=== PATIENT | female | born 1940 | race Caucasian/White ===

== ENCOUNTER → 2016-12-26 | Outpatient (CLI) | payer OTHER ==
[~2016-12-26] MED LIST: ALEN70TA4 PO; ASPI81TA28 PO; CALC-354 PO; CARB0.5D28 OPB; MXZC25 PO; PEDICHW50 PO; POTA10TA PO
[2016-12-26 17:24] LABS: ALT/SGPT 19 U/L (12-78); BLOOD UREA NITROGEN 18 mg/dl (7-18); BUN/CREATININE RATIO 18.8 (10-20); CALCIUM 10.1 mg/dl (8.5-10.1); CARBON DIOXIDE 28 mmol/L (21-32); CHLORIDE 99 mmol/L (98-107); CREATININE 0.94 mg/dl (0.60-1.20); GLUCOSE 89 mg/dl (70-99); POTASSIUM 4.3 mmol/L (3.5-5.1); SODIUM 136 mmol/L (136-145)
[2016-12-26 17:27] LABS: ALB/GLOB RATIO 1.3 (0.9-2); ALKALINE PHOSPHATASE 57 U/L (45-117); AST/SGOT 18 U/L (15-37)
== END | disposition home or self-care (01) ==
LOC: C.LABPVFM 11:33
PROVIDERS: ATTEND Nurse Practitioner
DX: I10 Essential (primary) hypertension (principal); E87.6 Hypokalemia

== ENCOUNTER → 2017-06-27 | Outpatient (CLI) | payer OTHER ==
[2017-06-27 12:30] LABS: BLOOD UREA NITROGEN 21 mg/dl (7-18); BUN/CREATININE RATIO 21.8 (10-20); CALCIUM 10.5 mg/dl (8.5-10.1); CARBON DIOXIDE 33 mmol/L (21-32); CHLORIDE 100 mmol/L (98-107); CREATININE 0.96 mg/dl (0.60-1.20); GLUCOSE 97 mg/dl (70-99); POTASSIUM 3.8 mmol/L (3.5-5.1); SODIUM 135 mmol/L (136-145)
== END | disposition home or self-care (01) ==
LOC: C.LABPVFM 08:51
PROVIDERS: ATTEND Nurse Practitioner
DX: I10 Essential (primary) hypertension (principal); E87.6 Hypokalemia; M81.0 Age-related osteoporosis without current pathological fracture; R63.0 Anorexia

== ENCOUNTER → 2017-06-30 | Outpatient (CLI) | payer OTHER | END | disposition home or self-care (01) | LOC: C.LABPVFM 08:40 | PROVIDERS: ATTEND Nurse Practitioner | DX: E83.50 Unspecified disorder of calcium metabolism (principal) ==

== ENCOUNTER → 2017-07-17 | Outpatient (CLI) | payer OTHER | END | disposition home or self-care (01) | LOC: C.MAMM 10:32 | PROVIDERS: ATTEND Nurse Practitioner | DX: M81.0 Age-related osteoporosis without current pathological fracture (principal); M85.88 Other specified disorders of bone density and structure, other site ==

== ENCOUNTER 2017-08-08 20:05 | Emergency (ER) | payer OTHER ==
[~2017-08-08] VITALS: Ht 157.5 cm; Wt 54.0 kg
[2017-08-08 20:10] VITALS: TEMP 36.6; Ht 157.5 cm; Wt 54.0 kg
[2017-08-08] MEDS ORDERED: XYLOCAINE 1%/SOD BICARB 20 ML VIAL INFIL ONE (21:00)
--- NOTE | 2017-08-08 21:37 | EMERGENCY ROOM VISIT NOTE ---
ED Visit Note First contact with patient: 20:45 CHIEF COMPLAINT: Left fifth Finger laceration HISTORY OF PRESENT ILLNESS: This 77-year-old patient cut the left fifth finger with a knife when she was peeling potatoes this evening.. She cannot get the bleeding to stop. The patient is on a baby aspirin daily but no other blood thinners. The patient's tetanus is up-to-date. The patient is right-hand dominant. REVIEW OF SYSTEMS: 6 system review was performed and was negative unless stated otherwise in history of present illness. PMH: The patient is healthy; hypertension SOCIAL HISTORY: Patient lives with her . PHYSICAL EXAM: Vital Signs: Were reviewed Reviewed Nurse's notes. GENERAL: 69- year-old white female appears in no acute distress. MENTAL Status: Alert and oriented 3. LEFT FIFTH FINGER: There is a 1.5 cm long laceration on the dorsal aspect of the distal phalanx. The edges gape apart with traction. There is no foreign material in the wound and it looks clean. There is moderate bleeding. No deep structures such as tendons or nerves are seen in the base of the wound. Extension of the finger is full and strong. EMERGENCY DEPARTMENT COURSE: The patient was evaluated. The patient's EMR medication list were reviewed. Wound Repair: Complexity: Basic. Verbal consent was obtained after the risks and benefits were explained, including but not limited to bleeding, scarring, infection, pain, and bone/joint /nerve damage. The skin was prepped with betadine and a sterile field set. The wound was anesthetized with 1.2 ml of 1% buffered lidocaine. A finger tourniquet was applied. Copious irrigation was performed using sterile saline. The wound was explored for foreign bodies and none found. Debridement was not performed. The wound edges were approximated using 5-0 Ethilon with 3 simple interrupted sutures. Hemostasis and excellent approximation was achieved. Antibacterial ointment and a sterile dressing applied. Detailed wound care instructions and signs and symptoms of infection reviewed with the patient. No complications and the patient tolerated the procedure well. The patient was independently evaluated by Dr. sexton who agrees with treatment plan. The patient was discharged home in stable condition. DIAGNOSIS: 1 cm left fifth Finger laceration DISCHARGE INSTRUCTIONS & TREATMENT: Keep wound clean and dry. No water on the area for 12-24 hrs then no soaking until sutures removed. Do not allow any crusting or dried blood to accumulate on sutures. If this occurs, use a 1:1 solution of hydrogen peroxide/water on a Q-tip to clean the wound. Use an antibiotic ointment for 3-4 days, then let wound dry. Suture removal in 8 days. Follow up sooner for any signs of infection (increasing redness, swelling , drainage). Ice and elevate for swelling and pain. Tylenol 650 mg every 6 hrs for pain. Problem List Medical Problems: (1) Acoustic neuroma Status: Chronic (2) Hypertension Status: Chronic Current/Historical Medications Scheduled Alendronate Sodium (Fosamax), 70 MG PO WK Aspirin (Aspirin Ec), 81 MG PO DAILY Calcium Carbonate-Cholecalcife (Caltrate 600+D), 1 TAB PO DAILY Pediatric Multiple Vitamin W/ (Flintstones Chewable), 1 TAB PO QAM Potassium Chloride (K-Tabs), 1 TAB PO DAILY Triamterene/Hctz (Triamterene/Hctz 37.5-25MG Tab), 1 TAB PO DAILY Scheduled PRN Carboxymethylcellulose Sodium (Refresh Tears), 1 DROPS OPB DAILY PRN for PRN Allergies Coded Allergies: Cephalosporins (Unverified Allergy, Intermediate, RASH, 01/05/10) Cefazolin (Verified Allergy, Unknown, UNKNOWN, 09/21/14) Uncoded Allergies: ADHESIVE TAPE (Allergy, Intermediate, RASH, 11/16/09) Vital Signs Date Time Temp Pulse Resp B/P (MAP) Pulse Ox O2 Delivery O2 Flow Rate FiO2 08/08/17 20:10 36.6 76 18 188/90 100 Room Air Departure Information Referrals Page Dunn, [email or web address] (PCP) Patient Instructions [facility]
[2017-08-08 21:46] VITALS: BP 181/85; PULSE 88; O2SAT 100
== END 2017-08-08 21:45 | disposition home or self-care (01) ==
LOC: C.EDB 20:05 → C.EDD 21:45
DX: S61.217A Laceration without foreign body of left little finger without damage to nail, initial encounter (principal); D33.3 Benign neoplasm of cranial nerves; I10 Essential (primary) hypertension; W26.0XXA Contact with knife, initial encounter; Y93.G1 Activity, food preparation and clean up; Z79.82 Long term (current) use of aspirin; Z79.899 Other long term (current) drug therapy

== ENCOUNTER 2017-08-16 08:26 | Emergency (ER) | payer OTHER ==
[~2017-08-16] VITALS: Ht 165.1 cm; Wt 52.0 kg
[2017-08-16 08:35] VITALS: BP 172/84; PULSE 77; TEMP 36.6; O2SAT 98; Ht 165.1 cm; Wt 52.0 kg
--- NOTE | 2017-08-16 22:15 | EMERGENCY ROOM VISIT NOTE ---
ED Visit Note First contact with patient: 08:46 77 woman presents to ED for suture removal after having sutures placed on 08/08 on her finger after cutting her finger with a knife when cutting potatoes. Denies f/c, n/v, redness, discharge. Well-appearing, AFVSS Sutures removed by nursing. Site appears well-healed without erythema or warmth. Return instructions d/w patient. Otherwise, no further f/u required.
== END 2017-08-16 09:00 | disposition home or self-care (01) ==
LOC: C.EDB 08:29 → C.EDA 09:00
DX: S61.219D Laceration without foreign body of unspecified finger without damage to nail, subsequent encounter (principal); W26.0XXD Contact with knife, subsequent encounter; Y93.G1 Activity, food preparation and clean up; Y99.8 Other external cause status

== ENCOUNTER → 2017-11-10 | Outpatient (CLI) | payer OTHER ==
[~2017-11-10] MED LIST changes: -CALC-354 PO
--- NOTE | 2017-11-11 07:47 | MAMMOGRAPHY REPORT ---
BILATERAL DIGITAL SCREENING MAMMOGRAM WITH CAD: 11/10/2017 CLINICAL HISTORY: Routine screening. Patient has no complaints. TECHNIQUE: Bilateral CC and MLO views were obtained. Current study was also evaluated with a Compute r Aided Detection (CAD) system. COMPARISON: Comparison is made to exams dated: 11/06/2016 mammogram, 11/02/2015 mammogram, 10/31/2014 m ammogram, 10/27/2013 mammogram, 10/21/2012 mammogram, and 10/15/2011 mammogram - [facility]. BREAST COMPOSITION: The tissue of both breasts is heterogeneously dense, which may obscure small mas ses. FINDINGS: There are mild vascular calcifications in the breasts. A few benign rim calcifications and punctate microcalcifications. Stable nodularity in the lateral posterior left breast. No new suspi cious mass, architectural distortion or cluster of microcalcifications is seen. IMPRESSION: ACR BI-RADS CATEGORY 1: NEGATIVE There is no mammographic evidence of malignancy. A 1 year screening mammogram is recommended. The pa tient will receive written notification of the results. Approximately 10% of breast cancers are not detected with mammography. A negative mammographic report should not delay biopsy if a clinically suggestive mass is present. Kimberly Viera M.D. ay/:11/10/2017 08:32:48 Attending Technologist: Paige Posadas RT(R)(M), [facility] [employer] Professor: Staci Freitas RT(R)(M), [facility] letter sent: Normal 1/2 BI-RADS Code: ACR BI-RADS Category 1: Negative
== END | disposition home or self-care (01) ==
LOC: C.MAMM 07:13
PROVIDERS: ATTEND Nurse Practitioner
DX: Z12.31 Encounter for screening mammogram for malignant neoplasm of breast (principal)

== ENCOUNTER → 2018-01-08 | Outpatient (CLI) | payer OTHER ==
[2018-01-08 13:31] LABS: ALBUMIN 3.7 gm/dl (3.4-5.0); ALT/SGPT 18 U/L (12-78); AST/SGOT 13 U/L (15-37); BLOOD UREA NITROGEN 17 mg/dl (7-18); CARBON DIOXIDE 33 mmol/L (21-32); GLUCOSE 86 mg/dl (70-99); SODIUM 135 mmol/L (136-145)
[2018-01-08 13:34] LABS: ALKALINE PHOSPHATASE 65 U/L (45-117); TOTAL PROTEIN 7.5 gm/dl (6.4-8.2)
== END | disposition home or self-care (01) ==
LOC: C.LABPVFM 09:40
PROVIDERS: ATTEND Nurse Practitioner
DX: I10 Essential (primary) hypertension (principal); M81.0 Age-related osteoporosis without current pathological fracture; E87.6 Hypokalemia; E83.50 Unspecified disorder of calcium metabolism

== ENCOUNTER → 2018-02-06 | Outpatient (CLI) | payer OTHER ==
--- NOTE | 2018-02-06 11:19 | DIAGNOSTIC IMAGING REPORT ---
R PELVIS 1 OR 2 VIEWS CLINICAL HISTORY: RIGHT FEMUR PAIN pain COMPARISON: None. DISCUSSION: Severe degenerative change right hip. Deformity of the right acetabulum with associated sclerosis of the articular margins not only of the femoral head but also acetabulum. Severe narrowing of the joint space. Configuration of the femoral head showed potential underlying dysplastic change. Mild superior migration of the deformed femoral bony components. No evidence for acetabular protrusion. Moderate degenerative fusion of the right sacroiliac joint. IMPRESSION: Severe degenerative change right hip and acetabulum. The above report was generated using voice recognition software. It may contain grammatical, syntax or spelling errors. Electronically signed by: Melvin Mir M.D. 02/06/2018 11:18 AM Dictated Date/Time: 02/06/2018 11:16 AM
--- NOTE | 2018-02-06 11:20 | DIAGNOSTIC IMAGING REPORT ---
RIGHT FEMUR 3 VIEWS CLINICAL HISTORY: Right leg pain. FINDINGS: AP, frog-leg, and lateral views of the right femur are correlated with radiographs of the right hip dated 06/23/2015. The skeletal structures are osteopenic. No fracture is identified. There is advanced arthritic change with extensive deformity and flattening identified in the right femoral head. There is superior subluxation of the femoral head with a broad shallow acetabulum. Extensive bony sclerosis and subchondral cyst from aeration is present within the femoral head and the acetabulum. A large calcified joint body is questioned. The femoral shaft is normal in appearance. The knee joint is grossly maintained noting arthritic change. The overlying soft tissues are normal in appearance. Small phlebolith are noted in the right hemipelvis. IMPRESSION: 1. No acute bony abnormality is identified. 2. There is osteopenia with extensive chronic deformity and arthritic change of the right hip and acetabulum as above. This is similar in appearance to the 06/23/2015 examination. Electronically signed by: Jan Perry M.D. 02/06/2018 11:19 AM Dictated Date/Time: 02/06/2018 11:17 AM
--- NOTE | 2018-02-06 12:28 | DIAGNOSTIC IMAGING REPORT ---
R HIP UNILATERAL 1 VIEW CLINICAL HISTORY: RIGHT HIP PAIN COMPARISON STUDY: Right femur 02/06/2018. FINDINGS: Single crosstable lateral view of the right hip was submitted for review. There is severe osteoarthritis at the hip with a shallow acetabulum and associated coxa magna. There is [id number] articulation. No definite fracture or dislocation on this single view. Soft tissues are unremarkable. Large calcified joint body is again noted. IMPRESSION: Chronic deformity and severe osteoarthritis within the right hip is again noted. No definite fracture identified on this single view. Electronically signed by: Dipesh Aguayo M.D. 02/06/2018 12:26 PM Dictated Date/Time: 02/06/2018 12:25 PM
== END | disposition home or self-care (01) ==
LOC: C.RDSM 12:08
PROVIDERS: ATTEND Physician Assistant
DX: M25.551 Pain in right hip (principal); M16.11 Unilateral primary osteoarthritis, right hip; M85.851 Other specified disorders of bone density and structure, right thigh

== ENCOUNTER → 2018-07-09 | Outpatient (CLI) | payer OTHER ==
[2018-07-09 13:17] LABS: BLOOD UREA NITROGEN 15 mg/dl (7-18); CALCIUM 9.6 mg/dl (8.5-10.1); CARBON DIOXIDE 29 mmol/L (21-32); GLUCOSE 90 mg/dl (70-99); POTASSIUM 3.9 mmol/L (3.5-5.1); SODIUM 131 mmol/L (136-145)
== END | disposition home or self-care (01) ==
LOC: C.LABPVFM 09:18
PROVIDERS: ATTEND Nurse Practitioner
DX: M81.0 Age-related osteoporosis without current pathological fracture (principal); I10 Essential (primary) hypertension

== ENCOUNTER 2022-08-30 17:18 | Inpatient (IN) ==
--- NOTE | 2022-08-30 18:18 | CT Scan Report ---
CT head/brain wo con CLINICAL HISTORY: Stroke Alert Technique: Contiguous axial CT images of the head were acquired from the base of the skull to the kat carlos without intravenous contrast administration. Images were viewed in brain, subdural and [facility] . Automated dose lowering techniques and/or adjustment according to patient size were utilized for this exam. Comparison: Comparison is made to CT head 10/20/2018 Findings: Areas of decreased attenuation are present in the periventricular and subcortical white matter bilate rally consistent with small vessel ischemic disease. Generalized cerebral atrophy with commensurate e nlargement of the ventricles, sulci, and cisterns is also present. There is no acute intracranial hem orrhage or evidence of acute territorial infarction. No shift of the midline structures, mass effect, or extra-axial abnormalities are shown. Atherosclerotic calcifications are present in the intracran ial segments of the internal carotid arteries. Old encephalomalacia in the right cerebellum is unchan ged. Postsurgical changes of right cerebellar surgery noted. Imaged portions of the paranasal sinuses and mastoid air cells are clear. The orbits appear normal. There are no acute fractures of the calvaria or scalp swelling. Impression: No acute intracranial hemorrhage, no evidence of acute territorial infarction or other acute intracra nial disease process. Postsurgical changes are again seen in the right cerebellum. ACT 112: Negative or not required by law. Electronically signed by: Mihai Angela M.D. 08/30/2022 6:17 PM
[2022-08-30 19:15] LABS: Hematocrit (blood only) 34.2 % (34.1-44.9); Hemoglobin 11.7 g/dl (12.0-16.0); Mean Corpuscular Hemoglobin 29.3 pg (25.0-34.0); Mean Corpuscular Hgb Conc 34.2 g/dL (32.0-36.0); Mean Corpuscular Volume 85.7 fL (80.0-100.0); Mean Platelet Volume 10.1 fL (9.4-12.3); Platelet Count 271 K/uL (130-400); RDW Coefficient of Variation 13.3 % (11.5-14.5); RDW Standard Deviation 41.7 fL (36.4-46.3); Red Blood Count 3.99 M/uL (3.93-5.22); White Blood Count 9.27 K/ul (4.8-10.8)
[2022-08-30 19:31] LABS: Partial Thromboplastin Time 27.7 Seconds (21.0-31.0); Prothrombin Time 10.6 Seconds (9.0-12.0)
[2022-08-30 19:40] LABS: Alanine Aminotransferase 31 U/L (7-52); Albumin Globulin Ratio 1.3 (0.9-2); Albumin Level 4.1 gm/dl (3.4-5.0); Alkaline Phosphatase 80 U/L (34-104); Anion Gap 7 (3-11); Aspartate Aminotransferase 37 U/L (13-39); BUN Creatinine Ratio 29.3 (10-20); Bilirubin,Total 0.5 mg/dl (0.2-1.0); Blood Urea Nitrogen 22 mg/dl (6-23); Calcium 8.9 mg/dl (8.5-10.1); Carbon Dioxide 25 mmol/L (21-32); Chloride 91 mmol/L (98-107); Est GFR (African American) 85.4 ml/min; Est GFR (Non-African American) 73.7 ml/min; Globulin 3.2 gm/dl (2.5-4.0); Glucose 119 mg/dl (70-99(Fasting)); Magnesium 1.8 mg/dl (1.7-2.4); Potassium 4.8 mmol/L (3.5-5.1); Sodium 123 mmol/L (136-145); Total Protein 7.3 gm/dl (6.0-8.3)
[2022-08-30] MEDS ORDERED: SODIUM CHLORIDE 0.9% 1000ML 500 ML IV ONE (19:47)
--- NOTE | 2022-08-30 20:02 | Emergency Department Note ---
Impression & Plan Acute hyponatremia, Leg weakness, bilateral, Acute alteration in mental status ED Provider Note NAME: LULU KC AGE: 82 SEX: F : 1940 ARRIVES VIA: Walk-In INFORMANT: Patient, the patient's family members ED PROVIDER(S): Manohar Lazo DO CHIEF COMPLAINT: Syncope HPI: The patient is an 82-year-old female who presented to the emergency department for an evaluation of syncope. The patient had an episode while she was riding in a car with her significant other. Apparently she lost consciousness and slumped forward. Her significant other called 911 and the patient was evaluated by 911 and EMS. The patient was awake and alert. She did not have any specific complaints. It was advised that the patient come to the emergency department but the patient and her significant other wanted to come by private vehicle. The patient herself has no complaints. Family member stated that they do not feel that she is eating and drinking appropriately. They have noticed no nausea or vomiting. They state the patient has had overall generalized weakness especially over the last few weeks. She is had no changes to her medications. She said no new medications. She has had no trauma. ROS: See above HPI for pertinent positives & negatives. A total of 10 systems reviewed and were otherwise negative. PAST MEDICAL HISTORY: See Below PAST SURGICAL HISTORY: See Below FAMILY HISTORY: See Below SOCIAL HISTORY: See Below HOME MEDICATIONS: See Below ALLERGIES: See Below VITALS: See Below PHYSICAL EXAMINATION: GENERAL: She is awake and looking around the room. She does not appear to be un comfortable or in pain. EYES: The conjunctivae are clear. The pupils are round and reactive. EARS, NOSE, MOUTH AND THROAT: The nose is without any evidence of any deformity. NECK: The neck is nontender and supple. RESPIRATORY: Normal respiratory effort is noted there is no evidence of wheezing rhonchi or rales CARDIOVASCULAR: Regular rate and rhythm noted there no murmurs rubs or gallops normal S1 normal S2. GASTROINTESTINAL: The abdomen is soft. Abdomen is nontender. MUSCULOSKELETAL/EXTREMITIES: There is no evidence of gross deformity full range of motion is noted in the hips and shoulders. SKIN: Skin is warm and dry. Trace pedal edema was noted bilaterally. NEUROLOGIC: Awake and looking around the room. Strength was diminished but symmetric. Patellar tendon reflexes are 1+ bilaterally. MEDICAL DECISION MAKING: The patient is an 82-year-old female who presented to the emergency department for an evaluation of generalized weakness. The patient was reevaluated multiple times. I discussed patient's laboratory and radiographic studies with her and her family members. Ultimately she was found to have signs of hyponatremia. Given her symptoms I discussed her case with the on-call [facility] hospitalist. They have agreed to evaluate the patient in the emergency department for further management and disposition. The patient was treated with a small fluid bolus. Triage Nursing notes reviewed. Prior medical records reviewed Vital Signs: reviewed and remarkable for no significant abnormalities Differential diagnosis: Infection, dehydration, metabolic abnormality, hypo/hyperglycemia, electrolyte disturbance, anemia, hypoxia, cardiac sources, intracerebral event, toxicologic, neurologic, as well as other pathologies. ER treatment provided: See below Diagnostics interpreted by me: ECG: EKG was obtained in the emergency department. My interpretation is normal sinus rhythm at 86 bpm. There is no ectopy. Anterior Q waves are noted. This was compared to a tracing from May 24, 2022. No changes were noted. Cardiac Monitoring: An order was placed for continuous cardiac monitoring. The monitor shows a rate of 82 bpm with sinus rhythm. Laboratory studies: As stated above and show below. Imaging studies: See below Consultation(s): I discussed this case with Dr. Bean who is on-call for the [facility] hospitalist group. Past Med/Surg History Medical History Acoustic neuroma Depression Gait disturbance Hearing loss Hx of cataract Hypercalciuria Hypertension Hypertensive urgency Hypokalemia Osteoporosis SIADH (syndrome of inappropriate ADH production) Vitamin D deficiency Surgical History History of craniotomy excision of acoustic neuroma Hx of cataract surgery Hx of cholecystectomy Hx of hysterectomy Hx of total knee replacement Family History Aunt Breast cancer Brother Colorectal cancer Heart problem Mother Heart problem Father Heart problem Sister Multiple sclerosis Other Family history non-contributory Denies family history of Ovarian cancer Prostate cancer Myocardial infarction Social History Smoking Status: Never smoker Second Hand Exposure: No; Hx Alcohol Use: No Hx Substance Use: No Preferred Language: Mauritanian Communication Ability: Impaired Visual Impairment: No Limitations Hearing Ability: Hard of Hearing Skid Man Required: No Beliefs That Will Affect Care: None marital status: Current Living Situation: Spouse current occupational status: retired How many Children do You have: 2 Other Information That Helps Us Care for You: No Feels Safe at Home: Yes Safety Concerns: Feels Safe At This Time Childhood Exposure to Second-Hand Smoke: No caffeine: Yes Dental Care, Regularly: Yes Physical Activity Frequency: Does not Exercise Seatbelt Use: always Sunscreen Use: No Assistive Devices: Hearing Aid - Left, Walker and Wheelchair Allergies Allergies Allergy/AdvReac Type Severity Reaction Status Date / Time Cephalosporins Allergy Intermediate RASH Verified 08/27/22 09:05 cefazolin Allergy Unknown UNKNOWN Verified 08/27/22 09:05 donepezil [From Aricept] Allergy Unknown Unknown Verified 08/27/22 09:05 adhesive tape Allergy Verified 08/27/22 09:05 amlodipine [From Norvasc] Allergy Edema Verified 08/27/22 09:05 Sulfa (Sulfonamide Allergy Verified 08/27/22 09:05 Antibiotics) Home Meds Home Medications Medication Instructions Recorded Confirmed aspirin 81 mg tablet,delayed 81 mg PO DAILY 10/21/18 08/27/22 release (Aspir-) pediatric multivitamin no.7-folic 1 tab PO DAILY 10/21/18 08/27/22 acid 100 mcg chewable tablet (Flintstones Tab Chew) acetaminophen 500 mg tablet 500 mg PO Q6H PRN Pain 09/05/20 08/30/22 (Tylenol Extra Strength) Previous Rx's Medication Instructions Recorded escitalopram oxalate 5 mg tablet 5 mg PO HS PRN Anxiety #90 tabs 01/10/22 lisinopril 5 mg tablet 5 mg PO DAILY #90 tabs 07/11/22 cinacalcet 30 mg tablet 30 mg PO DAILY #30 tabs 08/27/22 Results & Data (ED) Vital Signs Vital Signs - 24 hr 08/30/22 17:25 08/30/22 20:17 08/30/22 20:34 Temperature 36.8 C 36.8 C Temperature Source Temporal Artery Scan Oral Pulse Rate 96 H Pulse Rate [Apical] 89 Respiratory Rate 20 18 Respiratory Effort / Characteristics Non-Labored Respiratory Depth Normal Blood Pressure 136/63 Blood Pressure [Right Arm] 160/73 H Blood Pressure Mean 87 Blood Pressure Mean [Right Arm] 102 Pulse Oximetry 98 95 Oxygen Delivery Method Room Air Room Air Sepsis Recent Fever Within 48 Hours No Sepsis New/Unexplained Change in Mental Status N/A Sepsis Action Taken by Nursing No Action Required Home Medications Current Medication List: was personally reviewed by me Laboratory Data Attestation: I reviewed the patient's lab results. Result diagrams: 08/31/22 06:04 08/31/22 06:04 Lab Results 08/30/22 08/30/22 08/30/22 Range/Units 18:59 18:59 18:59 WBC 9.27 (4.8-10.8) K/ul RBC 3.99 (3.93-5.22) M/uL Hgb 11.7 L (12.0-16.0) g/dl Hct 34.2 (34.1-44.9) % MCV 85.7 (80.0-100.0) fL MCH 29.3 (25.0-34.0) pg MCHC 34.2 (32.0-36.0) g/dL RDW Std Deviation 41.7 (36.4-46.3) fL RDW Coeff of Missy 13.3 (11.5-14.5) % Plt Count 271 (130-400) K/uL MPV 10.1 (9.4-12.3) fL PT 10.6 (9.0-12.0) Seconds INR 1.0 (0.9-1.1) APTT 27.7 (21.0-31.0) Seconds PTT Ratio 1.0 Sodium 123 L (136-145) mmol/L Potassium 4.8 (3.5-5.1) mmol/L Chloride 91 L (98-107) mmol/L Carbon Dioxide 25 (21-32) mmol/L Anion Gap 7 (3-11) BUN 22 (6-23) mg/dl Creatinine 0.75 (0.6-1.2) mg/dl Est Cr Clr Drug Dosing Not Reportable Est GFR ( Amer) 85.4 ml/min Est GFR (Non-Af Amer) 73.7 ml/min BUN/Creatinine Ratio 29.3 H (10-20) Glucose 119 H (70-99(Fasting)) mg/dl Osmolality (280-300) mOsm/kg Calcium 8.9 (8.5-10.1) mg/dl Magnesium 1.8 (1.7-2.4) mg/dl Total Bilirubin 0.5 (0.2-1.0) mg/dl AST 37 (13-39) U/L ALT 31 (7-52) U/L Alkaline Phosphatase 80 (34-104) U/L Total Protein 7.3 (6.0-8.3) gm/dl Albumin 4.1 (3.4-5.0) gm/dl Globulin 3.2 (2.5-4.0) gm/dl Albumin/Globulin Ratio 1.3 (0.9-2) SARS-CoV-2, RNA, NAAT (NEGATIVE) 08/30/22 08/30/22 Range/Units 18:59 19:51 WBC (4.8-10.8) K/ul RBC (3.93-5.22) M/uL Hgb (12.0-16.0) g/dl Hct (34.1-44.9) % MCV (80.0-100.0) fL MCH (25.0-34.0) pg MCHC (32.0-36.0) g/dL RDW Std Deviation (36.4-46.3) fL RDW Coeff of Missy (11.5-14.5) % Plt Count (130-400) K/uL MPV (9.4-12.3) fL PT (9.0-12.0) Seconds INR (0.9-1.1) APTT (21.0-31.0) Seconds PTT Ratio Sodium (136-145) mmol/L Potassium (3.5-5.1) mmol/L Chloride (98-107) mmol/L Carbon Dioxide (21-32) mmol/L Anion Gap (3-11) BUN (6-23) mg/dl Creatinine (0.6-1.2) mg/dl Est Cr Clr Drug Dosing Est GFR ( Amer) ml/min Est GFR (Non-Af Amer) ml/min BUN/Creatinine Ratio (10-20) Glucose (70-99(Fasting)) mg/dl Osmolality 265 L (280-300) mOsm/kg Calcium (8.5-10.1) mg/dl Magnesium (1.7-2.4) mg/dl Total Bilirubin (0.2-1.0) mg/dl AST (13-39) U/L ALT (7-52) U/L Alkaline Phosphatase (34-104) U/L Total Protein (6.0-8.3) gm/dl Albumin (3.4-5.0) gm/dl Globulin (2.5-4.0) gm/dl Albumin/Globulin Ratio (0.9-2) SARS-CoV-2, RNA, NAAT NEGATIVE (NEGATIVE) Administered Medications Sodium Chloride (Sodium Chloride 1 Gm Tablet) 1 gm PO BID LAVINIA Stop: 09/29/22 22:35 Last Admin: 08/31/22 00:28 Dose: 1 gm Documented By: PAH Discontinued Medications Sodium Chloride (Nss 1000ml) 500 mls @ 999 mls/hr IV .Q31M ONE Stop: 08/30/22 20:17 Last Infusion: 08/30/22 20:29 Dose: 0 mls/hr Documented By: Admin: 08/30/22 19:57 Dose: 999 mls/hr Documented By: QGV Imaging Data Radiologist's Impression: Chest X-Ray 08/30/22 20:02 XR chest 1V portable CLINICAL HISTORY: weakness TECHNIQUE: Single frontal radiograph of the chest was obtained. Comparison: Comparison is made to chest radiograph 05/24/2022 FINDINGS: No lines and tubes are seen. Calcified aortic knob is seen. Linear atelectasis at the left lower lung is seen. No evidence of pleural effusion or pneumothorax. Old healed rib fractures are noted with bony bridging. IMPRESSION: No acute chest disease. ACT 112: Negative or not required by law. Electronically signed by: Mihai Angela M.D. 08/30/2022 8:35 PM Discharge Plan Visit Data Chief Complaint: Illness Stated Complaint: DISORIENTED, PASSED OUT ED Provider: Manohar Lazo Discharge Problem: Acute hyponatremia, Leg weakness, bilateral, Acute alteration in mental status Patient Disposition: Admitted As Inpatient Discharge Instructions Interventions: ED Discharge Assessment Last Done: 08/30/22 22:08
--- NOTE | 2022-08-30 20:20 | History & Physical Report ---
Date of Service August 30, 2022 Assessment & Plan (1) Hyponatremia: Plan: - Chronically low at 130-132 over the past 2 years but 123 today and is likely the cause of her near-syncope/syncope event today. - Received 500 cc NS in ED. - Will start salt tabs. - Serum osm 265, urine studies pending. - Chronic balance issues s/p acoustic neuroma, not likely a symptom of hyponatremia. - Fluid restriction. (2) Near syncope: Plan: - Likely due to hyponatremia. She has had several other episodes of near syncope or syncope this summer and a cardiac workup in May was negative for cardiac etioloy. Neuro note from 07/24 indicates it is not seizure, CVA/TIA, or PArkinson's disease. - Most likely cause is SIADH induced hyponatremia. - PT and OT to eval and treat regarding overall weakness. - Orthostatic VS daily. 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 Has been seen by Dr. Aguilar with endocrinology since for osteoporosis, hyperparathyroidism, as well as SIADH. - Not on any meds that could cause or contribute. Patient was offered but cannot afford urea. - Strongly encourage to only drink water when thirsty. Should not increase water intake to help with strength. (4) Hypertension: Plan: - Continue lisinopril. (5) Hyperparathyroidism: Plan: - Continue w/ Calcinet. Patient not interested in parathyroid surger. (6) Osteoporosis: Plan: - See #7 hyperparathyroidism. (7) Benign head tremor: Plan: - Parkinson dz r/o by neurology. Currently not requiring treatment, likely refractory to pharmacotherapy and risks > benefits. (8) Depression: Plan: - Continue lexapro. Plan - Admit to PCU. - SCDs for VTE ppx. - Full Code. History of Present Illness Primary Care Provider: HU Oliveira Rubivj Arzate is an 84-year-old female with past medical history significant for SIADH, hypertension, hypercalcemia, and depression who presents today after a possible syncopal episode. She was the passenger in a car with her when she suddenly slumped forward and stop responding. They did call 911 and upon their arrival, patient was alert, oriented, and had no complaints at that time. In our ED, sodium is low at 123, an acute change from just 3 days ago when it was 132. Patient says she has been feeling well over the past several days, however family has concerned that she is not eating and drinking well at home and that she has just been generally weak for several weeks. It seems they have been encouraging increased oral intake, both foods and water to increase her strength. She does have a documented history of SIADH and her sodium is chronically low around 130. She has been taken off any medications that could further worsen this and orellana followed with Dr. Aguilar. [employer] to be in idiopathic SIADH. His strict recommendations to limit oral intake to only when she is thirsty. She cannot afford urea. My exam, patient does not complain of anything and is felt well prior to today's event. She had 2 syncopal events over the past that are vasovagal in nature in setting of dehydration from diarrhea or vomiting. She has been evaluated both neurology and cardiology standpoint, and is not felt that her episodes are indicative of seizures, TIA/CVA, Parkinson's disease or due to a sinus arrhythmia or other cardiac etiology. In the ED, she is mildly hypertensive and borderline tachycardic. Not from her low sodium, labs are significant for hemoglobin 11.7, dropped from 13.1 several months ago. Not had any dark stools or obvious rectal bleeding. Allergies Allergy/AdvReac Type Severity Reaction Status Date / Time Cephalosporins Allergy Intermediate RASH Verified 08/27/22 09:05 cefazolin Allergy Unknown UNKNOWN Verified 08/27/22 09:05 donepezil [From Aricept] Allergy Unknown Unknown Verified 08/27/22 09:05 adhesive tape Allergy Verified 08/27/22 09:05 amlodipine [From Norvasc] Allergy Edema Verified 08/27/22 09:05 Sulfa (Sulfonamide Allergy Verified 08/27/22 09:05 Antibiotics) Home Medications Medication Instructions Recorded Confirmed Type aspirin 81 mg tablet,delayed 81 mg PO DAILY 10/21/18 08/27/22 History release (Aspir-) pediatric multivitamin no.7-folic 1 tab PO DAILY 10/21/18 08/27/22 History acid 100 mcg chewable tablet (Flintstones Tab Chew) acetaminophen 500 mg tablet 500 mg PO Q6H PRN Pain 09/05/20 08/30/22 History (Tylenol Extra Strength) escitalopram oxalate 5 mg tablet 5 mg PO HS PRN Anxiety #90 tabs 01/10/22 08/30/22 Rx lisinopril 5 mg tablet 5 mg PO DAILY #90 tabs 07/11/22 08/30/22 Rx cinacalcet 30 mg tablet 30 mg PO DAILY #30 tabs 08/27/22 08/30/22 Rx Past Med/Surg History Medical History Acoustic neuroma Depression Gait disturbance Hearing loss Hx of cataract Hypercalciuria Hypertension Hypertensive urgency Hypokalemia Osteoporosis SIADH (syndrome of inappropriate ADH production) Vitamin D deficiency Surgical History History of craniotomy excision of acoustic neuroma Hx of cataract surgery Hx of cholecystectomy Hx of hysterectomy Hx of total knee replacement Family History Aunt Breast cancer Brother Colorectal cancer Heart problem Mother Heart problem Father Heart problem Sister Multiple sclerosis Other Family history non-contributory Denies family history of Ovarian cancer Prostate cancer Myocardial infarction Social History Smoking Status: Never smoker Second Hand Exposure: No; Hx Alcohol Use: No Hx Substance Use: No Preferred Language: Mauritanian Communication Ability: Impaired Visual Impairment: No Limitations Hearing Ability: Hard of Hearing [employer] Required: No Beliefs That Will Affect Care: None marital status: Current Living Situation: Spouse current occupational status: retired How many Children do You have: 2 Other Information That Helps Us Care for You: No Feels Safe at Home: Yes Safety Concerns: Feels Safe At This Time Childhood Exposure to Second-Hand Smoke: No caffeine: Yes Dental Care, Regularly: Yes Physical Activity Frequency: Does not Exercise Seatbelt Use: always Sunscreen Use: No Assistive Devices: Hearing Aid - Left, Walker and Wheelchair Review of Systems Review of Systems: Constitutional: No fever/chills, weakness, fatigue, myalgias, anorexia, night sweats Eyes: No diplopia, no worsening or blurred vision ENT: normal hearing, no trouble swallowing Respiratory: No cough, sputum, dyspnea at rest or on exertion Cardiovascular: No chest pain, tightness or palpitations Abdomen: No pain, nausea, vomiting, diarrhea or constipation : Denies dysuria, hematuria, increased urgency/frequency, urinary retention Musculoskeletal: No joint pain, calf pain, swelling Neurologic: No weakness, numbness/tingling, or balance problems Psychiatric: No anxiety or depression Skin: No rash or itch Physical Exam Physical Exam: General: awake, alert, no apparent distress Head: Normocephalic, atraumatic ENT: PERRL, EOMI, no pharyngeal exudate, mucous membranes moist Chest: Clear to auscultation, on room air, no adventitious breath sounds Cardiac: Regular rate and rhythm, no murmur, no JVD, normal peripheral pulses, good capillary refill Abdominal: NABS x 4 quadrants, soft, nontender to palpation, no rebound, guarding or tenderness Extremities: Normal inspection, no peripheral edema or erythema, calfs nontender to palpation Psych: Normal mood and affect Neuro: AAO x 3, strength intact bilaterally and rated 5/5, no motor deficits, speech is clear, no peripheral sensory deficits Skin: no rash or erythema Results & Data Results & Data ([facility]) Vital Signs (Past 12 Hours) Vital Signs Temp Pulse Resp BP Pulse Ox O2 Del Method 08/30/22 17:25 36.8 C 96 H 20 136/63 98 Room Air Laboratory Results Abnormal lab results 08/30/22 08/30/22 08/30/22 Range/Units 18:59 18:59 18:59 Hgb 11.7 L (12.0-16.0) g/dl Sodium 123 L (136-145) mmol/L Chloride 91 L (98-107) mmol/L BUN/Creatinine Ratio 29.3 H (10-20) Glucose 119 H (70-99(Fasting)) mg/dl Osmolality 265 L (280-300) mOsm/kg Diagnostic Findings Head CT 08/30/22 17:28 CT head/brain wo con CLINICAL HISTORY: Stroke Alert Technique: Contiguous axial CT images of the head were acquired from the base of the skull to the vertex without intravenous contrast administration. Images were viewed in brain, subdural and bone windows. Automated dose lowering techniques and/or adjustment according to patient size were utilized for this exam. Comparison: Comparison is made to CT head 10/20/2018 Findings: Areas of decreased attenuation are present in the periventricular and subcortical white matter bilaterally consistent with small vessel ischemic disease. Generalized cerebral atrophy with commensurate enlargement of the ventricles, sulci, and cisterns is also present. There is no acute intracranial hemorrhage or evidence of acute territorial infarction. No shift of the midline structures, mass effect, or extra-axial abnormalities are shown. Atherosclerotic calcifications are present in the intracranial segments of the internal carotid arteries. Old encephalomalacia in the right cerebellum is unchanged. Postsurgical changes of right cerebellar surgery noted. Imaged portions of the paranasal sinuses and mastoid air cells are clear. The orbits appear normal. There are no acute fractures of the calvaria or scalp swelling. Impression: No acute intracranial hemorrhage, no evidence of acute territorial infarction or other acute intracranial disease process. Postsurgical changes are again seen in the right cerebellum. ACT 112: Negative or not required by law. Electronically signed by: Mihai Angela M.D. 08/30/2022 6:17 PM Chest X-Ray 08/30/22 20:02 XR chest 1V portable CLINICAL HISTORY: weakness TECHNIQUE: Single frontal radiograph of the chest was obtained. Comparison: Comparison is made to chest radiograph 05/24/2022 FINDINGS: No lines and tubes are seen. Calcified aortic knob is seen. Linear atelectasis at the left lower lung is seen. No evidence of pleural effusion or pneumothorax. Old healed rib fractures are noted with bony bridging. IMPRESSION: No acute chest disease. ACT 112: Negative or not required by law. Electronically signed by: Mhiai Angela M.D. 08/30/2022 8:35 PM ECG Additional Comments: pending at time of admission Code Status & VTE Plan Code Status Full Code. Supervising Physician Co-Signing Physician Notes Attending addendum: I have physically seen this patient, have supervised the SANYA's activities, and agree with the H&P unless as otherwise noted. Assessment and Plan: Hyponatremia/history of SIADH- Sodium 123, serum osmolality 265, urine osmolality pending Start sodium chloride 1 g p.o. twice daily Fluid restrict as noted to 1500 cc Did receive 500 cc normal saline from the ED Likely cause of near syncope Education needed for patient and family Hyperparathyroidism- Following with endocrinology Dr. Aguilar Remaining orders and notations as noted PG Care Time/CCT Total # of Minutes Spent Total Time Spent with Patient: Total time spent is greater than 50% in coordination of care (as documented) at patient's floor/unit and/or counseling patient: Coding Level of Care Code 67461 Initial Inpt Care Lvl 3 Diagnoses Hyponatremia E87.1 Near syncope R55 SIADH (syndrome of inappropriate ADH production) E22.2 Hypertension I10 Hyperparathyroidism E21.3 Osteoporosis M81.0 Benign head tremor G25.0 Depression F32.9
--- NOTE | 2022-08-30 20:37 | XRay Report ---
XR chest 1V portable CLINICAL HISTORY: weakness TECHNIQUE: Single frontal radiograph of the chest was obtained. Comparison: Comparison is made to chest radiograph 05/24/2022 FINDINGS: No lines and tubes are seen. Calcified aortic knob is seen. Linear atelectasis at the left lower lung is seen. No evidence of pleural effusion or pneumothorax. Old healed rib fractures are noted with yasmine ny bridging. IMPRESSION: No acute chest disease. ACT 112: Negative or not required by law. Electronically signed by: Mihai Angela M.D. 08/30/2022 8:35 PM
[2022-08-30] MEDS ORDERED: ONDANSETRON INJ 2 MG/ML 2 ML VIAL IV PRN (22:36)
[2022-08-30] MEDS ORDERED: ESCITALOPRAM OXALATE 10 MG TAB PO PRN (22:36)
[2022-08-30] MEDS ORDERED: ACETAMINOPHEN 500 MG TAB PO PRN (22:36)
[2022-08-30] MEDS ORDERED: POLYETHYLENE (MIRALAX) 17 GM PACK PO PRN (22:36)
[2022-08-30 23:11] LABS: Appearance Urine Clear (Clear); Bacteria Urine Automated Negative (Negative); Bilirubin Urine Negative (Negative); Blood Urine Negative (Negative); Color Urine Yellow; Epithelial Cell Urine Auto >30 /lpf (0-5); Glucose Urine UA Negative (Negative); Ketones Urine 1+ (Negative); Leukocyte Esterase Urine Negative (Negative); Nitrite Urine Negative (Negative); Protein Urine 1+ (Negative); RBC Urine Automated 0-4 /hpf (0-4); Specific Gravity Urine 1.013 (1.000-1.030); Urobilinogen Urine Negative (Negative)
[2022-08-31] MEDS: SODIUM CHLORIDE 1 GM TABLET PO SCH ×3 (00:28→20:02)
[2022-08-31 06:27] LABS: Basophils # (auto) 0.02 K/uL (0-0.2); Basophils % (auto) 0.4 %; Eosinophils # (auto) 0.05 K/uL (0-0.50); Hematocrit (blood only) 31.4 % (34.1-44.9); Hemoglobin 10.5 g/dl (12.0-16.0); Immature Granulocytes # (auto) 0.01 K/uL (0.00-0.02); Immature Granulocytes % (auto) 0.2 %; Lymphocytes # (auto) 0.86 K/uL (1.2-3.4); Lymphocytes % (auto) 17.3 %; Mean Corpuscular Hemoglobin 28.8 pg (25.0-34.0); Mean Corpuscular Hgb Conc 33.4 g/dL (32.0-36.0); Monocytes # (auto) 0.77 K/uL (0.24-0.82); Monocytes % (auto) 15.5 %; Neutrophils # (auto) 3.26 K/uL (1.4-6.5); Neutrophils % (auto) 65.6 %; Platelet Count 228 K/uL (130-400); RDW Coefficient of Variation 13.4 % (11.5-14.5); RDW Standard Deviation 42.2 fL (36.4-46.3); Red Blood Count 3.65 M/uL (3.93-5.22); White Blood Count 4.97 K/ul (4.8-10.8)
[2022-08-31 08:01] LABS: BUN Creatinine Ratio 28.1 (10-20); Calcium 8.7 mg/dl (8.5-10.1); Est GFR (African American) 95.6 ml/min; Est GFR (Non-African American) 82.5 ml/min; Magnesium 1.8 mg/dl (1.7-2.4); Potassium 4.5 mmol/L (3.5-5.1)
[2022-08-31] MEDS: CINACALCET HCL 30 MG TAB PO SCH (09:10)
[2022-08-31] MEDS: lisinopril 5 MG TAB PO SCH (09:10)
--- NOTE | 2022-08-31 11:11 | Hospitalist Progress Note ---
Date of Service August 31, 2022 Assessment & Plan (1) Hyponatremia: Plan: -Patient has a history of hyponatremia from SIADH -Presents with near syncope, found to have a serum Sodium of 123 -Started on salt tablets and fluid restriction -Serum sodium today 129 -Will continue fluid restriction and salt tablets -Recheck BMP tomorrow (2) Near syncope: Plan: - Likely due to hyponatremia. She has had several other episodes of near syncope or syncope this summer and a cardiac workup in May was negative for cardiac etioloy. Neuro note from 07/24 indicates it is not seizure, CVA/TIA, or PArkinson's disease. - Most likely cause is SIADH induced hyponatremia. - PT and OT to eval and treat regarding overall weakness. - Orthostatic VS daily. 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 Has been seen by Dr. Aguilar with endocrinology since for osteoporosis, hyperparathyroidism, as well as SIADH. - Not on any meds that could cause or contribute. Patient was offered but cannot afford urea. - Strongly encourage to only drink water when thirsty. Should not increase water intake to help with strength. (4) Hypertension: Plan: -BP 119/64 today - Continue lisinopril. (5) Hyperparathyroidism: Plan: - Continue w/ Calcinet. Patient not interested in parathyroid surgery (6) Osteoporosis: Plan: - See #7 hyperparathyroidism. (7) Benign head tremor: Plan: - Parkinson dz r/o by neurology. Currently not requiring treatment, likely refractory to pharmacotherapy and risks > benefits. (8) Depression: Plan: - Continue lexapro. Plan -Monitor - SCDs for VTE ppx. - Full Code. Admission and Anticipated Discharge Date Admission Date: August 30, 2022 Subjective patient seen and examined, hard of hearing, no new complaints Review of Systems Review of Systems: All systems reviewed are negative, apart from the ones contained in the history. Physical Exam Physical Exam: The patient is awake, alert and oriented 3, well developed and well nourished, normocephalic and atraumatic, lying in bed and in no acute distress. HEENT--PERRL, EOMI, mucous membranes and oropharynx mildly dry Neck--supple. No JVD. No bruits. Thyroid normal, trachea midline, no adenopathy. Heart--normal S1 and S2. No murmurs, rubs or gallops. Lungs--clear bilaterally, no respiratory distress, no accessory muscle use. Abdomen--normal bowel sounds and soft. Mild epigastric and left sided abdominal pain Extremities--no cyanosis or clubbing. No edema. Dermatologic--normal skin turgor, normal color, no abnormal lymph nodes, no rash. Neurologic--cranial nerves II through XII grossly intact. Rheumatologic--normal range of motion. Psychiatric--normal affect. Results & Data Results [facility] ([facility]) Vital Signs (Past 12 Hours) Vital Signs Temp Pulse Pulse Resp BP Pulse Ox O2 Del Method 08/31/22 11:04 99.1 F 86 19 119/64 96 Room Air 08/31/22 08:05 99.3 F 83 19 131/64 94 08/31/22 09:14 83 08/31/22 04:02 90 08/31/22 04:01 98.5 F 96 H 18 155/74 H 97 Room Air PG Care Time/CCT Total # of Minutes Spent Total Time Spent with Patient: Total time spent is greater than 50% in coordination of care (as documented) at patient's floor/unit and/or counseling patient: Coding Level of Care Code 39137 Subseq Hosp Care Lvl 2 Diagnoses Hyponatremia E87.1 Near syncope R55 SIADH (syndrome of inappropriate ADH production) E22.2 Hypertension I10 Hyperparathyroidism E21.3 Osteoporosis M81.0 Benign head tremor G25.0 Depression F32.9 Time Spent (min) 35
[2022-09-01 07:10] LABS: BUN Creatinine Ratio 29.3 (10-20); Calcium 8.4 mg/dl (8.5-10.1); Creatinine Clr Calc Pharmacy 56.5 ml/min; Est GFR (African American) 98.8 ml/min; Est GFR (Non-African American) 85.2 ml/min; Potassium 4.1 mmol/L (3.5-5.1)
[2022-09-01] MEDS: lisinopril 5 MG TAB PO SCH (09:07)
[2022-09-01] MEDS: CINACALCET HCL 30 MG TAB PO SCH (09:08)
[2022-09-01] MEDS: SODIUM CHLORIDE 1 GM TABLET PO SCH ×2 (09:08→20:00)
--- NOTE | 2022-09-01 11:12 | Hospitalist Progress Note ---
Date of Service September 01, 2022 Assessment & Plan (1) Hyponatremia: Plan: - Chronically low at 130-132 over the past 2 years but 123 on admission and is likely the cause of her near-syncope/syncope event. - Received 500 cc NS in ED. - Was started on salt tabs. 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 She has had several other episodes of near syncope or syncope this summer and a cardiac workup in May was negative for cardiac etioloy. Neuro note from 07/24 indicates it is not seizure, CVA/TIA, or PArkinson's disease. - Most likely cause is SIADH induced hyponatremia. - PT and OT to eval and treat regarding overall weakness. - Orthostatic VS daily. 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 Has been seen by Dr. Aguilar with endocrinology since for osteoporosis, hyperparathyroidism, as well as SIADH. - Not on any meds that could cause or contribute. Patient was offered but cannot afford urea. - Strongly encourage to only drink water when thirsty. Should not increase water intake to help with strength. (4) Hypertension: Plan: - Continue lisinopril. (5) Hyperparathyroidism: Plan: - Continue w/ Calcinet. Patient not interested in parathyroid surger. (6) Osteoporosis: Plan: - See #7 hyperparathyroidism. (7) Benign head tremor: Plan: - Parkinson dz r/o by neurology. Currently not requiring treatment, likely refractory to pharmacotherapy and risks > benefits. (8) Depression: Plan: - Continue lexapro. Plan -Hopefully d/c tomorrow morning if serum sodium is back to wnl Admission and Anticipated Discharge Date Admission Date: August 30, 2022 Subjective patient seen and examined, hard of hearing, no new complaints Review of Systems Review of Systems: All systems reviewed are negative, apart from the ones contained in the history. Physical Exam Physical Exam: The patient is awake, alert and oriented 3, well developed and well nourished, normocephalic and atraumatic, lying in bed and in no acute distress. HEENT--PERRL, EOMI, mucous membranes and oropharynx mildly dry Neck--supple. No JVD. No bruits. Thyroid normal, trachea midline, no adenopathy. Heart--normal S1 and S2. No murmurs, rubs or gallops. Lungs--clear bilaterally, no respiratory distress, no accessory muscle use. Abdomen--normal bowel sounds and soft. Mild epigastric and left sided abdominal pain Extremities--no cyanosis or clubbing. No edema. Dermatologic--normal skin turgor, normal color, no abnormal lymph nodes, no rash. Neurologic--cranial nerves II through XII grossly intact. Rheumatologic--normal range of motion. Psychiatric--normal affect. Results & Data Results & Data ([facility]) Vital Signs (Past 12 Hours) Vital Signs Temp Pulse Pulse Resp BP Pulse Ox O2 Del Method 09/01/22 10:58 97.5 F L 71 16 112/48 L 97 Room Air 09/01/22 08:19 Room Air 09/01/22 07:28 73 09/01/22 07:10 98.2 F 72 17 150/70 H 94 Room Air 09/01/22 03:16 98.2 F 80 18 148/74 H 97 Room Air PG Care Time/CCT Total # of Minutes Spent Total Time Spent with Patient: Total time spent is greater than 50% in coordination of care (as documented) at patient's floor/unit and/or counseling patient: Coding Level of Care Code 91047 Subseq Hosp Care Lvl 2 Diagnoses Hyponatremia E87.1 Near syncope R55 SIADH (syndrome of inappropriate ADH production) E22.2 Hypertension I10 Hyperparathyroidism E21.3 Osteoporosis M81.0 Benign head tremor G25.0 Depression F32.9 Time Spent (min) 35
[2022-09-02 06:55] LABS: BUN Creatinine Ratio 28.1 (10-20); Calcium 8.5 mg/dl (8.5-10.1); Creatinine Clr Calc Pharmacy 50.5 ml/min; Est GFR (African American) 95.6 ml/min; Est GFR (Non-African American) 82.5 ml/min; Potassium 4.1 mmol/L (3.5-5.1)
[2022-09-02] MEDS: CINACALCET HCL 30 MG TAB PO SCH (08:44)
[2022-09-02] MEDS: SODIUM CHLORIDE 1 GM TABLET PO SCH (08:44)
[2022-09-02] MEDS: lisinopril 5 MG TAB PO SCH (08:44)
--- NOTE | 2022-09-02 08:51 | Discharge Summary ---
Discharge Summary Date of Service September 02, 2022 Admission HPI Per Admitting Provider Rubi Arzate is an 84-year-old female with past medical history significant for SIADH, hypertension, hypercalcemia, and depression who presents today after a possible syncopal episode. She was the passenger in a car with her when she suddenly slumped forward and stop responding. They did call 911 and upon their arrival, patient was alert, oriented, and had no complaints at that time. In our ED, sodium is low at 123, an acute change from just 3 days ago when it was 132. Patient says she has been feeling well over the past several days, however family has concerned that she is not eating and drinking well at home and that she has just been generally weak for several weeks. It seems they have been encouraging increased oral intake, both foods and water to increase her strength. She does have a documented history of SIADH and her sodium is chronically low around 130. She has been taken off any medications that could further worsen this and orellana followed with Dr. Aguilar. [place] to be in idiopathic SIADH. His strict recommendations to limit oral intake to only when she is thirsty. She cannot afford urea. My exam, patient does not complain of anything and is felt well prior to today's event. She had 2 syncopal events over the past that are vasovagal in nature in setting of dehydration from diarrhea or vomiting. She has been evaluated both neurology and cardiology standpoint, and is not felt that her episodes are indicative of seizures, TIA/CVA, Parkinson's disease or due to a sinus arrhythmia or other cardiac etiology. In the ED, she is mildly hypertensive and borderline tachycardic. Not from her low sodium, labs are significant for hemoglobin 11.7, dropped from 13.1 several months ago. Not had any dark stools or obvious rectal bleeding. Admission Exam Per Admitting Provider General: awake, alert, no apparent distress Head: Normocephalic, atraumatic ENT: PERRL, EOMI, no pharyngeal exudate, mucous membranes moist Chest: Clear to auscultation, on room air, no adventitious breath sounds Cardiac: Regular rate and rhythm, no murmur, no JVD, normal peripheral pulses, good capillary refill Abdominal: NABS x 4 quadrants, soft, nontender to palpation, no rebound, guarding or tenderness Extremities: Normal inspection, no peripheral edema or erythema, calfs nontender to palpation Psych: Normal mood and affect Neuro: AAO x 3, strength intact bilaterally and rated 5/5, no motor deficits, speech is clear, no peripheral sensory deficits Skin: no rash or erythema Principal Dx & Hospital Course #1 = Principal Diagnosis (1) Hyponatremia: - Chronically low at 130-132 over the past 2 years but 123 on admission and is likely the cause of her near-syncope/syncope event. - 2/2 SIADH suspected. - Was started on salt tabs BID, to continue on discharge. - Serum Na 131 today, at her baseline. - Follow up outpatient with Nephrology. (2) Near syncope: - Likely due to hyponatremia. - Cardiac workup in May was negative for cardiac etiology of presyncopal events. - Neuro note from 07/24 indicates it is not seizure, CVA/TIA, or Parkinson's disease. - Most likely cause is SIADH-induced hyponatremia. - PT and OT recommended home health PT/OT for patient; patient refuses and patient's will take patient home. CM info provided if they change their minds about home services. 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 Follows with Dr. Agiular with Endocrinology for osteoporosis, hyperparathyroidism, and SIADH. - Not on any meds that could cause or contribute to SIADH. (4) Hypertension: - Continue lisinopril. - Follow up with PCP regarding hypertension. (5) Hyperparathyroidism: - Continue Calcinet. (6) Benign head tremor: - Hx vestibular schwannoma, which would not cause syncope. - No Parkinson's disease. (7) Depression: - Continue Lexapro. Plan - Discharge home with care by patient and . Follow up with Nephrology and PCP. Discharge Exam Constitutional WD/WN, vitals as above ENMT extremely hard of hearing Respiratory Lungs clear to auscultation bilaterally Cardiovascular RRR, no murmur, no edema Gastrointestinal (Abdomen) normal bowel sounds, soft, nontender, no hepatosplenomegaly Musculoskeletal no cyanosis or clubbing, extremities motor strength 5/5 Updated Medication List Medication Instructions Recorded Confirmed Type aspirin 81 mg tablet,delayed 81 mg PO DAILY 10/21/18 08/27/22 History release (Aspir-) pediatric multivitamin no.7-folic 1 tab PO DAILY 10/21/18 08/27/22 History acid 100 mcg chewable tablet (Flintstones Tab Chew) acetaminophen 500 mg tablet 500 mg PO Q6H PRN Pain 09/05/20 08/30/22 History (Tylenol Extra Strength) escitalopram oxalate 5 mg tablet 5 mg PO HS PRN Anxiety #90 tabs 01/10/22 08/30/22 Rx lisinopril 5 mg tablet 5 mg PO DAILY #90 tabs 07/11/22 08/30/22 Rx cinacalcet 30 mg tablet 30 mg PO DAILY #30 tabs 08/27/22 08/30/22 Rx sodium chloride 1 gram tablet 1 g PO BID 30 days #60 tabs 09/02/22 Rx Hospital Stay Data Consultations 08/30/22 20:06 ED Decision to Admit Stat Diagnostic Imagining Performed 08/30/22 17:28 CT head/brain wo con Stat Discharge Instructions Given to Patient (Per Discharging Provider) You were admitted to the hospital for evaluation of a near-passing out event. You were found to have a low salt level, which can make people feel woozy and pass out. You were given salt tablets for this, which you will continue on discharge. Our Physical and Occupational Therapists evaluated you and felt that you should have home health services including physical and occupational therapy. On discharge you will take a new medication called sodium chloride. You should take one pill every twelve hours (morning with breakfast, and before bed). This is to keep your salt levels under good control. You should have hospital follow up within ten days of discharge with [facility] Dunn's office. If you do not hear from their office by tomorrow with an appointment time, please call their office. You should also be seen in the near future by Nephrology. Please call their office if you do not get contacted with an appointment. Should you have worsening of symptoms, trouble breathing, or chest pain, please seek urgent medical evaluation. Total Time Total Time Spent Total Time Spent (In Minutes): 35 minutes Coding Level of Care Code D/C DAY MANAGEMENT >30 MINS Diagnoses Hyponatremia E87.1 Near syncope R55 SIADH (syndrome of inappropriate ADH production) E22.2 Hypertension I10 Hyperparathyroidism E21.3 Benign head tremor G25.0 Depression F32.9
--- NOTE | 2022-09-02 18:06 | Electrocardiogram Report ---
Test Reason : Blood Pressure : / mmHG Vent. Rate : 086 BPM Atrial Rate : 086 BPM P-R Int : 138 ms QRS Dur : 060 ms QT Int : 368 ms P-R-T Axes : 061 011 044 degrees QTc Int : 440 ms Normal sinus rhythm When compared with ECG of 24-MAY-2022 08:19, Premature ventricular complexes are no longer Present T wave inversion now evident in Anterior leads Confirmed by Boy Cruz ([id number]) on 09/02/2022 6:06:02 PM Referred By: REFERRED SELF Confirmed By:Ramsey Cruz
== END 2022-09-02 13:30 | disposition home or self-care (01) | DRG 641 ==
LOC: ED 17:18 → SUATTDRO 20:57 → 4W 20:57

== ENCOUNTER 2022-09-19 09:32 | Inpatient (IN) ==
[2022-09-19] MEDS ORDERED: ACETAMINOPHEN 1,000 MG/100 ML VIAL IV STA (10:55)
--- NOTE | 2022-09-19 11:11 | XRay Report ---
XR chest 1V portable HISTORY: 82 years-old Female weakness acute weakness COMPARISON: Chest radiograph 08/30/2022 TECHNIQUE: Semierect AP view of the chest FINDINGS: The cardiomediastinal and hilar silhouettes are within normal limits. No pneumothorax, pleural effusi on, airspace consolidation or overt pulmonary edema. Unchanged linear scarring versus atelectasis of the left lung base. Degenerative changes of the shoulders and spine. Chronic deformity of the anterio r left fourth and fifth ribs. IMPRESSION: No acute process. ACT 112: Negative or not required by law. The above report was generated using voice recognition software. It may contain grammatical, syntax o r spelling errors. Electronically signed by: Carlos Lazcano M.D. 09/19/2022 11:09 AM
[2022-09-19 11:20] LABS: Hematocrit (blood only) 33.9 % (34.1-44.9); Hemoglobin 11.6 g/dl (12.0-16.0); Mean Corpuscular Hemoglobin 29.9 pg (25.0-34.0); Mean Corpuscular Hgb Conc 34.2 g/dL (32.0-36.0); Mean Corpuscular Volume 87.4 fL (80.0-100.0); Mean Platelet Volume 10.8 fL (9.4-12.3); Platelet Count 194 K/uL (130-400); RDW Coefficient of Variation 13.5 % (11.5-14.5); RDW Standard Deviation 43.6 fL (36.4-46.3); Red Blood Count 3.88 M/uL (3.93-5.22); White Blood Count 7.76 K/ul (4.8-10.8)
[2022-09-19 11:43] LABS: Troponin I High Sensitivity 4.4 pg/ml (0-14)
[2022-09-19 11:44] LABS: Albumin Globulin Ratio 1.2 (0.9-2); Albumin Level 3.8 gm/dl (3.4-5.0); BUN Creatinine Ratio 21.1 (10-20); Bilirubin,Total 0.6 mg/dl (0.2-1.0); Calcium 8.9 mg/dl (8.5-10.1); Est GFR (African American) 91.3 ml/min; Est GFR (Non-African American) 78.8 ml/min; Globulin 3.3 gm/dl (2.5-4.0); Magnesium 1.7 mg/dl (1.7-2.4); Potassium 4.2 mmol/L (3.5-5.1); Total Protein 7.1 gm/dl (6.0-8.3)
[2022-09-19 12:03] LABS: Basophils # (auto) 0.01 K/uL (0-0.2); Basophils % (auto) 0.1 %; Immature Granulocytes # (auto) 0.04 K/uL (0.00-0.02); Immature Granulocytes % (auto) 0.5 %; Lymphocytes # (auto) 0.15 K/uL (1.2-3.4); Lymphocytes % (auto) 1.9 %; Monocytes # (auto) 0.44 K/uL (0.24-0.82); Monocytes % (auto) 5.7 %; Neutrophils # (auto) 7.12 K/uL (1.4-6.5); Neutrophils % (auto) 91.8 %
--- NOTE | 2022-09-19 12:12 | CT Scan Report ---
CT SCAN OF THE ABDOMEN AND PELVIS WITHOUT IV CONTRAST CLINICAL HISTORY: Fall. Hip and pelvic pain. COMPARISON STUDY: Pelvic radiograph dated 10/30/2018. TECHNIQUE: CT scan of the abdomen and pelvis is performed from the lung bases to the proximal femora. Images are reviewed in the axial, sagittal, and coronal planes. IV contrast was not administered for this examination. Note that the examination is suboptimal without oral and IV contrast. A dose lower ing technique was utilized adhering to the principles of ALARA. The examination is compromised by mot ion artifact. CT DOSE: 249.45 mGy.cm FINDINGS: Lung bases: The heart is normal in size and without pericardial effusion. There are coronary artery c alcifications. A hiatal hernia is noted. The lung bases are clear noting bibasilar scarring/atelectas is. Liver: The unenhanced liver is normal in size, contour, and attenuation. There is no intrahepatic eliza iary ductal dilatation. Gallbladder: Contracted versus surgically absent. This is suboptimally assessed due to motion artifac t. Spleen: Normal in size and attenuation. Pancreas: The unenhanced pancreas is grossly unremarkable but not well assessed due to motion artifac t and lack of IV contrast. Adrenal glands: Unremarkable. Kidneys: The unenhanced kidneys demonstrate mild cortical atrophy and are without hydronephrosis. The re are no renal calculi identified. A 12 mm cyst is noted on the right. Abdominal vasculature: There is advanced atherosclerotic calcification and mild ectasia of the abdomi nal aorta. Bowel: There is moderate sigmoid diverticulosis without CT evidence of acute diverticulitis. No bowel obstruction is seen. The appendix is well-visualized and normal. A right groin hernia contains a no nobstructive loop of small bowel. Peritoneum: There is no intraperitoneal free air or abdominal ascites. Lymphadenopathy: None. Pelvic viscera: The bladder is distended but otherwise normal in appearance. The uterus is surgically absent. No adnexal lesion is seen. A right groin hernia contains a segment of bowel. Skeletal structures: The skeletal structures are osteopenic. There is a comminuted fracture of the sa marah which is likely acute. This is located at the level of S3. Overlying hemorrhage is noted. There is severe chronic deformity of the right hip joint/proximal femur, with a shallow acetabulum and adva nced arthritic change. There is moderate to severe arthritic change at the left hip with avascular ne crosis and cortical collapse of the left femoral head. There is an age indeterminant inferior endplat e compression fracture of T12. Healed bilateral rib fractures are noted. No lytic or blastic lesions are seen. IMPRESSION: 1. Suboptimal examination without oral and IV contrast. The examination is also severely degraded by motion artifact. 2. There is no evidence of solid organ injury in the abdomen or pelvis on this unenhanced examination . 3. There is a comminuted fracture of the sacrum which is likely acute. Surrounding hemorrhage is note d. 4. Age indeterminate inferior endplate compression deformity of T12. Correlate for point tenderness. 5. Severe chronic deformity and arthritic change of the right hip as above. This is similar to the radiographs. 6. There is also degenerative change of the left hip with avascular necrosis and cortical collapse of the left femoral head. This has significantly progressed from the 2018 radiograph. 7. Colonic diverticulosis without CT evidence of acute diverticulitis. 8. A right groin hernia contains a nonobstructed loop of small bowel. 9. Additional findings as above. ACT 112: Negative or not required by law. Electronically signed by: Jan Perry M.D. 09/19/2022 12:10 PM
[2022-09-19 12:31] LABS: Appearance Urine Cloudy (Clear); Bacteria Urine Automated Negative (Negative); Bilirubin Urine Negative (Negative); Blood Urine Negative (Negative); Color Urine Yellow; Glucose Urine UA Negative (Negative); Ketones Urine 1+ (Negative); Leukocyte Esterase Urine Negative (Negative); Nitrite Urine Negative (Negative); RBC Urine Automated 0-4 /hpf (0-4); Specific Gravity Urine 1.016 (1.000-1.030); Urobilinogen Urine Negative (Negative); WBC Urine Automated 0 /hpf (0-5)
[2022-09-19] MEDS ORDERED: SODIUM CHLORIDE 0.9% 1000ML 500 ML IV ONE (12:51)
[2022-09-19 13:10] LABS: Protein Urine Trace (Negative)
--- NOTE | 2022-09-19 15:05 | CT Scan Report ---
CT lumbar spine wo con HISTORY: 82 years-old Female Fall, low back pain acute low back pain status post fall COMPARISON: CT abdomen and pelvis of same day, pelvis and hip radiographs 10/30/2018. TECHNIQUE: Multiple axial CT images of the lumbar spine were obtained without use of IV contrast. A d ose lowering technique was used consistent with the principals of JIMMIE. FINDINGS: Demineralized appearance of the bones with minimal spondylitic spurring. The intervertebral disc spac es are generally well maintained. Moderate to severe multilevel facet arthrosis. No acute fracture or subluxation of the lumbar spine identified. Subtle acute nondisplaced fracture of the right mid sacr um. The comminution is better appreciated on the CT abdomen and pelvis study. Small amount of presacr al edema/hemorrhage. Moderate degeneration of the menisci joints. The imaged iliac bones appear intac t. Evaluation of the central canal and neuroforamina is better assessed by MRI. There is a least mild ce ntral canal stenosis at L4-L5 with multilevel neural foraminal narrowing, moderate on the right at L4 -L5. Atherosclerosis of the aorta. Chronic deformity of the right femoral acetabular joint. 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 IMPRESSION: 1. No acute fracture or subluxation identified within the lumbar spine. 2. Acute comminuted nondisplaced sacral fracture, better evaluated on the CT abdomen and pelvis study of same day. Small amount of presacral edema. ACT 112: Negative or not required by law. The above report was generated using voice recognition software. It may contain grammatical, syntax o r spelling errors. Electronically signed by: Carlos Lazcano M.D. 09/19/2022 3:03 PM
--- NOTE | 2022-09-19 15:26 | History & Physical Report ---
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): Plan: NaCl 1g BID Fluid restrict 1500ml (6) Hyperparathyroidism: Plan: Continue cinacalcet (7) Hypertension: Plan: Monitor for hypertension off lisinopril - shlomo defer starting anything new on admission Plan VTE Prophylaxis - deferred pending stability in hemoglobin given scaral fracture as above Diet - regular, fluid restrict, easy to chew, no pork Disposition - admit to med/surg Admission and Anticipated Discharge Date Admission Date: September 19, 2022 History of Present Illness Chief Complaint: Fall Primary Care Provider: HU Oliveira Rubi Arzate is an 82 year old female who presents to the ER with a fall and generalized weakness. Patient is deaf and communication difficult but she uses an ipad to dictate what I am saying to her. She was recently admitted for generalized weakness from August 30 - September 02, 2022 due to generalized weakness and presyncope. Suspected due to acute on chronic hyponatremia. On this occasion she was so weak her had to help her up in bed. She managed to stand with the walker and finally got to the bathroom. She left the walker along the vanity and made her way around to get on the commode when she fell back wards. Reportedly did not hit her head or lose consciousness. Although presyncope was mentioned in EMS notes the patient denies any prodromal symptoms. She does note having a headache yesterday with nasal congestion but that has completely cleared up. She has a chronic cough. She has had significant back pain since the fall and was reportedly hypoxic en route to the hospital with O2 sats 68 % on room air. No head, neck, upper extremity or thoracic back pain. Reportedly the patient was presyncopal by EMS. No hitting her head or loss of consciousness. Back pain since the fall. O2 sats 68% on room air en route. In the ER CT abdo/pelvis showed comminuted fracture of the sacrum which is likely acute. She was referred to medicine for admission and ongoing mangement of this. Allergies Allergy/AdvReac Type Severity Reaction Status Date / Time Cephalosporins Allergy Intermediate RASH Verified 09/19/22 14:57 cefazolin Allergy Unknown UNKNOWN Verified 09/19/22 14:57 donepezil [From Aricept] Allergy Unknown Unknown Verified 09/19/22 14:57 adhesive tape Allergy Unknown Verified 09/19/22 14:57 amlodipine [From Norvasc] Allergy Edema Verified 09/19/22 14:57 Sulfa (Sulfonamide Allergy Unknown Verified 09/19/22 14:57 Antibiotics) Home Medications Medication Instructions Recorded Confirmed Type aspirin 81 mg tablet,delayed 81 mg PO DAILY 10/21/18 09/19/22 History release (Aspir-) pediatric multivitamin no.7-folic 1 tab PO DAILY 10/21/18 09/19/22 History acid 100 mcg chewable tablet (Flintstones Tab Chew) acetaminophen 500 mg tablet 500 mg PO Q6H PRN Pain 09/05/20 09/19/22 History (Tylenol Extra Strength) lisinopril 5 mg tablet 5 mg PO DAILY #90 tabs 07/11/22 09/19/22 Rx cinacalcet 30 mg tablet 30 mg PO DAILY #30 tabs 08/27/22 09/19/22 Rx sodium chloride 1 gram tablet 1 g PO BID 30 days #60 tabs 09/02/22 09/19/22 Rx escitalopram oxalate 5 mg tablet 5 mg PO HS 09/19/22 09/19/22 History Past Med/Surg History Medical History Acoustic neuroma Depression Gait disturbance Hearing loss Hx of cataract Hypercalciuria Hypertension Hypertensive urgency Hypokalemia Osteoporosis SIADH (syndrome of inappropriate ADH production) Vitamin D deficiency Surgical History History of craniotomy excision of acoustic neuroma Hx of cataract surgery Hx of cholecystectomy Hx of hysterectomy Hx of total knee replacement Family History Aunt Breast cancer Brother Colorectal cancer Heart problem Mother Heart problem Father Heart problem Sister Multiple sclerosis Other Family history non-contributory Denies family history of Ovarian cancer Prostate cancer Myocardial infarction Social History Smoking Status: Never smoker Second Hand Exposure: No; Do You Dip or Chew Tobacco: No; Hx Alcohol Use: No Hx Substance Use: No Preferred Language: Bengali Communication Ability: Impaired Communication Ability Comment: pt is deaf in right ear, very little hearing left ear Visual Impairment: No Limitations Hearing Ability: Hard of Hearing Dog Food Dough Mixer Required: No Beliefs That Will Affect Care: None marital status: Current Living Situation: Spouse current occupational status: retired How many Children do You have: 2 Other Information That Helps Us Care for You: No Feels Safe at Home: Yes Safety Concerns: Feels Safe At This Time Childhood Exposure to Second-Hand Smoke: No caffeine: Yes Dental Care, Regularly: Yes Physical Activity Frequency: Does not Exercise Seatbelt Use: always Sunscreen Use: No Assistive Devices: Glasses, Hearing Aid - Left and Walker Review of Systems Review of Systems: All systems reviewed & are unremarkable except as noted in HPI & below Physical Exam Constitutional: well developed and + frail appearing; + not well nourished and no acute distress Eyes: PERRL, conjunctivae normal, anicteric sclerae Neck: trachea midline, no thyromegaly Respiratory: normal respiratory effort, lungs clear to auscultation Auscultation: no crackles and no wheezes Cardiovascular: Rate/Rhythm: regular rate and regular rhythm Heart Sounds: + murmur (loudest at apex) Extremities: normal capillary refill; no calf tenderness and no pedal edema Gastrointestinal (Abdomen): normal bowel sounds, soft, nontender, no hepatosplenomegaly Musculoskeletal: no cyanosis or clubbing, extremities motor strength 5/5 Spine: + lumbar spinal tenderness (lower) and + sacral tenderness; no cervical spinal tenderness and no thoracic spinal tenderness Extremities: strength 5/5 throughout Skin: no rashes, warm and dry Neurologic: moves all extremities and awake; no focal motor deficits (no lateralizing deficit) and not confused Motor/Sensory: no tremor and no pronator drift Coordination: normal qdouck-kg-oivu test Psychiatric: A+Ox3, euthymic affect Results & Data Results & Data ([facility]) Vital Signs (Past 12 Hours) Vital Signs Temp Pulse Pulse Resp BP BP Pulse Ox 10/20/22 15:00 81 23 145/66 H 98 09/19/22 14:00 80 20 135/55 L 100 09/19/22 13:42 82 20 142/53 H 99 09/19/22 12:00 84 21 127/52 L 100 09/19/22 12:09 09/19/22 11:56 83 20 100 09/19/22 11:56 82 20 134/59 L 100 09/19/22 11:56 100 09/19/22 11:00 85 19 126/61 97 09/19/22 10:18 89 L 09/19/22 10:15 86 16 141/66 H 94 09/19/22 10:05 36.7 C 93 H 18 156/65 H 92 O2 Del Method O2 Flow Rate 09/19/22 15:00 2 09/19/22 14:00 Nasal Cannula 2 09/19/22 13:42 Nasal Cannula 2 09/19/22 12:00 Nasal Cannula 2 09/19/22 12:09 Nasal Cannula 2 09/19/22 11:56 Room Air 09/19/22 11:56 Room Air 09/19/22 11:56 Room Air 09/19/22 11:00 09/19/22 10:18 Room Air 09/19/22 10:15 Room Air 09/19/22 10:05 Room Air Laboratory Results Abnormal lab results 09/19/22 09/19/22 09/19/22 Range/Units 09:50 09:50 12:04 RBC 3.88 L (3.93-5.22) M/uL Hgb 11.6 L (12.0-16.0) g/dl Hct 33.9 L (34.1-44.9) % Neut # (Auto) 7.12 H (1.4-6.5) K/uL Lymph # (Auto) 0.15 L (1.2-3.4) K/uL Immature Gran # (Auto) 0.04 H (0.00-0.02) K/uL Sodium 128 L (136-145) mmol/L Chloride 93 L (98-107) mmol/L BUN/Creatinine Ratio 21.1 H (10-20) Urine Appearance Cloudy A (Clear) Urine pH 8.0 H (4.5-7.5) Urine Protein Trace H (Negative) Urine Ketones 1+ H (Negative) U Epithel Cells (Auto) 5-10 H (0-5) /lpf Diagnostic Findings XR chest 1V portable HISTORY: 82 years-old Female weakness acute weakness COMPARISON: Chest radiograph 08/30/2022 TECHNIQUE: Semierect AP view of the chest FINDINGS: The cardiomediastinal and hilar silhouettes are within normal limits. No pneumothorax, pleural effusion, airspace consolidation or overt pulmonary edema. Unchanged linear scarring versus atelectasis of the left lung base. Degenerative changes of the shoulders and spine. Chronic deformity of the anterior left fourth and fifth ribs. IMPRESSION: No acute process. CT SCAN OF THE ABDOMEN AND PELVIS WITHOUT IV CONTRAST CLINICAL HISTORY: Fall. Hip and pelvic pain. COMPARISON STUDY: Pelvic radiograph dated 10/30/2018. TECHNIQUE: CT scan of the abdomen and pelvis is performed from the lung bases to the proximal femora. Images are reviewed in the axial, sagittal, and coronal gladys zora. IV contrast was not administered for this examination. Note that the examination is suboptimal without oral and IV contrast. A dose lowering technique was utilized adhering to the principles of ALARA. The examination is compromised by motion artifact. CT DOSE: 249.45 mGy.cm FINDINGS: Lung bases: The heart is normal in size and without pericardial effusion. There are coronary artery calcifications. A hiatal hernia is noted. The lung bases are clear noting bibasilar scarring/atelectasis. Liver: The unenhanced liver is normal in size, contour, and attenuation. There is no intrahepatic biliary ductal dilatation. Gallbladder: Contracted versus surgically absent. This is suboptimally assessed due to motion artifact. Spleen: Normal in size and attenuation. Pancreas: The unenhanced pancreas is grossly unremarkable but not well assessed due to motion artifact and lack of IV contrast. Adrenal glands: Unremarkable. Kidneys: The unenhanced kidneys demonstrate mild cortical atrophy and are without hydronephrosis. There are no renal calculi identified. A 12 mm cyst is noted on the right. Abdominal vasculature: There is advanced atherosclerotic calcification and mild ectasia of the abdominal aorta. Bowel: There is moderate sigmoid diverticulosis without CT evidence of acute diverticulitis. No bowel obstruction is seen. The appendix is well-visualized and normal. A right groin hernia contains a nonobstructive loop of small bowel. Peritoneum: There is no intraperitoneal free air or abdominal ascites. Lymphadenopathy: None. Pelvic viscera: The bladder is distended but otherwise normal in appearance. The uterus is surgically absent. No adnexal lesion is seen. A right groin hernia contains a segment of bowel. Skeletal structures: The skeletal structures are osteopenic. There is a comminuted fracture of the sacrum which is likely acute. This is located at the level of S3. Overlying hemorrhage is noted. There is severe chronic deformity of the right hip joint/proximal femur, with a shallow acetabulum and advanced arthritic change. 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 There is an age indeterminant inferior endplate compression fracture of T12. Healed bilateral rib fractures are noted. No lytic or blastic lesions are seen. IMPRESSION: 1. Suboptimal examination without oral and IV contrast. The examination is also severely degraded by motion artifact. 2. There is no evidence of solid organ injury in the abdomen or pelvis on this unenhanced examination. 3. There is a comminuted fracture of the sacrum which is likely acute. Surrounding hemorrhage is noted. 4. Age indeterminate inferior endplate compression deformity of T12. Correlate for point tenderness. 5. Severe chronic deformity and arthritic change of the right hip as above. This is similar to the 2018 radiographs. 6. There is also degenerative change of the left hip with avascular necrosis and cortical collapse of the left femoral head. This has significantly progressed from the 2018 radiograph. 7. Colonic diverticulosis without CT evidence of acute diverticulitis. 8. A right groin hernia contains a nonobstructed loop of small bowel. 9. Additional findings as above. CT lumbar spine wo con HISTORY: 82 years-old Female Fall, low back pain acute low back pain status post fall COMPARISON: CT abdomen and pelvis of same day, pelvis and hip radiographs 10/30/2018. TECHNIQUE: Multiple axial CT images of the lumbar spine were obtained without use of IV contrast. A dose lowering technique was used consistent with the principals of ALARA. FINDINGS: Demineralized appearance of the bones with minimal spondylitic spurring. The intervertebral disc spaces are generally well maintained. Moderate to severe multilevel facet arthrosis. No acute fracture or subluxation of the lumbar spine identified. Subtle acute nondisplaced fracture of the right mid sacrum. The comminution is better appreciated on the CT abdomen and pelvis study. Small amount of presacral edema/hemorrhage. Moderate degeneration of the menisci joints. The imaged iliac bones appear intact. Evaluation of the central canal and neuroforamina is better assessed by MRI. There is a least mild central canal stenosis at L4-L5 with multilevel neural foraminal narrowing, moderate on the right at L4-L5. Atherosclerosis of the aorta. Chronic deformity of the right femoral acetabular joint. Avascular necrosis of the left femoral head seen on the oncology rep localizer images. IMPRESSION: 1. No acute fracture or subluxation identified within the lumbar spine. 2. Acute comminuted nondisplaced sacral fracture, better evaluated on the CT abdomen and pelvis study of same day. Small amount of presacral edema. Medications Administered ER medications given: Acetaminophen 1 g IV NSS 500 mL bolus ECG Indication: other (fall) Rate (beats per minute): 88 Rhythm: normal sinus Comparison ECG Date: from (August 30, 2022) Change: no significant change Code Status & VTE Plan Code Status Full VTE Prophylaxis Plan VTE Prophylaxis will be ordered: Yes PG Care Time/CCT Total # of Minutes Spent Total Time Spent with Patient: Total time spent is greater than 50% in coordination of care (as documented) at patient's floor/unit and/or counseling patient: Coding Level of Care Code 27116 Initial Inpt Care Lvl 2 Diagnoses Sacral fracture S32.10XA Hearing loss H91.90 Acute hyponatremia E87.1 NF2 (neurofibromatosis 2) Q85.02 SIADH (syndrome of inappropriate ADH production) E22.2 Hyperparathyroidism E21.3 Hypertension I10
--- NOTE | 2022-09-19 15:32 | Electrocardiogram Report ---
Test Reason : Blood Pressure : / mmHG Vent. Rate : 088 BPM Atrial Rate : 088 BPM P-R Int : 124 ms QRS Dur : 064 ms QT Int : 352 ms P-R-T Axes : 043 019 053 degrees QTc Int : 425 ms Poor data quality, interpretation may be adversely affected Normal sinus rhythm Normal ECG When compared with ECG of 30-AUG-2022 18:45, No significant change Confirmed by Britton Steen ([id number]) on 09/19/2022 3:32:11 PM Referred By: REFERRED SELF Confirmed By:Britton Steen
--- NOTE | 2022-09-19 17:41 | Emergency Department Note ---
Impression & Plan Closed sacral fracture, Hyponatremia, Leg weakness, bilateral, T12 compression fracture ED Provider Note CHIEF COMPLAINT: Generalized weakness HISTORY OF PRESENT ILLNESS: This 82-year-old female patient presents to the emergency department with complaints of generalized weakness and a fall. Patient's states she does not hear well and they use an iPad to help translate. The patient was apparently walking into the bathroom with her when she lost her footing. The walker was between the 2 of them and he was unable to catch her. She fell and is now complaining of low back pain. states he was able to get her into the bed and he believes she may have had a syncopal episode "briefly." The patient did not hit her head or pass out at the time of the fall. She did not vomit. states she is generally unstable on her feet but over the last 2 days has become more unstable. She does have a bad right hip chronically per . REVIEW OF SYSTEMS: A review of systems was performed with positives and pertinent negatives listed in the history of present illness. 10 systems were reviewed and are otherwise negative. ALLERGIES: see below MEDICATIONS: see below PMH: see below SOCIAL HISTORY: see below DDx:Fracture, dislocation, contusion, intra-abdominal, pneumothorax, intrathoracic, intracranial, neurologic, compartment syndrome, rhabdomyolysis, as well as other pathologies. PHYSICAL EXAM: Vital signs reviewed. General: Chronically ill-appearing 82-year-old female, in significant discomfort. HEENT: No scleral icterus, PERRLA, neck supple. Atraumatic. Cardiovascular: Regular rate and rhythm, no extra sounds. Pulmonary: Clear to auscultation bilaterally, normal work of breathing. Abdomen: Soft, nontender, nondistended, positive bowel sounds. Musculoskeletal: Atraumatic, no peripheral edema. Tender to palpation over the low lumbar spine. Tender to pelvic rocking. Pain with flexion of the right hip. Neurologic: Patient awake alert and answers questions appropriately but speech is difficult to interpret. Patient is hard of hearing and reads on the iPad, Skin: Warm, dry, no rash EMERGENCY DEPARTMENT COURSE/MDM: This patient was evaluated and appeared to be in no significant distress but in some discomfort. IV access was obtained and laboratory work was drawn. The patient was placed on the quality assurance monitor final and noted to be in a normal sinus rhythm. The patient was medicated with IV Tylenol and hydrated with normal saline solution. CT scan of the lumbar spine and pelvis was performed and reveals evidence of a T12 compression fracture and acute comminuted fracture of the sacrum with some bleeding. There is chronic changes noted of both the right and left hips. No acute fracture. On my reevaluation of the patient, she was sleeping comfortably. Family was not at the bedside. Case was discussed with the hospitalist service and patient will be admitted for further management. MONITORING: An order for cardiac monitoring was placed and the patient is noted to be in a normal sinus rhythm at 83 beats per minute. RADIOLOGY: See below EKG: Normal sinus rhythm at [address] segments. No PVC, no PAC. QTc is 425. DISPOSITION: Admission Past Med/Surg History Medical History Acoustic neuroma Depression Gait disturbance Hearing loss Hx of cataract Hypercalciuria Hypertension Hypertensive urgency Hypokalemia Osteoporosis SIADH (syndrome of inappropriate ADH production) Vitamin D deficiency Surgical History History of craniotomy excision of acoustic neuroma Hx of cataract surgery Hx of cholecystectomy Hx of hysterectomy Hx of total knee replacement Family History Aunt Breast cancer Brother Colorectal cancer Heart problem Mother Heart problem Father Heart problem Sister Multiple sclerosis Other Family history non-contributory Denies family history of Ovarian cancer Prostate cancer Myocardial infarction Social History Smoking Status: Never smoker Second Hand Exposure: No; Hx Alcohol Use: No Hx Substance Use: No Preferred Language: Greenlandic Communication Ability: Effective Visual Impairment: No Limitations Hearing Ability: Hard of Hearing Mottler Machine Feeder Required: No Beliefs That Will Affect Care: None marital status: Current Living Situation: Spouse current occupational status: retired How many Children do You have: 2 Feels Safe at Home: Yes Childhood Exposure to Second-Hand Smoke: No caffeine: Yes Dental Care, Regularly: Yes Physical Activity Frequency: Does not Exercise Seatbelt Use: always Sunscreen Use: No Assistive Devices: Walker Allergies Allergies Allergy/AdvReac Type Severity Reaction Status Date / Time Cephalosporins Allergy Intermediate RASH Verified 09/19/22 14:57 cefazolin Allergy Unknown UNKNOWN Verified 09/19/22 14:57 donepezil [From Aricept] Allergy Unknown Unknown Verified 09/19/22 14:57 adhesive tape Allergy Unknown Verified 09/19/22 14:57 amlodipine [From Norvasc] Allergy Edema Verified 09/19/22 14:57 Sulfa (Sulfonamide Allergy Unknown Verified 09/19/22 14:57 Antibiotics) Home Meds Home Medications Medication Instructions Recorded Confirmed aspirin 81 mg tablet,delayed 81 mg PO DAILY 10/21/18 09/19/22 release (Aspir-) pediatric multivitamin no.7-folic 1 tab PO DAILY 10/21/18 09/19/22 acid 100 mcg chewable tablet (Flintstones Tab Chew) acetaminophen 500 mg tablet 500 mg PO Q6H PRN Pain 09/05/20 09/19/22 (Tylenol Extra Strength) escitalopram oxalate 5 mg tablet 5 mg PO HS 09/19/22 09/19/22 Previous Rx's Medication Instructions Recorded lisinopril 5 mg tablet 5 mg PO DAILY #90 tabs 07/11/22 cinacalcet 30 mg tablet 30 mg PO DAILY #30 tabs 08/27/22 sodium chloride 1 gram tablet 1 g PO BID 30 days #60 tabs 09/02/22 Results & Data (ED) Vital Signs Vital Signs - 24 hr 09/19/22 10:05 09/19/22 10:15 09/19/22 10:18 Temperature 36.7 C Temperature Source Oral Pulse Rate 93 H 86 Pulse Rate [Apical] Pulse Rate from SpO2 Sensor Pulse Rhythm Regular Pulse Strength Normal Respiratory Rate 18 16 Respiratory Effort / Characteristics Non-Labored Spontaneous Respiratory Depth Normal Respiratory Pattern Regular Blood Pressure 156/65 H 141/66 H Blood Pressure [Right Arm] Blood Pressure Mean 95 91 Blood Pressure Mean [Right Arm] Pulse Oximetry 92 94 89 L Oxygen Delivery Method Room Air Room Air Room Air Oxygen Flow Rate Sepsis Recent Fever Within 48 Hours No Sepsis New/Unexplained Change in Mental Status No Sepsis Action Taken by Nursing No Action Required 09/19/22 11:00 09/19/22 11:56 09/19/22 11:56 Temperature Temperature Source Pulse Rate 85 Pulse Rate [Apical] 82 Pulse Rate from SpO2 Sensor 84 Pulse Rhythm Pulse Strength Respiratory Rate 19 20 Respiratory Effort / Characteristics Non-Labored Respiratory Depth Normal Respiratory Pattern Blood Pressure 126/61 Blood Pressure [Right Arm] 134/59 L Blood Pressure Mean 82 Blood Pressure Mean [Right Arm] 84 Pulse Oximetry 97 100 100 Oxygen Delivery Method Room Air Room Air Oxygen Flow Rate Sepsis Recent Fever Within 48 Hours Sepsis New/Unexplained Change in Mental Status Sepsis Action Taken by Nursing 09/19/22 11:56 09/19/22 12:09 09/19/22 12:00 Temperature Temperature Source Pulse Rate 83 84 Pulse Rate [Apical] Pulse Rate from SpO2 Sensor 84 Pulse Rhythm Regular Pulse Strength Respiratory Rate 20 21 Respiratory Effort / Characteristics Respiratory Depth Respiratory Pattern Blood Pressure 127/52 L Blood Pressure [Right Arm] Blood Pressure Mean 77 Blood Pressure Mean [Right Arm] Pulse Oximetry 100 100 Oxygen Delivery Method Room Air Nasal Cannula Nasal Cannula Oxygen Flow Rate 2 2 Sepsis Recent Fever Within 48 Hours Sepsis New/Unexplained Change in Mental Status Sepsis Action Taken by Nursing 09/19/22 13:42 09/19/22 14:00 Temperature Temperature Source Pulse Rate 80 Pulse Rate [Apical] 82 Pulse Rate from SpO2 Sensor 78 Pulse Rhythm Pulse Strength Respiratory Rate 20 20 Respiratory Effort / Characteristics Respiratory Depth Respiratory Pattern Blood Pressure 135/55 L Blood Pressure [Right Arm] 142/53 H Blood Pressure Mean 81 Blood Pressure Mean [Right Arm] 82 Pulse Oximetry 99 100 Oxygen Delivery Method Nasal Cannula Nasal Cannula Oxygen Flow Rate 2 2 Sepsis Recent Fever Within 48 Hours Sepsis New/Unexplained Change in Mental Status Sepsis Action Taken by Jail Medications Current Medication List: was personally reviewed by me Laboratory Data Attestation: I reviewed the patient's lab results. Result diagrams: 09/19/22 09:50 09/19/22 09:50 Lab Results 09/19/22 09/19/22 09/19/22 Range/Units 09:50 09:50 09:50 WBC 7.76 (4.8-10.8) K/ul RBC 3.88 L (3.93-5.22) M/uL Hgb 11.6 L (12.0-16.0) g/dl Hct 33.9 L (34.1-44.9) % MCV 87.4 (80.0-100.0) fL MCH 29.9 (25.0-34.0) pg MCHC 34.2 (32.0-36.0) g/dL RDW Std Deviation 43.6 (36.4-46.3) fL RDW Coeff of Imssy 13.5 (11.5-14.5) % Plt Count 194 (130-400) K/uL MPV 10.8 (9.4-12.3) fL Immature Gran % (Auto) 0.5 % Neut % (Auto) 91.8 % Lymph % (Auto) 1.9 % Kidder % (Auto) 5.7 % Eos % (Auto) 0.0 % Baso % (Auto) 0.1 % Neut # (Auto) 7.12 H (1.4-6.5) K/uL Lymph # (Auto) 0.15 L (1.2-3.4) K/uL Kidder # (Auto) 0.44 (0.24-0.82) K/uL Eos # (Auto) 0.00 (0-0.50) K/uL Baso # (Auto) 0.01 (0-0.2) K/uL Immature Gran # (Auto) 0.04 H (0.00-0.02) K/uL Sodium 128 L (136-145) mmol/L Potassium 4.2 (3.5-5.1) mmol/L Chloride 93 L (98-107) mmol/L Carbon Dioxide 26 (21-32) mmol/L Anion Gap 9 (3-11) BUN 15 (6-23) mg/dl Creatinine 0.71 (0.6-1.2) mg/dl Est Cr Clr Drug Dosing 46.0 ml/min Est GFR ( Amer) 91.3 ml/min Est GFR (Non-Af Amer) 78.8 ml/min BUN/Creatinine Ratio 21.1 H (10-20) Glucose 97 (70-99(Fasting)) mg/dl Calcium 8.9 (8.5-10.1) mg/dl Magnesium 1.7 (1.7-2.4) mg/dl Total Bilirubin 0.6 (0.2-1.0) mg/dl AST 33 (13-39) U/L ALT 24 (7-52) U/L Alkaline Phosphatase 68 (34-104) U/L Troponin I High Sens 4.4 (0-14) pg/ml Total Protein 7.1 (6.0-8.3) gm/dl Albumin 3.8 (3.4-5.0) gm/dl Globulin 3.3 (2.5-4.0) gm/dl Albumin/Globulin Ratio 1.2 (0.9-2) TSH 1.525 (0.300-4.500) uIu/ml Urine Color Urine Appearance (Clear) Urine pH (4.5-7.5) Ur Specific [place] (1.000-1.030) Urine Protein (Negative) Urine Glucose (UA) (Negative) Urine Ketones (Negative) Urine Blood (Negative) Urine Nitrite (Negative) Urine Bilirubin (Negative) Urine Urobilinogen (Negative) Ur Leukocyte Esterase (Negative) Urine WBC (Auto) (0-5) /hpf Urine RBC (Auto) (0-4) /hpf U Hyaline Cast (Auto) (0-5) /lpf U Epithel Cells (Auto) (0-5) /lpf Urine Bacteria (Auto) (Negative) SARS-CoV-2, RNA, NAAT (NEGATIVE) 09/19/22 09/19/22 Range/Units 11:12 12:04 WBC (4.8-10.8) K/ul RBC (3.93-5.22) M/uL Hgb (12.0-16.0) g/dl Hct (34.1-44.9) % MCV (80.0-100.0) fL MCH (25.0-34.0) pg MCHC (32.0-36.0) g/dL RDW Std Deviation (36.4-46.3) fL RDW Coeff of Missy (11.5-14.5) % Plt Count (130-400) K/uL MPV (9.4-12.3) fL Immature Gran % (Auto) % Neut % (Auto) % Lymph % (Auto) % Kidder % (Auto) % Eos % (Auto) % Baso % (Auto) % Neut # (Auto) (1.4-6.5) K/uL Lymph # (Auto) (1.2-3.4) K/uL Kidder # (Auto) (0.24-0.82) K/uL Eos # (Auto) (0-0.50) K/uL Baso # (Auto) (0-0.2) K/uL Immature Gran # (Auto) (0.00-0.02) K/uL Sodium (136-145) mmol/L Potassium (3.5-5.1) mmol/L Chloride (98-107) mmol/L Carbon Dioxide (21-32) mmol/L Anion Gap (3-11) BUN (6-23) mg/dl Creatinine (0.6-1.2) mg/dl Est Cr Clr Drug Dosing ml/min Est GFR ( Amer) ml/min Est GFR (Non-Af Amer) ml/min BUN/Creatinine Ratio (10-20) Glucose (70-99(Fasting)) mg/dl Calcium (8.5-10.1) mg/dl Magnesium (1.7-2.4) mg/dl Total Bilirubin (0.2-1.0) mg/dl AST (13-39) U/L ALT (7-52) U/L Alkaline Phosphatase (34-104) U/L Troponin I High Sens (0-14) pg/ml Total Protein (6.0-8.3) gm/dl Albumin (3.4-5.0) gm/dl Globulin (2.5-4.0) gm/dl Albumin/Globulin Ratio (0.9-2) TSH (0.300-4.500) uIu/ml Urine Color Yellow Urine Appearance Cloudy A (Clear) Urine pH 8.0 H (4.5-7.5) Ur Specific [place] 1.016 (1.000-1.030) Urine Protein Trace H (Negative) Urine Glucose (UA) Negative (Negative) Urine Ketones 1+ H (Negative) Urine Blood Negative (Negative) Urine Nitrite Negative (Negative) Urine Bilirubin Negative (Negative) Urine Urobilinogen Negative (Negative) Ur Leukocyte Esterase Negative (Negative) Urine WBC (Auto) 0 (0-5) /hpf Urine RBC (Auto) 0-4 (0-4) /hpf U Hyaline Cast (Auto) 1-5 (0-5) /lpf U Epithel Cells (Auto) 5-10 H (0-5) /lpf Urine Bacteria (Auto) Negative (Negative) SARS-CoV-2, RNA, NAAT NEGATIVE (NEGATIVE) Administered Medications Discontinued Medications Acetaminophen (Ofirmev) 1,000 mg in 100 mls @ 400 mls/hr IV NOW STA Stop: 09/19/22 11:09 Last Infusion: 09/19/22 12:36 Dose: 0 mls/hr Documented By: Admin: 09/19/22 12:17 Dose: 400 mls/hr Documented By: JAZZ Sodium Chloride (Nss 1000ml) 500 mls @ 999 mls/hr IV .Q31M ONE Stop: 09/19/22 13:21 Last Infusion: 09/19/22 13:36 Dose: 0 mls/hr Documented By: JO-ANN Admin: 09/19/22 13:04 Dose: 999 mls/hr Documented By: JAZZ Imaging Data Radiologist's Impression: Chest X-Ray 09/19/22 10:53 XR chest 1V portable HISTORY: 82 years-old Female weakness acute weakness COMPARISON: Chest radiograph 08/30/2022 TECHNIQUE: Semierect AP view of the chest FINDINGS: The cardiomediastinal and hilar silhouettes are within normal limits. No pneumothorax, pleural effusion, airspace consolidation or overt pulmonary edema. Unchanged linear scarring versus atelectasis of the left lung base. Degenerative changes of the shoulders and spine. Chronic deformity of the anterior left fourth and fifth ribs. IMPRESSION: No acute process. ACT 112: Negative or not required by law. The above report was generated using voice recognition software. It may contain grammatical, syntax or spelling errors. Electronically signed by: Carlos Lazcano M.D. 09/19/2022 11:09 AM Abdomen/Pelvis CT 09/19/22 10:54 CT SCAN OF THE ABDOMEN AND PELVIS WITHOUT IV CONTRAST CLINICAL HISTORY: Fall. Hip and pelvic pain. COMPARISON STUDY: Pelvic radiograph dated 10/30/2018. TECHNIQUE: CT scan of the abdomen and pelvis is performed from the lung bases to the proximal femora. Images are reviewed in the axial, sagittal, and coronal planes. IV contrast was not administered for this examination. Note that the examination is suboptimal without oral and IV contrast. A dose lowering technique was utilized adhering to the principles of ALARA. The examination is compromised by motion artifact. CT DOSE: 249.45 mGy.cm FINDINGS: Lung bases: The heart is normal in size and without pericardial effusion. There are coronary artery calcifications. A hiatal hernia is noted. The lung bases are clear noting bibasilar scarring/atelectasis. Liver: The unenhanced liver is normal in size, contour, and attenuation. There is no intrahepatic biliary ductal dilatation. Gallbladder: Contracted versus surgically absent. This is suboptimally assessed due to motion artifact. Spleen: Normal in size and attenuation. Pancreas: The unenhanced pancreas is grossly unremarkable but not well assessed due to motion artifact and lack of IV contrast. Adrenal glands: Unremarkable. Kidneys: The unenhanced kidneys demonstrate mild cortical atrophy and are without hydronephrosis. There are no renal calculi identified. A 12 mm cyst is noted on the right. Abdominal vasculature: There is advanced atherosclerotic calcification and mild ectasia of the abdominal aorta. Bowel: There is moderate sigmoid diverticulosis without CT evidence of acute diverticulitis. No bowel obstruction is seen. The appendix is well-visualized and normal. A right groin hernia contains a nonobstructive loop of small bowel. Peritoneum: There is no intraperitoneal free air or abdominal ascites. Lymphadenopathy: None. Pelvic viscera: The bladder is distended but otherwise normal in appearance. The uterus is surgically absent. No adnexal lesion is seen. A right groin hernia contains a segment of bowel. Skeletal structures: The skeletal structures are osteopenic. There is a comminuted fracture of the sacrum which is likely acute. This is located at the level of S3. Overlying hemorrhage is noted. There is severe chronic deformity of the right hip joint/proximal femur, with a shallow acetabulum and advanced arthritic change. 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 There is an age indeterminant inferior endplate compression fracture of T12. Healed bilateral rib fractures are noted. No lytic or blastic lesions are seen. IMPRESSION: 1. Suboptimal examination without oral and IV contrast. The examination is also severely degraded by motion artifact. 2. There is no evidence of solid organ injury in the abdomen or pelvis on this unenhanced examination. 3. There is a comminuted fracture of the sacrum which is likely acute. Surrounding hemorrhage is noted. 4. Age indeterminate inferior endplate compression deformity of T12. Correlate for point tenderness. 5. Severe chronic deformity and arthritic change of the right hip as above. This is similar to the 2018 radiographs. 6. There is also degenerative change of the left hip with avascular necrosis and cortical collapse of the left femoral head. This has significantly progressed from the 2018 radiograph. 7. Colonic diverticulosis without CT evidence of acute diverticulitis. 8. A right groin hernia contains a nonobstructed loop of small bowel. 9. Additional findings as above. ACT 112: Negative or not required by law. Electronically signed by: Jan Perry M.D. 09/19/2022 12:[address] 09/19/22 10:54 CT lumbar spine wo con HISTORY: 82 years-old Female Fall, low back pain acute low back pain status post fall COMPARISON: CT abdomen and pelvis of same day, pelvis and hip radiographs 10/30/2018. TECHNIQUE: Multiple axial CT images of the lumbar spine were obtained without use of IV contrast. A dose lowering technique was used consistent with the principals of ALARA. FINDINGS: Demineralized appearance of the bones with minimal spondylitic spurring. The intervertebral disc spaces are generally well maintained. Moderate to severe multilevel facet arthrosis. No acute fracture or subluxation of the lumbar spine identified. Subtle acute nondisplaced fracture of the right mid sacrum. The comminution is better appreciated on the CT abdomen and pelvis study. Small amount of presacral edema/hemorrhage. Moderate degeneration of the menisci joints. The imaged iliac bones appear intact. Evaluation of the central canal and neuroforamina is better assessed by MRI. There is a least mild central canal stenosis at L4-L5 with multilevel neural foraminal narrowing, moderate on the right at L4-L5. Atherosclerosis of the aorta. Chronic deformity of the right femoral acetabular joint. Avascular necrosis of the left femoral head seen on the calibration engineer localizer images. IMPRESSION: 1. No acute fracture or subluxation identified within the lumbar spine. 2. Acute comminuted nondisplaced sacral fracture, better evaluated on the CT abdomen and pelvis study of same day. Small amount of presacral edema. ACT 112: Negative or not required by law. The above report was generated using voice recognition software. It may contain grammatical, syntax or spelling errors. Electronically signed by: Carlos Lazcano M.D. 09/19/2022 3:03 PM Blood Pressure Blood Pressure Findings: Elevated blood pressure Blood Pressure Disposition: further management by hospitalist Discharge Plan Visit Data Chief Complaint: Weakness Stated Complaint: WEAKNESS, FALL, BACK PAIN, ED Provider: Corina Carreon Discharge Problem: Closed sacral fracture, Hyponatremia, Leg weakness, bilateral, T12 compression fracture Discharge Instructions Interventions: ED Discharge Assessment Last Done: 09/19/22 16:13
[2022-09-19] MEDS: ESCITALOPRAM OXALATE 10 MG TAB PO SCH (22:08)
[2022-09-19] MEDS: ACETAMINOPHEN 500 MG TAB PO SCH (22:08)
[2022-09-19] MEDS: SODIUM CHLORIDE 1 GM TABLET PO SCH ×2 (22:08→22:10)
[2022-09-20] MEDS: ACETAMINOPHEN 500 MG TAB PO SCH ×3 (07:52→20:05)
[2022-09-20] MEDS: SODIUM CHLORIDE 1 GM TABLET PO SCH ×2 (07:53→20:07)
[2022-09-20] MEDS: MULTIVITAMIN CHEWABLE TAB PO SCH (07:53)
[2022-09-20] MEDS: ASPIRIN 81 MG ECTAB PO SCH (07:54)
[2022-09-20] MEDS: CINACALCET HCL 30 MG TAB PO SCH (07:54)
[2022-09-20 08:21] LABS: Hematocrit (blood only) 31.1 % (34.1-44.9); Hemoglobin 10.6 g/dl (12.0-16.0); Mean Corpuscular Hemoglobin 29.5 pg (25.0-34.0); Mean Corpuscular Hgb Conc 34.1 g/dL (32.0-36.0); Mean Corpuscular Volume 86.6 fL (80.0-100.0); Mean Platelet Volume 10.2 fL (9.4-12.3); Platelet Count 146 K/uL (130-400); RDW Coefficient of Variation 13.6 % (11.5-14.5); RDW Standard Deviation 42.9 fL (36.4-46.3); Red Blood Count 3.59 M/uL (3.93-5.22)
[2022-09-20 08:54] LABS: BUN Creatinine Ratio 23.8 (10-20); Calcium 8.2 mg/dl (8.5-10.1); Creatinine Clr Calc Pharmacy 50.1 ml/min; Est GFR (African American) 96.1 ml/min; Est GFR (Non-African American) 82.9 ml/min; Potassium 3.8 mmol/L (3.5-5.1)
[2022-09-20] MEDS: ONDANSETRON INJ 2 MG/ML 2 ML VIAL IV PRN ×2 (13:08→20:02)
--- NOTE | 2022-09-20 18:10 | Hospitalist Progress Note ---
Date of Service September 20, 2022 Assessment & Plan (1) Sacral fracture: Plan: Acetaminophen 1g PO TID Avoid tramadol due to SIADH Low dose oxycodone 2.5mg PO q4h PRN PT/OT (2) Hearing loss: Plan: Patient is deaf and uses an ipad to communicate Patient's at bedside reports pain is controlled with Tylenol (3) Acute hyponatremia: Plan: Continue NaCl 1g PO BID Would hold lisinopril - consider alterative anti-hypertensive given chronic hyponatremia Repeat BMP in AM (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): Plan: NaCl 1g BID Fluid restrict 1500ml (6) Hyperparathyroidism: Plan: Continue cinacalcet (7) Hypertension: Plan: Monitor for hypertension off lisinopril - shlomo defer starting anything new on admission Plan VTE Prophylaxis - deferred pending stability in hemoglobin given scaral fracture as above Diet - regular, fluid restrict, easy to chew, no pork Disposition - admit to med/surg Admission and Anticipated Discharge Date Admission Date: September 19, 2022 Subjective Patient denies any fevers or chills No nausea vomiting noted Review of Systems Review of Systems: Patient has no abdominal pain No dysuria no hematuria Physical Exam Physical Exam: Head and ENT examination: No conjunctival pallor neck supple Cardiovascular S1-S2 heard normally no rubs Lungs bilateral air entry fair no wheezing Abdomen soft no rebound tenderness Extremity shows trace edema Results & Data Results & Data ([facility]) Vital Signs (Past 12 Hours) Vital Signs Temp Pulse Resp BP Pulse Ox O2 Del Method O2 Flow Rate 09/20/22 16:00 36.7 C 77 18 188/84 H 90 Room Air 09/20/22 07:45 Nasal Cannula 2 09/20/22 07:57 37.1 C 85 18 127/71 95 Room Air PG Care Time/CCT Total # of Minutes Spent Total Time Spent with Patient: Total time spent is greater than 50% in coordination of care (as documented) at patient's floor/unit and/or counseling patient: Coding Level of Care Code 82135 Subseq Hosp Care Lvl 2 Diagnoses Sacral fracture S32.10XA Hearing loss H91.90 Acute hyponatremia E87.1 NF2 (neurofibromatosis 2) Q85.02 SIADH (syndrome of inappropriate ADH production) E22.2 Hyperparathyroidism E21.3 Hypertension I10
[2022-09-20] MEDS: ESCITALOPRAM OXALATE 10 MG TAB PO SCH (20:06)
[2022-09-21 06:42] LABS: Hematocrit (blood only) 31.9 % (34.1-44.9); Hemoglobin 11.1 g/dl (12.0-16.0); Mean Corpuscular Hemoglobin 29.8 pg (25.0-34.0); Mean Corpuscular Hgb Conc 34.8 g/dL (32.0-36.0); Mean Corpuscular Volume 85.5 fL (80.0-100.0); Mean Platelet Volume 10.8 fL (9.4-12.3); Platelet Count 144 K/uL (130-400); RDW Coefficient of Variation 13.3 % (11.5-14.5); RDW Standard Deviation 42.2 fL (36.4-46.3); Red Blood Count 3.73 M/uL (3.93-5.22); White Blood Count 10.41 K/ul (4.8-10.8)
[2022-09-21 07:23] LABS: Calcium 8.5 mg/dl (8.5-10.1); Creatinine Clr Calc Pharmacy 51.7 ml/min; Est GFR (African American) 97.2 ml/min; Est GFR (Non-African American) 83.8 ml/min; Potassium 4.4 mmol/L (3.5-5.1)
[2022-09-21] MEDS: ACETAMINOPHEN 500 MG TAB PO SCH ×3 (09:43→21:07)
[2022-09-21] MEDS: MULTIVITAMIN CHEWABLE TAB PO SCH (09:44)
[2022-09-21] MEDS: ASPIRIN 81 MG ECTAB PO SCH (09:44)
[2022-09-21] MEDS: SODIUM CHLORIDE 1 GM TABLET PO SCH ×2 (09:44→21:08)
[2022-09-21] MEDS: CINACALCET HCL 30 MG TAB PO SCH (09:44)
[2022-09-21] MEDS: ONDANSETRON INJ 2 MG/ML 2 ML VIAL IV PRN ×2 (12:13→17:58)
--- NOTE | 2022-09-21 17:48 | Hospitalist Progress Note ---
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 (3) Acute hyponatremia: Plan: Continue NaCl 1g PO BID Would hold lisinopril - consider alterative anti-hypertensive given chronic hyponatremia Repeat BMP in AM (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): Plan: NaCl 1g BID Fluid restrict 1500ml (6) Hyperparathyroidism: Plan: Continue cinacalcet (7) Hypertension: Plan: Monitor for hypertension off lisinopril - shlomo defer starting anything new on admission Plan VTE Prophylaxis - deferred pending stability in hemoglobin given scaral fracture as above Diet - regular, fluid restrict, easy to chew, no pork Disposition - admit to med/surg Admission and Anticipated Discharge Date Admission Date: September 19, 2022 Subjective Patient denies any fevers or chills Patient has nausea symptoms reported today Pain control is still not improved when she moves Pain is controlled when patient is sitting still Review of Systems Review of Systems: Patient has no abdominal pain No dysuria no hematuria Physical Exam Physical Exam: Head and ENT examination: No conjunctival pallor neck supple Patient has hearing loss that is chronic Cardiovascular S1-S2 heard normally no rubs Lungs bilateral air entry fair no wheezing Abdomen soft no rebound tenderness Extremity shows trace edema Results & Data Results & Data ([facility]) Vital Signs (Past 12 Hours) Vital Signs Temp Pulse Resp BP Pulse Ox O2 Del Method O2 Flow Rate 09/21/22 13:22 93 Nasal Cannula 2 09/21/22 13:01 82 L Nasal Cannula 1 09/21/22 09:25 Nasal Cannula 09/21/22 07:52 37.0 C 73 18 129/70 94 Nasal Cannula PG Care Time/CCT Total # of Minutes Spent Total Time Spent with Patient: Total time spent is greater than 50% in coordination of care (as documented) at patient's floor/unit and/or counseling patient: Coding Level of Care Code 35258 Subseq Hosp Care Lvl 2 Diagnoses Sacral fracture S32.10XA Hearing loss H91.90 Acute hyponatremia E87.1 NF2 (neurofibromatosis 2) Q85.02 SIADH (syndrome of inappropriate ADH production) E22.2 Hyperparathyroidism E21.3 Hypertension I10
[2022-09-21] MEDS ORDERED: PROCHLORPERAZINE 5 MG in SYRINGE 4 ML IV PRN (17:49)
[2022-09-21] MEDS: ESCITALOPRAM OXALATE 10 MG TAB PO SCH (21:07)
[2022-09-22 07:46] LABS: Hematocrit (blood only) 32.8 % (34.1-44.9); Hemoglobin 11.4 g/dl (12.0-16.0); Mean Corpuscular Hemoglobin 29.4 pg (25.0-34.0); Mean Corpuscular Hgb Conc 34.8 g/dL (32.0-36.0); Mean Corpuscular Volume 84.5 fL (80.0-100.0); Mean Platelet Volume 10.5 fL (9.4-12.3); Platelet Count 142 K/uL (130-400); RDW Coefficient of Variation 13.6 % (11.5-14.5); RDW Standard Deviation 42.1 fL (36.4-46.3); Red Blood Count 3.88 M/uL (3.93-5.22); White Blood Count 3.98 K/ul (4.8-10.8)
[2022-09-22] MEDS: ASPIRIN 81 MG ECTAB PO SCH (07:54)
[2022-09-22] MEDS: SODIUM CHLORIDE 1 GM TABLET PO SCH ×2 (07:54→21:23)
[2022-09-22] MEDS: CINACALCET HCL 30 MG TAB PO SCH (07:54)
[2022-09-22] MEDS: ACETAMINOPHEN 500 MG TAB PO SCH ×3 (07:54→21:24)
[2022-09-22] MEDS: MULTIVITAMIN CHEWABLE TAB PO SCH (07:54)
[2022-09-22 08:14] LABS: BUN Creatinine Ratio 29.4 (10-20); Calcium 8.9 mg/dl (8.5-10.1); Creatinine Clr Calc Pharmacy 46.4 ml/min; Est GFR (African American) 93.8 ml/min; Est GFR (Non-African American) 80.9 ml/min; Potassium 4.7 mmol/L (3.5-5.1)
--- NOTE | 2022-09-22 14:28 | Hospitalist Progress Note ---
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 (3) Acute hyponatremia: Plan: Continue NaCl 1g PO BID Would hold lisinopril - consider alterative anti-hypertensive given chronic hyponatremia Sodium 129 close to baseline Repeat BMP in AM (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): Plan: NaCl 1g BID Fluid restrict 1500ml (6) Hyperparathyroidism: Plan: Continue cinacalcet (7) Hypertension: Plan: Monitor for hypertension off lisinopril - shlomo defer starting anything new on admission Plan Admission and Anticipated Discharge Date Admission Date: September 19, 2022 Subjective Patient denies any fevers or chills Patient has intermittent difficulty swallowing Pain control is still not improved when she moves Pain is controlled when patient is sitting still Review of Systems Review of Systems: Patient has no abdominal pain No dysuria no hematuria Physical Exam Physical Exam: Head and ENT examination: No conjunctival pallor neck supple Patient has hearing loss that is chronic Cardiovascular S1-S2 heard normally no rubs Lungs bilateral air entry fair no wheezing Abdomen soft no rebound tenderness Extremity shows trace edema Results & Data Results & Data ([facility]) Vital Signs (Past 12 Hours) Vital Signs O2 Del Method O2 Flow Rate 09/22/22 07:34 Nasal Cannula 2 Laboratory Results Short CBC 09/22/22 Range/Units 07:22 WBC 3.98 L (4.8-10.8) K/ul Hgb 11.4 L (12.0-16.0) g/dl Hct 32.8 L (34.1-44.9) % Plt Count 142 (130-400) K/uL BMP 09/22/22 07:22 Sodium 129 L Potassium 4.7 Chloride 95 L Carbon Dioxide 26 BUN 20 Creatinine 0.68 Glucose 114 H Calcium 8.9 PG Care Time/CCT Total # of Minutes Spent Total Time Spent with Patient: Total time spent is greater than 50% in coordination of care (as documented) at patient's floor/unit and/or counseling patient: Coding Level of Care Code 16804 Subseq Hosp Care Lvl 2 Diagnoses Sacral fracture S32.10XA Hearing loss H91.90 Acute hyponatremia E87.1 NF2 (neurofibromatosis 2) Q85.02 SIADH (syndrome of inappropriate ADH production) E22.2 Hyperparathyroidism E21.3 Hypertension I10
[2022-09-22] MEDS: ESCITALOPRAM OXALATE 10 MG TAB PO SCH (21:23)
[2022-09-23] MEDS: ONDANSETRON INJ 2 MG/ML 2 ML VIAL IV PRN ×2 (06:12→12:15)
[2022-09-23 06:20] LABS: Hematocrit (blood only) 31.8 % (34.1-44.9); Hemoglobin 11.2 g/dl (12.0-16.0); Mean Corpuscular Hemoglobin 29.8 pg (25.0-34.0); Mean Corpuscular Hgb Conc 35.2 g/dL (32.0-36.0); Mean Corpuscular Volume 84.6 fL (80.0-100.0); Mean Platelet Volume 10.4 fL (9.4-12.3); Platelet Count 177 K/uL (130-400); RDW Coefficient of Variation 13.5 % (11.5-14.5); RDW Standard Deviation 42.1 fL (36.4-46.3); Red Blood Count 3.76 M/uL (3.93-5.22)
--- NOTE | 2022-09-23 06:37 | Communication Note ---
Date of Service: September 23, 2022 dayshift to assess bladder area pain. last UA from 09/19. has huggins. will need to assess if repeat UA indicated
[2022-09-23 06:47] LABS: BUN Creatinine Ratio 42.3 (10-20); Calcium 8.9 mg/dl (8.5-10.1); Creatinine Clr Calc Pharmacy 60.7 ml/min; Est GFR (African American) 102.4 ml/min; Est GFR (Non-African American) 88.4 ml/min; Potassium 4.2 mmol/L (3.5-5.1)
[2022-09-23] MEDS ORDERED: hydrALAZINE 10 MG TAB PO PRN (08:01)
[2022-09-23] MEDS: SODIUM CHLORIDE 1 GM TABLET PO SCH ×2 (08:49→20:41)
[2022-09-23] MEDS: MULTIVITAMIN CHEWABLE TAB PO SCH (08:50)
[2022-09-23] MEDS: ASPIRIN 81 MG ECTAB PO SCH (08:50)
[2022-09-23] MEDS: ACETAMINOPHEN 500 MG TAB PO SCH ×3 (08:50→20:41)
[2022-09-23] MEDS: CINACALCET HCL 30 MG TAB PO SCH (08:51)
[2022-09-23] MEDS: oxyCODONE HCL IR 5 MG TAB (IMMEDIATE RELEASE) PO PRN ×2 (12:40→17:28)
--- NOTE | 2022-09-23 13:28 | Hospitalist Progress Note ---
Date of Service September 23, 2022 Assessment & Plan (1) Sacral fracture: Plan: CT a/p on 09/19 showed "Acute comminuted nondisplaced sacral fracture." - Pain control PRN * Acetaminophen 1g PO TID * Low dose oxycodone 2.5mg PO q4h PRN - PT/OT - Orthopedics consult ordered for sacral fracture recs. (2) Aspiration into airway: Plan: Per RN and BUSINESS APPLICATIONS SPECIALIST evaluation, she coughs with any liquids. Plan for video swallow. - Follow-up BUSINESS APPLICATIONS SPECIALIST recs. 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 (4) Acute hyponatremia: Plan: Na generally holds in high 120 - 130 range. Stable. - Continue NaCl 1g PO BID - Fluid restriction - Would hold lisinopril - consider alterative anti-hypertensive given chronic hyponatremia - Follow BMP (5) SIADH (syndrome of inappropriate ADH production): Plan: As above. (6) NF2 (neurofibromatosis 2): Plan: Noted. No inpatient needs (7) Hyperparathyroidism: Plan: Calcium stable. - Continue cinacalcet (8) Hypertension: Plan: BP as high as 205/90 today. - For now, started hydralazine 10 mg PO Q4h PRN for SBP > 190 or DBP > 110 - Start medication as able. BP seems very labile with others as low as 95/70. Plan DVT ppx: SCDs, Lovenox 40 mg SQ daily Admission and Anticipated Discharge Date Admission Date: September 19, 2022 Subjective Still with lots of trouble swallowing. Pain in the LUQ today and lots of nausea. Physical Exam Constitutional: WD/WN, vitals as above Eyes: EOM intact bilaterally; no conjunctival abnormality ENMT: external ear and nose normal, oropharynx normal Neck: trachea midline, no thyromegaly normal visual inspection Respiratory: normal respiratory effort, lungs clear to auscultation no respiratory distress Cardiovascular: RRR, no murmur, no edema Gastrointestinal (Abdomen): Inspection/Auscultation: abdomen normal to inspection; abdomen not distended Musculoskeletal: no cyanosis or clubbing, extremities motor strength 5/5 Skin: no rashes, warm and dry Neurologic: moves all extremities and awake Psychiatric: Orientation: alert, oriented to person and cooperative Results & Data Results & Data ([facility]) Vital Signs (Past 12 Hours) Vital Signs Temp Pulse Resp BP Pulse Ox O2 Del Method O2 Flow Rate 09/23/22 10:29 187/89 H 09/23/22 08:42 96 H 196/82 H 09/23/22 07:55 207/90 H 09/23/22 07:09 36.8 C 98 H 16 185/85 H 95 Nasal Cannula 2 PG Care Time/CCT Total # of Minutes Spent Total Time Spent with Patient: Total time spent is greater than 50% in coordination of care (as documented) at patient's floor/unit and/or counseling patient: Coding Level of Care Code 85708 Subseq Hosp Care Lvl 2 Diagnoses Sacral fracture S32.10XA Aspiration into airway T17.908A Hearing loss H91.90 Acute hyponatremia E87.1 SIADH (syndrome of inappropriate ADH production) E22.2 NF2 (neurofibromatosis 2) Q85.02 Hyperparathyroidism E21.3 Hypertension I10
--- NOTE | 2022-09-23 16:06 | Fluoroscopy Report ---
FL video swallow CLINICAL HISTORY: 82 years-old Female with r/o aspiration. Dysphasia with possible aspiration TECHNIQUE: Video fluoroscopic evaluation of swallowing was performed in the AP and lateral projection s by the speech pathology staff. The patient is fed thin liquid, mildly thick and pudding consistenci es. FLUOROSCOPY TIME: 0.9 minutes. COMPARISON STUDY: Chest radiograph 09/19/2022 FINDINGS: Large amount of silent aspiration with thin liquid barium. Residual within the the vallecula and piri form sinuses noted with pudding consistency and prolonged oropharyngeal transit. IMPRESSION: 1. Silent aspiration with thin liquid barium. 2. Please see the speech pathologist report for detailed findings and recommendations. ACT 112: Negative or not required by law. Electronically signed by: Carlos Lazcano M.D. 09/23/2022 4:05 PM
--- NOTE | 2022-09-23 16:18 | XRay Report ---
KUB CLINICAL HISTORY: Generalized abdominal pain. Nausea and vomiting. FINDINGS: 2 AP, portable, supine abdominal radiographs are correlated with abdominal CT dated 022. There is a nonobstructed abdominal bowel gas pattern. Moderate fecal retention is noted througho ut the colon. No evidence of intraperitoneal free air is seen on these supine images. There are no ab normal abdominal calcifications. The skeletal structures are osteopenic. There is lumbosacral spondyl osis. Advanced arthritic change and deformity is seen in the right hip. The sacral fracture seen by C T is not well assessed by x-ray. Opacities are noted at the left lung base. IMPRESSION: Moderate colonic fecal retention with no bowel obstruction identified. Electronically signed by: Jan Perry M.D. 09/23/2022 4:17 PM
[2022-09-23] MEDS: METHYLNALTREXONE BROMIDE 12 MG/0.6 ML VIAL SQ SCH (18:36)
[2022-09-23] MEDS: ESCITALOPRAM OXALATE 10 MG TAB PO SCH (20:41)
[2022-09-23] MEDS: hydrALAZINE HCL 20 MG/ML VIAL IV PRN (21:30)
[2022-09-24] MEDS: ONDANSETRON INJ 2 MG/ML 2 ML VIAL IV PRN (02:36)
[2022-09-24] MEDS: oxyCODONE HCL IR 5 MG TAB (IMMEDIATE RELEASE) PO PRN (06:26)
[2022-09-24 06:42] LABS: Hematocrit (blood only) 32.5 % (34.1-44.9); Hemoglobin 11.3 g/dl (12.0-16.0); Mean Corpuscular Hemoglobin 29.3 pg (25.0-34.0); Mean Corpuscular Hgb Conc 34.8 g/dL (32.0-36.0); Mean Corpuscular Volume 84.2 fL (80.0-100.0); Mean Platelet Volume 10.1 fL (9.4-12.3); Platelet Count 267 K/uL (130-400); RDW Standard Deviation 43.1 fL (36.4-46.3); Red Blood Count 3.86 M/uL (3.93-5.22); White Blood Count 6.13 K/ul (4.8-10.8)
[2022-09-24 07:26] LABS: BUN Creatinine Ratio 44.8 (10-20); Calcium 9.1 mg/dl (8.5-10.1); Creatinine Clr Calc Pharmacy 47.1 ml/min; Est GFR (African American) 94.2 ml/min; Est GFR (Non-African American) 81.3 ml/min
[2022-09-24] MEDS: lisinopril 5 MG TAB PO SCH (08:07)
[2022-09-24] MEDS: ACETAMINOPHEN 500 MG TAB PO SCH ×2 (09:12→15:02)
[2022-09-24] MEDS: ASPIRIN 81 MG ECTAB PO SCH (09:13)
[2022-09-24] MEDS: CINACALCET HCL 30 MG TAB PO SCH (09:13)
[2022-09-24] MEDS: MULTIVITAMIN CHEWABLE TAB PO SCH (09:13)
[2022-09-24] MEDS: SODIUM CHLORIDE 1 GM TABLET PO SCH (09:13)
--- NOTE | 2022-09-24 12:59 | Progress Notes ---
The patient is 82. She fell last in the bathroom, fell backwards, witnessed by her . After that, she could not walk. She was admitted to the hospital. She has been worked up. She is known to have severe right hip arthritis. CT scan showed a sacral fracture. She has multiple medic al problems including SIADH, hearing loss, osteoporosis, hypertension, and depression. She is afebri le. Her vital signs are stable, although she has had some pulses in the low 100s and elevated blood pressures. She is on the medicine service. White count is 6, hemoglobin 11, hematocrit 33, and plat elets are 267. Her PRP is noted. She had a CT scan of the lumbar spine, abdomen, and pelvis. No ac maricel fractures in the lumbar spine. Acute sacral fracture. Severe right hip arthritis. Plain x-rays of the pelvis will be obtained. On examination, she communicates with a reading device. She lifts both upper extremities without dif ficulty. She has some limited movement of the right. She can slightly lift her leg off the bed that she has slightly limited movement of her right leg due to the arthritis. Crepitation is noted, but there is no tenderness to palpation. She can lift her right leg up off the table slightly, her left leg more so. She can flex her left knee to 90, right knee about 60. There was less rotatory movemen ts on the right versus the left. Distal neurovascular intact with no tenderness to palpation or swel ling of either lower extremity. Her pelvis is stable to rocking and compression and does not appear to be tender to palpation front or back. We could sit her up. She has a nondisplaced sacral fractur e and severe right hip arthritis. She can weight bear as tolerated with a walker. PT and OT. Pain control. She might benefit from a sacral donut for sitting if necessary. We can follow up with her as an outpatient. We will get a plain x-ray of the pelvis. She is on an aspirin, which should suffi ce for DVT prophylaxis. Job ID: [id number]
--- NOTE | 2022-09-24 13:14 | Orthopedic Consultation ---
Date of Consultation September 24, 2022 Assessment & Plan (1) Closed sacral fracture: WBAT with walker assistance Jeffery vilchis PT/OT Pain control with PO medications [facility] Medicine service f/u at [facility] 10-14 days after discharge At f/u will place consult order for US guided Left hip steroid injection History of Present Illness Reason for Consultation: nondisplaced sacral fracture Requesting Physician: Osiot Fernandes MD Attending Physician: Guilherme Espinoza MD History of Present Illness This 82-year-old female is seen in consultation for a nondisplaced sacral fracture that occurred when she fell in her bathroom on 09/19. She states that as long as she sits on the bed, she has no pain. Patient is hard of hearing and doses not speak well, so she uses and Ipad to translate. 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 She has been evaluated in [place] but has elected not to do surgery due to her other underlying health issues. Allergies Allergy/AdvReac Type Severity Reaction Status Date / Time Cephalosporins Allergy Intermediate RASH Verified 09/19/22 14:57 cefazolin Allergy Unknown UNKNOWN Verified 09/19/22 14:57 donepezil [From Aricept] Allergy Unknown Unknown Verified 09/19/22 14:57 adhesive tape Allergy Unknown Verified 09/19/22 14:57 amlodipine [From Norvasc] Allergy Edema Verified 09/19/22 14:57 Sulfa (Sulfonamide Allergy Unknown Verified 09/19/22 14:57 Antibiotics) Home Medications Medication Instructions Recorded Confirmed Type aspirin 81 mg tablet,delayed 81 mg PO DAILY 10/21/18 09/19/22 History release (Aspir-) pediatric multivitamin no.7-folic 1 tab PO DAILY 10/21/18 09/19/22 History acid 100 mcg chewable tablet (Flintstones Tab Chew) acetaminophen 500 mg tablet 500 mg PO Q6H PRN Pain 09/05/20 09/19/22 History (Tylenol Extra Strength) lisinopril 5 mg tablet 5 mg PO DAILY #90 tabs 07/11/22 09/19/22 Rx cinacalcet 30 mg tablet 30 mg PO DAILY #30 tabs 08/27/22 09/19/22 Rx sodium chloride 1 gram tablet 1 g PO BID 30 days #60 tabs 09/02/22 09/19/22 Rx escitalopram oxalate 5 mg tablet 5 mg PO HS 09/19/22 09/19/22 History Patient History Medical History Acoustic neuroma Depression Gait disturbance Hearing loss Hx of cataract Hypercalciuria Hypertension Hypertensive urgency Hypokalemia Osteoporosis SIADH (syndrome of inappropriate ADH production) Vitamin D deficiency Surgical History History of craniotomy excision of acoustic neuroma Hx of cataract surgery Hx of cholecystectomy Hx of hysterectomy Hx of total knee replacement Family History Aunt Breast cancer Brother Colorectal cancer Heart problem Mother Heart problem Father Heart problem Sister Multiple sclerosis Other Family history non-contributory Denies family history of Ovarian cancer Prostate cancer Myocardial infarction Social History Smoking Status: Never smoker Second Hand Exposure: No; Hx Alcohol Use: No Hx Substance Use: No Preferred Language: Sami Communication Ability: Effective Visual Impairment: No Limitations Hearing Ability: Hard of Hearing Regulatory Intern Required: No Beliefs That Will Affect Care: None marital status: Current Living Situation: Spouse current occupational status: retired How many Children do You have: 2 Feels Safe at Home: Yes Childhood Exposure to Second-Hand Smoke: No caffeine: Yes Dental Care, Regularly: Yes Physical Activity Frequency: Does not Exercise Seatbelt Use: always Sunscreen Use: No Assistive Devices: Walker Review of Systems Review of Systems: All systems reviewed & are unremarkable except as noted in HPI & below Physical Exam Physical Exam: Sacrum: TTP over mid body of sacrum. No tenderness over Iliac crests or SI joints. TTP over lower lumbar spine. No palpable deformity. No paraspinal muscular spasm Righthip: Flexion limited to 80. Extreme pain w/ very light passive internal and external hip rotation. + log Roll. Unable to SLR. Right LE is 1 inch shorter than left. No external rotation. TTP in groin. Results & Data ([facility]) Vital Signs (Past 12 Hours) Vital Signs Temp Pulse Resp BP Pulse Ox O2 Del Method O2 Flow Rate 09/24/22 10:39 Nasal Cannula 2 09/24/22 09:14 105 H 158/90 H 10/25/22 08:05 103 H 180/101 H 09/24/22 07:43 37.1 C 112 H 16 187/83 H 93 2 Diagnostic Findings Laboratory Results WBC 6.13 K/ul (4.8-10.8) 09/24/22 06:15 RBC 3.86 M/uL (3.93-5.22) L 09/24/22 06:15 Hgb 11.3 g/dl (12.0-16.0) L 09/24/22 06:15 Hct 32.5 % (34.1-44.9) L 09/24/22 06:15 MCV 84.2 fL (80.0-100.0) 09/24/22 06:15 MCH 29.3 pg (25.0-34.0) 09/24/22 06:15 MCHC 34.8 g/dL (32.0-36.0) 09/24/22 06:15 RDW Std Deviation 43.1 fL (36.4-46.3) 09/24/22 06:15 RDW Coeff of Missy 14.0 % (11.5-14.5) 09/24/22 06:15 Plt Count 267 K/uL (130-400) D 09/24/22 06:15 MPV 10.1 fL (9.4-12.3) 09/24/22 06:15 Immature Gran % (Auto) 0.5 % 09/19/22 09:50 Neut % (Auto) 91.8 % 09/19/22 09:50 Lymph % (Auto) 1.9 % 09/19/22 09:50 [place] % (Auto) 5.7 % 09/19/22 09:50 Eos % (Auto) 0.0 % 09/19/22 09:50 Baso % (Auto) 0.1 % 09/19/22 09:50 Neut # (Auto) 7.12 K/uL (1.4-6.5) H 09/19/22 09:50 Lymph # (Auto) 0.15 K/uL (1.2-3.4) L 09/19/22 09:50 [place] # (Auto) 0.44 K/uL (0.24-0.82) 09/19/22 09:50 Eos # (Auto) 0.00 K/uL (0-0.50) 09/19/22 09:50 Baso # (Auto) 0.01 K/uL (0-0.2) 09/19/22 09:50 Immature Gran # (Auto) 0.04 K/uL (0.00-0.02) H 09/19/22 09:50 Sodium 135 mmol/L (136-145) L 09/24/22 06:15 Potassium 4.0 mmol/L (3.5-5.1) 09/24/22 06:15 Chloride 99 mmol/L (98-107) 09/24/22 06:15 Carbon Dioxide 26 mmol/L (21-32) 09/24/22 06:15 Anion Gap 10 (3-11) 09/24/22 06:15 BUN 30 mg/dl (6-23) H 09/24/22 06:15 Creatinine 0.67 mg/dl (0.6-1.2) 09/24/22 06:15 Est Cr Clr Drug Dosing 47.1 ml/min 09/24/22 06:15 Est GFR ( Amer) 94.2 ml/min 09/24/22 06:15 Est GFR (Non-Af Amer) 81.3 ml/min 09/24/22 06:15 BUN/Creatinine Ratio 44.8 (10-20) H 09/24/22 06:15 Glucose 108 mg/dl (70-99(Fasting)) H 09/24/22 06:15 Calcium 9.1 mg/dl (8.5-10.1) 09/24/22 06:15 Magnesium 1.7 mg/dl (1.7-2.4) 09/19/22 09:50 Total Bilirubin 0.6 mg/dl (0.2-1.0) 09/19/22 09:50 AST 33 U/L (13-39) 09/19/22 09:50 ALT 24 U/L (7-52) 09/19/22 09:50 Alkaline Phosphatase 68 U/L (34-104) 09/19/22 09:50 Troponin I High Sens 4.4 pg/ml (0-14) 09/19/22 09:50 Total Protein 7.1 gm/dl (6.0-8.3) 09/19/22 09:50 Albumin 3.8 gm/dl (3.4-5.0) 09/19/22 09:50 Globulin 3.3 gm/dl (2.5-4.0) 09/19/22 09:50 Albumin/Globulin Ratio 1.2 (0.9-2) 09/19/22 09:50 Vitamin B12 1013 pg/ml (180-914) H 09/20/22 07:55 TSH 1.525 uIu/ml (0.300-4.500) 09/19/22 09:50 Urine Color Yellow 09/19/22 12:04 Urine Appearance Cloudy (Clear) A 09/19/22 12:04 Urine pH 8.0 (4.5-7.5) H 09/19/22 12:04 Ur Specific [place] 1.016 (1.000-1.030) 09/19/22 12:04 Urine Protein Trace (Negative) H 09/19/22 12:04 Urine Glucose (UA) Negative (Negative) 09/19/22 12:04 Urine Ketones 1+ (Negative) H 09/19/22 12:04 Urine Blood Negative (Negative) 09/19/22 12:04 Urine Nitrite Negative (Negative) 09/19/22 12:04 Urine Bilirubin Negative (Negative) 09/19/22 12:04 Urine Urobilinogen Negative (Negative) 09/19/22 12:04 Ur Leukocyte Esterase Negative (Negative) 09/19/22 12:04 Urine WBC (Auto) 0 /hpf (0-5) 09/19/22 12:04 Urine RBC (Auto) 0-4 /hpf (0-4) 09/19/22 12:04 U Hyaline Cast (Auto) 1-5 /lpf (0-5) 09/19/22 12:04 U Epithel Cells (Auto) 5-10 /lpf (0-5) H 09/19/22 12:04 Urine Bacteria (Auto) Negative (Negative) 09/19/22 12:04 SARS-CoV-2, RNA, NAAT NEGATIVE (NEGATIVE) 09/19/22 11:12 Impressions Chest X-Ray 09/19/22 10:53 XR chest 1V portable HISTORY: 82 years-old Female weakness acute weakness COMPARISON: Chest radiograph 08/30/2022 TECHNIQUE: Semierect AP view of the chest FINDINGS: The cardiomediastinal and hilar silhouettes are within normal limits. No pneumothorax, pleural effusion, airspace consolidation or overt pulmonary edema. Unchanged linear scarring versus atelectasis of the left lung base. Degenerative changes of the shoulders and spine. Chronic deformity of the anterior left fourth and fifth ribs. IMPRESSION: No acute process. ACT 112: Negative or not required by law. The above report was generated using voice recognition software. It may contain grammatical, syntax or spelling errors. Electronically signed by: Carlos Lazcano M.D. 09/19/2022 11:09 AM Abdomen/Pelvis CT 09/19/22 10:54 CT SCAN OF THE ABDOMEN AND PELVIS WITHOUT IV CONTRAST CLINICAL HISTORY: Fall. Hip and pelvic pain. COMPARISON STUDY: Pelvic radiograph dated 10/30/2018. TECHNIQUE: CT scan of the abdomen and pelvis is performed from the lung bases to the proximal femora. Images are reviewed in the axial, sagittal, and coronal planes. IV contrast was not administered for this examination. Note that the examination is suboptimal without oral and IV contrast. A dose lowering technique was utilized adhering to the principles of ALARA. The examination is compromised by motion artifact. CT DOSE: 249.45 mGy.cm FINDINGS: Lung bases: The heart is normal in size and without pericardial effusion. There are coronary artery calcifications. A hiatal hernia is noted. The lung bases are clear noting bibasilar scarring/atelectasis. Liver: The unenhanced liver is normal in size, contour, and attenuation. There is no intrahepatic biliary ductal dilatation. Gallbladder: Contracted versus surgically absent. This is suboptimally assessed due to motion artifact. Spleen: Normal in size and attenuation. Pancreas: The unenhanced pancreas is grossly unremarkable but not well assessed due to motion artifact and lack of IV contrast. Adrenal glands: Unremarkable. Kidneys: The unenhanced kidneys demonstrate mild cortical atrophy and are without hydronephrosis. There are no renal calculi identified. A 12 mm cyst is noted on the right. Abdominal vasculature: There is advanced atherosclerotic calcification and mild ectasia of the abdominal aorta. Bowel: There is moderate sigmoid diverticulosis without CT evidence of acute diverticulitis. No bowel obstruction is seen. The appendix is well-visualized and normal. A right groin hernia contains a nonobstructive loop of small bowel. Peritoneum: There is no intraperitoneal free air or abdominal ascites. Lymphadenopathy: None. Pelvic viscera: The bladder is distended but otherwise normal in appearance. The uterus is surgically absent. No adnexal lesion is seen. A right groin hernia contains a segment of bowel. Skeletal structures: The skeletal structures are osteopenic. There is a comminuted fracture of the sacrum which is likely acute. This is located at the level of S3. Overlying hemorrhage is noted. There is severe chronic deformity of the right hip joint/proximal femur, with a shallow acetabulum and advanced arthritic change. 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 There is an age indeterminant inferior endplate compression fracture of T12. Healed bilateral rib fractures are noted. No lytic or blastic lesions are seen. IMPRESSION: 1. Suboptimal examination without oral and IV contrast. The examination is also severely degraded by motion artifact. 2. There is no evidence of solid organ injury in the abdomen or pelvis on this unenhanced examination. 3. There is a comminuted fracture of the sacrum which is likely acute. Surrounding hemorrhage is noted. 4. Age indeterminate inferior endplate compression deformity of T12. Correlate for point tenderness. 5. Severe chronic deformity and arthritic change of the right hip as above. This is similar to the 2018 radiographs. 6. There is also degenerative change of the left hip with avascular necrosis and cortical collapse of the left femoral head. This has significantly progressed from the 2018 radiograph. 7. Colonic diverticulosis without CT evidence of acute diverticulitis. 8. A right groin hernia contains a nonobstructed loop of small bowel. 9. Additional findings as above. ACT 112: Negative or not required by law. Electronically signed by: Jan Perry M.D. 09/19/2022 12:[address] 09/19/22 10:54 CT lumbar spine wo con HISTORY: 82 years-old Female Fall, low back pain acute low back pain status post fall COMPARISON: CT abdomen and pelvis of same day, pelvis and hip radiographs 10/30/2018. TECHNIQUE: Multiple axial CT images of the lumbar spine were obtained without use of IV contrast. A dose lowering technique was used consistent with the principals of ALARA. FINDINGS: Demineralized appearance of the bones with minimal spondylitic spurring. The intervertebral disc spaces are generally well maintained. Moderate to severe multilevel facet arthrosis. No acute fracture or subluxation of the lumbar spine identified. Subtle acute nondisplaced fracture of the right mid sacrum. The comminution is better appreciated on the CT abdomen and pelvis study. Small amount of presacral edema/hemorrhage. Moderate degeneration of the menisci joints. The imaged iliac bones appear intact. Evaluation of the central canal and neuroforamina is better assessed by MRI. There is a least mild central canal stenosis at L4-L5 with multilevel neural foraminal narrowing, moderate on the right at L4-L5. Atherosclerosis of the aorta. Chronic deformity of the right femoral acetabular joint. Avascular necrosis of the left femoral head seen on the equipment maint tech localizer images. IMPRESSION: 1. No acute fracture or subluxation identified within the lumbar spine. 2. Acute comminuted nondisplaced sacral fracture, better evaluated on the CT abdomen and pelvis study of same day. Small amount of presacral edema. ACT 112: Negative or not required by law. The above report was generated using voice recognition software. It may contain grammatical, syntax or spelling errors. Electronically signed by: Carlos Lazcano M.D. 09/19/2022 3:03 PM Videofluoroscopic Swallow 09/23/22 08:30 FL video swallow CLINICAL HISTORY: 82 years-old Female with r/o aspiration. Dysphasia with possible aspiration TECHNIQUE: Video fluoroscopic evaluation of swallowing was performed in the AP and lateral projections by the speech pathology staff. The patient is fed thin liquid, mildly thick and pudding consistencies. FLUOROSCOPY TIME: 0.9 minutes. COMPARISON STUDY: Chest radiograph 09/19/2022 FINDINGS: Large amount of silent aspiration with thin liquid barium. Residual within the the vallecula and piriform sinuses noted with pudding consistency and prolonged oropharyngeal transit. IMPRESSION: 1. Silent aspiration with thin liquid barium. 2. Please see the speech pathologist report for detailed findings and recommendations. ACT 112: Negative or not required by law. Electronically signed by: Carlos Lazcano M.D. 09/23/2022 4:05 PM KUB X-Ray 09/23/22 13:30 KUB CLINICAL HISTORY: Generalized abdominal pain. Nausea and vomiting. FINDINGS: 2 AP, portable, supine abdominal radiographs are correlated with abdominal CT dated 09/19/2022. There is a nonobstructed abdominal bowel gas pattern. Moderate fecal retention is noted throughout the colon. No evidence of intraperitoneal free air is seen on these supine images. There are no abnormal abdominal calcifications. The skeletal structures are osteopenic. There is lumbosacral spondylosis. Advanced arthritic change and deformity is seen in the right hip. The sacral fracture seen by CT is not well assessed by x-ray. Opacities are noted at the left lung base. IMPRESSION: Moderate colonic fecal retention with no bowel obstruction identified. Electronically signed by: Jan Perry M.D. 09/23/2022 4:17 PM (1) Closed sacral fracture Encounter type: initial encounter Zone of sacrum fracture: unspecified portion of sacrum Qualified Code(s): S32.10XA - Unspecified fracture of sacrum, initial encounter for closed fracture
[2022-09-24] MEDS ORDERED: LACTATED RINGER'S 500 ML IV ONE (14:34)
--- NOTE | 2022-09-24 14:39 | Hospitalist Progress Note ---
Date of Service September 24, 2022 Assessment & Plan (1) Sacral fracture: Plan: CT a/p on 09/19 showed "Acute comminuted nondisplaced sacral fracture." - Pain control PRN * Acetaminophen 1g PO TID * Low dose oxycodone 2.5mg PO q4h PRN - PT/OT - Orthopedics consulted -> Weight-bearing as tolerated. Pelvic x-rays ordered. (2) Aspiration into airway: Plan: Per RN and [employer] evaluation, she coughs with any liquids. Video swallow on 09/23 was terrible with jonas aspiration of thin liquids. Posterior phargynx was so weak that pudding would not go down, then using thin liquids to flush it, she aspirated again. - IV fluids for now - Adjusted dietary recs - PPN consult ordered - Gen surgery consulted for PEG tube. Patient had one previously after right schwannoma resection, and patient and family willing to have it done again. 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 (4) Acute hyponatremia: Plan: Na generally holds in high 120 - 130 range. Stable. - Continue NaCl 1g PO BID - Fluid restriction as able, though will need to loosen with PPN. - Follow BMP (5) SIADH (syndrome of inappropriate ADH production): Plan: As above. (6) NF2 (neurofibromatosis 2): Plan: Noted. No inpatient needs (7) Hyperparathyroidism: Plan: Calcium stable. - Continue cinacalcet (8) Hypertension: Plan: BP was as high as 205/90. Improved now. - Restarted lisinopril on 09/24. - For now, started hydralazine 10 mg PO Q4h PRN for SBP > 190 or DBP > 110 Plan DVT ppx: SCDs, Lovenox 40 mg SQ daily Admission and Anticipated Discharge Date Admission Date: September 19, 2022 Subjective No change today. Less pain, but still with lots of nausea. Reports no fevers/chills, chest pain, shortness of breath, or vomiting. Physical Exam Constitutional: WD/WN, vitals as above Eyes: EOM intact bilaterally; no conjunctival abnormality ENMT: external ear and nose normal, oropharynx normal Neck: trachea midline, no thyromegaly normal visual inspection Respiratory: normal respiratory effort, lungs clear to auscultation no respiratory distress Cardiovascular: RRR, no murmur, no edema Gastrointestinal (Abdomen): Inspection/Auscultation: abdomen normal to inspection; abdomen not distended Musculoskeletal: no cyanosis or clubbing, extremities motor strength 5/5 Skin: no rashes, warm and dry Neurologic: moves all extremities and awake Psychiatric: Orientation: alert, oriented to person and cooperative Results & Data Results & Data ([facility]) Vital Signs (Past 12 Hours) Vital Signs Temp Pulse Resp BP Pulse Ox O2 Del Method O2 Flow Rate 09/24/22 10:39 Nasal Cannula 2 09/24/22 09:14 105 H 158/90 H 09/24/22 08:05 103 H 180/101 H 09/24/22 07:43 37.1 C 112 H 16 187/83 H 93 2 PG Care Time/CCT Total # of Minutes Spent Total Time Spent with Patient: Total time spent is greater than 50% in coordination of care (as documented) at patient's floor/unit and/or counseling patient: Coding Level of Care Code 31467 Subseq Hosp Care Lvl 3 Diagnoses Sacral fracture S32.10XA Aspiration into airway T17.908A Hearing loss H91.90 Acute hyponatremia E87.1 SIADH (syndrome of inappropriate ADH production) E22.2 NF2 (neurofibromatosis 2) Q85.02 Hyperparathyroidism E21.3 Hypertension I10
[2022-09-24] MEDS ORDERED: TPN/PPN CONSULT PHARMACY PRN (14:52)
[2022-09-24] MEDS ORDERED: DEXTROSE 10% 1,000 ML IV PRN (14:53)
--- NOTE | 2022-09-24 15:37 | XRay Report ---
XR pelvis 1-2V routine HISTORY: 82 years-old Female sacral fracture follow up study in a patient with reported sacral fract ure COMPARISON: CT abdomen and pelvis 09/19/2022 TECHNIQUE: AP view of the pelvis FINDINGS: Retained enteric contrast is noted within the large bowel. The acute nondisplaced sacral fracture tracy cribed on the recent CT study is not well visualized by radiography. The sacrum is partially obscured by bowel gas. Avascular necrosis with partial articular collapse of the left femoral head. Severe osteoarthritis of the bilateral hips. Right-sided coxa magna with chronic remodeling of the right femoral acetabular j oint. IMPRESSION: 1. Limited exam secondary to overlying bowel gas. The acute sacral fracture described on the recent C T exam is not well visualized by radiography. 2. Unchanged chronic appearance of the bilateral hips. ACT 112: Negative or not required by law. The above report was generated using voice recognition software. It may contain grammatical, syntax o r spelling errors. Electronically signed by: Carlos Lazcano M.D. 09/24/2022 3:36 PM
--- NOTE | 2022-09-24 17:02 | Surgery Consultation ---
Date of Consultation September 24, 2022 Assessment & Plan (1) Aspiration into airway: I agree a feeding tube will be necessary to safely feed her to prevent aspiration. They are comfortable with his decision because she has had 1 before. We discussed placement may be more difficult since she has had 1 before. We discussed possible complications such as bleeding, infection, injury to another organ, DVT, PE, UT, CVA etc. I may have to perform an open technique if I am unable to safely identify the anatomy again because of her prior feeding tube. After all this I have answered their questions. They all agree. Consent has been signed. We will plan on EGD with gastrostomy tube placement possible open this coming . 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 She has a sacral fracture status post a fall. She also is essentially deaf from an acoustic neuroma and communicates via iPad. Her family members are at bedside. She has had a feeding tube about 10 or 12 years ago following surgery for an acoustic neuroma. Currently she is aspirating and is failed swallowing test and the consult is for gastrostomy tube placement. Allergies Allergy/AdvReac Type Severity Reaction Status Date / Time Cephalosporins Allergy Intermediate RASH Verified 09/19/22 14:57 cefazolin Allergy Unknown UNKNOWN Verified 09/19/22 14:57 donepezil [From Aricept] Allergy Unknown Unknown Verified 09/19/22 14:57 adhesive tape Allergy Unknown Verified 09/19/22 14:57 amlodipine [From Norvasc] Allergy Edema Verified 09/19/22 14:57 Sulfa (Sulfonamide Allergy Unknown Verified 09/19/22 14:57 Antibiotics) Home Medications Medication Instructions Recorded Confirmed Type aspirin 81 mg tablet,delayed 81 mg PO DAILY 10/21/18 09/19/22 History release (Aspir-) pediatric multivitamin no.7-folic 1 tab PO DAILY 10/21/18 09/19/22 History acid 100 mcg chewable tablet (Flintstones Tab Chew) acetaminophen 500 mg tablet 500 mg PO Q6H PRN Pain 09/05/20 09/19/22 History (Tylenol Extra Strength) lisinopril 5 mg tablet 5 mg PO DAILY #90 tabs 07/11/22 09/19/22 Rx cinacalcet 30 mg tablet 30 mg PO DAILY #30 tabs 08/27/22 09/19/22 Rx sodium chloride 1 gram tablet 1 g PO BID 30 days #60 tabs 09/02/22 09/19/22 Rx escitalopram oxalate 5 mg tablet 5 mg PO HS 09/19/22 09/19/22 History Patient History Medical History Acoustic neuroma Depression Gait disturbance Hearing loss Hx of cataract Hypercalciuria Hypertension Hypertensive urgency Hypokalemia Osteoporosis SIADH (syndrome of inappropriate ADH production) Vitamin D deficiency Surgical History History of craniotomy excision of acoustic neuroma Hx of cataract surgery Hx of cholecystectomy Hx of hysterectomy Hx of total knee replacement Family History Aunt Breast cancer Brother Colorectal cancer Heart problem Mother Heart problem Father Heart problem Sister Multiple sclerosis Other Family history non-contributory Denies family history of Ovarian cancer Prostate cancer Myocardial infarction Social History Smoking Status: Never smoker Second Hand Exposure: No; Hx Alcohol Use: No Hx Substance Use: No Preferred Language: Indonesian Communication Ability: Effective Visual Impairment: No Limitations Hearing Ability: Hard of Hearing Selling Underwriter Required: No Beliefs That Will Affect Care: None marital status: Current Living Situation: Spouse current occupational status: retired How many Children do You have: 2 Feels Safe at Home: Yes Childhood Exposure to Second-Hand Smoke: No caffeine: Yes Dental Care, Regularly: Yes Physical Activity Frequency: Does not Exercise Seatbelt Use: always Sunscreen Use: No Assistive Devices: Walker Review of Systems Review of Systems: All systems reviewed & are unremarkable except as noted in HPI & below Physical Exam Physical Exam: Frail/cachectic. Extremely hard of hearing. Does communicate via iPad. Alert and oriented. Neck: Supple. No JVD Respiratory: No labored breathing. Good inspiratory effort. Not using accessory muscles. Cardiovascular: Regular rate slightly tachycardic. Gastrointestinal (Abdomen): Soft. Nontender. Right subcostal incision from an open gallbladder removal. She has a small scar from prior gastrostomy tube. Skin: Frail. Poor skin turgor. Results & Data ([facility]) Vital Signs (Past 12 Hours) Vital Signs Temp Pulse Resp BP Pulse Ox O2 Del Method O2 Flow Rate 09/24/22 16:41 37.8 C H 108 H 16 147/67 H 92 2 09/24/22 10:39 Nasal Cannula 2 09/24/22 09:14 105 H 158/90 H 09/24/22 08:05 103 H 180/101 H 09/24/22 07:43 37.1 C 112 H 16 187/83 H 93 2 PG Care Time/CCT Total # of Minutes Spent Total Time Spent with Patient: Total time spent is greater than 50% in coordination of care (as documented) at patient's floor/unit and/or counseling patient: Coding Level of Care Code 65586 Initial Inpt Care Lvl 3 Diagnoses Aspiration into airway T17.908A Weight loss R63.4 SIADH (syndrome of inappropriate ADH production) E22.2 Acoustic neuroma D33.3 Hypertension I10
--- NOTE | 2022-09-24 20:06 | Communication Note ---
Date of Service: September 24, 2022 Notified by nursing of aspiration during video swallow study. Will convert to strict NPO and convert meds to IV version where available. Tylenol IV wt a djusted. Morphine 2mg q4h prn. Cinacalcet and salt tabs w/o conversion, but recent labs show stability of Ca and Na. Ordering blood cultures for new temp of 37.8C. No urinary symptoms. Has cough. O2 sats stable (92%) on 2L. Deferring UA and cxr at this time.
[2022-09-24] MEDS ORDERED: ACETAMINOPHEN 10MG/ML Custom 1,000 MG in EMPTY BAG 0 ML IV SCH (22:00)
[2022-09-24] MEDS: ENALAPRILAT 0.625 MG in SYRINGE 9.5 ML IV SCH (23:33)
[2022-09-24] MEDS: ACETAMINOPHEN 10MG/ML Custom 650 MG in EMPTY BAG 0 ML IV SCH (23:33)
[2022-09-25] MEDS: MoRPHine SULFATE 2 MG/ML CARP IV PRN (06:03)
[2022-09-25 06:28] LABS: Hematocrit (blood only) 31.7 % (34.1-44.9); Hemoglobin 10.6 g/dl (12.0-16.0); Mean Corpuscular Hgb Conc 33.4 g/dL (32.0-36.0); Mean Corpuscular Volume 86.6 fL (80.0-100.0); Platelet Count 314 K/uL (130-400); RDW Coefficient of Variation 14.5 % (11.5-14.5); RDW Standard Deviation 46.1 fL (36.4-46.3); Red Blood Count 3.66 M/uL (3.93-5.22); White Blood Count 7.74 K/ul (4.8-10.8)
[2022-09-25] MEDS: ACETAMINOPHEN 10MG/ML Custom 650 MG in EMPTY BAG 0 ML IV SCH ×4 (06:43→22:57)
[2022-09-25 07:06] LABS: Albumin Globulin Ratio 0.9 (0.9-2); BUN Creatinine Ratio 52.9 (10-20); Bilirubin,Total 0.7 mg/dl (0.2-1.0); Calcium 8.9 mg/dl (8.5-10.1); Creatinine Clr Calc Pharmacy 46.4 ml/min; Est GFR (African American) 93.8 ml/min; Est GFR (Non-African American) 80.9 ml/min; Globulin 3.4 gm/dl (2.5-4.0); Magnesium 2.3 mg/dl (1.7-2.4); Phosphorus 2.1 mg/dl (2.5-4.9); Potassium 3.9 mmol/L (3.5-5.1); Total Protein 6.4 gm/dl (6.0-8.3)
[2022-09-25] MEDS: MULTIVITAMIN CHEWABLE TAB PO SCH (07:15)
[2022-09-25] MEDS: ENALAPRILAT 0.625 MG in SYRINGE 9.5 ML IV SCH (09:46)
[2022-09-25] MEDS ORDERED: POTASSIUM PHOSPHATE 9 MMOL in SODIUM CHLORIDE 0.9% 250 ML IV ONE (10:00)
--- NOTE | 2022-09-25 11:06 | Anesthesiology Consultation ---
Date of Service September 25, 2022 Assessment & Plan (1) Encounter for pre-operative examination: Chart Review Chart Review: Pending: Refer to Additional Notes / Consult section (SpO2 89 on 2 L NC. BP 91/42 Patient to be evaluated on day of procedure by anesthesiologist) and Patient NOT seen in Pre Admission Testing Consults Requested none History Surgery Operation Date: 09/26/22 09:45 Proposed Procedures p Esophagogastroduodenoscopy with - Iglesia Stovall DO s Gastric Tube Placement Possible Open - Iglesia Stovall DO Height/Weight Height: 5 ft 3 in Weight: 46.9 kg Allergies Allergy/AdvReac Type Severity Reaction Status Date / Time Cephalosporins Allergy Intermediate RASH Verified 09/19/22 14:57 cefazolin Allergy Unknown UNKNOWN Verified 09/19/22 14:57 donepezil [From Aricept] Allergy Unknown Unknown Verified 09/19/22 14:57 adhesive tape Allergy Unknown Verified 09/19/22 14:57 amlodipine [From Norvasc] Allergy Edema Verified 09/19/22 14:57 Sulfa (Sulfonamide Allergy Unknown Verified 09/19/22 14:57 Antibiotics) Medications Home Medications Medication Instructions Recorded Confirmed Last Taken aspirin 81 mg tablet,delayed 81 mg PO DAILY 10/21/18 09/19/22 Unknown release (Aspir-) pediatric multivitamin no.7-folic 1 tab PO DAILY 10/21/18 09/19/22 Unknown acid 100 mcg chewable tablet (Flintstones Tab Chew) acetaminophen 500 mg tablet 500 mg PO Q6H PRN Pain 09/05/20 09/19/22 Unknown (Tylenol Extra Strength) lisinopril 5 mg tablet 5 mg PO DAILY #90 tabs 07/11/22 09/19/22 08/30/22 cinacalcet 30 mg tablet 30 mg PO DAILY #30 tabs 08/27/22 09/19/22 08/30/22 sodium chloride 1 gram tablet 1 g PO BID 30 days #60 tabs 09/02/22 09/19/22 Unknown escitalopram oxalate 5 mg tablet 5 mg PO HS 09/19/22 09/19/22 Unknown Active Medications Generic Name Dose Route Start Last Admin Trade Name Freq PRN Reason Stop Dose Admin Acetaminophen 1,000 mg 09/19/22 21:00 09/24/22 15:02 Acetaminophen 500 Mg Tab PO 10/19/22 20:59 1,000 mg TID LAVINIA Administration Aspirin 81 mg 09/20/22 09:00 09/24/22 09:13 Aspirin 81 Mg Ectab PO 10/20/22 08:59 81 mg DAILY LAVINIA Administration Cinacalcet 30 mg 09/20/22 09:00 09/24/22 09:13 Cinacalcet Hcl 30 Mg Tab PO 10/20/22 08:59 30 mg DAILY LAVINIA Administration Escitalopram Oxalate 5 mg 09/19/22 21:00 09/23/22 20:41 Escitalopram Oxalate 10 Mg Tab PO 10/19/22 20:59 5 mg HS LAVINIA Administration Hydralazine HCl 10 mg 09/23/22 21:32 09/23/22 21:30 Hydralazine Hcl 20 Mg/Ml Vial IV 10/23/22 21:31 10 mg Q6R PRN Administration SBP >185 or DBP >95 Prochlorperazine 5 mg/ Syringe 5 mls @ 5 mls/min 09/21/22 17:49 09/21/22 21:06 IV 10/21/22 17:48 5 mls/min Q6H PRN Administration Nausea And Vomiting Acetaminophen 650 mg/ EMPTY 65 mls @ 400 mls/hr 09/24/22 22:00 09/25/22 07:10 BAG IV 10/24/22 21:59 Infused Q8 LAVINIA Infusion Potassium Phosphate 9 mmol/ 253 mls @ 88 mls/hr 09/25/22 10:00 09/25/22 10:40 Sodium Chloride IV 09/25/22 12:52 88 mls/hr NOW ONE Administration Lisinopril 5 mg 09/24/22 09:00 09/24/22 08:07 Lisinopril 5 Mg Tab PO 10/24/22 08:59 5 mg QAM LAVINIA Administration Methylnaltrexone Doucette 8 mg 09/23/22 17:30 09/23/22 18:36 Methylnaltrexone Doucette 12 Mg/0.6 Ml Vial SQ 09/25/22 17:31 8 mg Q2D LAVINIA Administration Morphine Sulfate 2 mg 09/24/22 20:03 09/25/22 06:03 Morphine Sulfate 2 Mg/Ml Carp IV 10/08/22 20:02 2 mg Q4 PRN Administration Moderate Pain Multivitamins/Folic Acid/Vitamin C 1 tab 09/20/22 09:00 09/25/22 07:15 Multivitamin Chewable Tab PO 10/20/22 08:59 Not Given DAILY LAVINIA Ondansetron HCl 4 mg 09/20/22 12:58 09/24/22 02:36 Ondansetron Inj 2 Mg/Ml 2 Ml Vial IV 10/20/22 12:57 4 mg Q6H PRN Administration Nausea And Vomiting Oxycodone HCl 2.5 mg 09/19/22 17:24 09/24/22 06:26 Oxycodone Hcl Ir 5 Mg Tab (Immediate Release) PO 10/03/22 17:23 2.5 mg Q4H PRN Administration Pain Sodium Chloride 1 gm 09/19/22 17:24 09/24/22 09:13 Sodium Chloride 1 Gm Tablet PO 10/19/22 17:23 1 gm BID LAVINIA Administration Past Medical History Medical History Acoustic neuroma Anemia Depression Gait disturbance Hearing loss Hx of cataract Hypercalciuria Hypertension Hypertensive urgency Hypokalemia Osteoporosis SIADH (syndrome of inappropriate ADH production) Vitamin D deficiency Past Family History Family History Aunt Breast cancer Brother Colorectal cancer Heart problem Mother Heart problem Father Heart problem Sister Multiple sclerosis Other Family history non-contributory Denies family history of Ovarian cancer Prostate cancer Myocardial infarction Past Surgical History Surgical History History of craniotomy excision of acoustic neuroma Hx of cataract surgery Hx of cholecystectomy Hx of hysterectomy Hx of total knee replacement Social History Smoking Status: Never smoker Do You Dip or Chew Tobacco: No Hx Alcohol Use: No Hx Substance Use: No Physical Exam Vital Signs Last Vital Signs Temp 36.7 C 09/25/22 07:38 Pulse 100 H 09/25/22 07:38 Resp 18 09/25/22 07:38 BP 91/42 L 09/25/22 07:38 Pulse Ox 89 L 09/25/22 10:41 O2 Del Method 09/25/22 09:58 O2 Flow Rate 2 09/25/22 09:58 Testing Laboratory Results 09/25/22 05:44 09/25/22 05:44 Urine Color Yellow 09/19/22 12:04 Urine Appearance Cloudy (Clear) A 09/19/22 12:04 Urine pH 8.0 (4.5-7.5) H 09/19/22 12:04 Ur Specific [place] 1.016 (1.000-1.030) 09/19/22 12:04 Urine Protein Trace (Negative) H 09/19/22 12:04 Urine Glucose (UA) Negative (Negative) 09/19/22 12:04 Urine Ketones 1+ (Negative) H 09/19/22 12:04 Urine Nitrite Negative (Negative) 09/19/22 12:04 Ur Leukocyte Esterase Negative (Negative) 09/19/22 12:04 Urine WBC (Auto) 0 /hpf (0-5) 09/19/22 12:04 Urine RBC (Auto) 0-4 /hpf (0-4) 09/19/22 12:04 U Hyaline Cast (Auto) 1-5 /lpf (0-5) 09/19/22 12:04 U Epithel Cells (Auto) 5-10 /lpf (0-5) H 09/19/22 12:04 Urine Bacteria (Auto) Negative (Negative) 09/19/22 12:04 Electrocardiogram Date: 09/24/22 Findings: + T wave inversion (lateral lead) and + ST @ (103 with PACs) low voltage QRS, anterior infarct age undetermined Chest X-Ray Date: 09/19/22 XR chest 1V portable HISTORY: 82 years-old Female weakness acute weakness COMPARISON: Chest radiograph 08/30/2022 TECHNIQUE: Semierect AP view of the chest FINDINGS: The cardiomediastinal and hilar silhouettes are within normal limits. No pneumothorax, pleural effusion, airspace consolidation or overt pulmonary edema. Unchanged linear scarring versus atelectasis of the left lung base. Degenerative changes of the shoulders and spine. Chronic deformity of the anterior left fourt h and fifth ribs. IMPRESSION: No acute process. ACT 112: Negative or not required by law. The above report was generated using voice recognition software. It may contain grammatical, syntax or spelling errors. Electronically signed by: Carlos Lazcano M.D. 09/19/2022 11:09 AM Dictated:09/19/221107 Transcribed: 09/19/221107 Echocardiogram Date: 07/05/22 EF: 60-65 Other Findings: + LVH (mild) Valvular Disease: + (mild) mild TR
--- NOTE | 2022-09-25 11:06 | Orthopedic Progress Note ---
Date of Service September 25, 2022 Assessment & Plan (1) Closed sacral fracture: Plan: WBAT with walker assistance Donut pillow for comfort. PT/OT Pain control with PO medications Appreciate Medicine service Follow up as scheduled in approximately [address] Fernandes Admission and Anticipated Discharge Date Admission Date: September 19, 2022 Subjective No change today, states that back is okay. not present at bedside currently. Results & Data ([facility]) Vital Signs (Past 12 Hours) Vital Signs Temp Pulse Resp BP Pulse Ox O2 Del Method O2 Flow Rate 09/25/22 10:41 89 L 09/25/22 09:58 Nasal Cannula 2 09/25/22 07:38 36.7 C 100 H 18 91/42 L 94 Nasal Cannula 2 (1) Closed sacral fracture Encounter type: initial encounter Zone of sacrum fracture: unspecified portion of sacrum Qualified Code(s): S32.10XA - Unspecified fracture of sacrum, initial encounter for closed fracture
--- NOTE | 2022-09-25 11:22 | XRay Report ---
XR chest 1V portable CLINICAL HISTORY: Hypoxia. concern for aspiration TECHNIQUE: Single frontal radiograph of the chest was obtained. Comparison: Comparison is made to chest radiograph 09/19/2022 FINDINGS: No lines and tubes are seen. The cardiomediastinal silhouette is normal. Bilateral lower lung airspac e opacities are seen. No evidence of pleural effusion or pneumothorax. Chronic deformities of the ant erior left fourth and fifth ribs. IMPRESSION: Interval development of bilateral lower lung airspace opacities may represent aspiration, atelectasis , and/or pneumonia. ACT 112: Negative or not required by law. Electronically signed by: Mihai Angela M.D. 09/25/2022 11:20 AM
[2022-09-25] MEDS ORDERED: PIPERACILLIN/TAZOBACTAM 3.375 GM in DEXTROSE 5% 100 ML IV ONE (12:15)
--- NOTE | 2022-09-25 14:45 | Hospitalist Progress Note ---
Date of Service September 25, 2022 Assessment & Plan (1) Aspiration into airway: Plan: Per RN and DAY CARE PROVIDER evaluation, she coughs with any liquids. Video swallow on 09/23 was terrible with jonas aspiration of thin liquids. Posterior phargynx was so weak that pudding would not go down, then using thin liquids to flush it, she aspirated again. - Strict NPO - PPN consult ordered - Gen surgery consulted for PEG tube. Patient had one previously after right schwannoma resection, and patient and family willing to have it done again. -> Plan for PEG tomorrow with general surgery -> On Friday, while deciding on PEG tube or not, did allow patient to have some limited diet to attempt to get some nutrition. Overnight, had fever and increased labored breathing, so strict NPO was made. CXR shows aspiration. -> Started Zosyn for presumed aspiration pneumonia. (2) Sacral fracture: Plan: CT a/p on 09/19 showed "Acute comminuted nondisplaced sacral fracture." - Pain control PRN * Acetaminophen 1g PO TID * Low dose oxycodone 2.5mg PO q4h PRN - PT/OT - Orthopedics consulted -> Weight-bearing as tolerated. Follow up in 2 weeks. (3) Nausea: Plan: Has had nausea throughout stay which I thought was more due to constipation. Relistor started as no oral options available given aspiration. However, more pain today. - Repeat CT a/p pending on 09/25 (4) Hearing loss: Plan: Patient hearing loss is chronic and communicates with family members using iPad dictator. (5) Acute hyponatremia: Plan: Na generally holds in high 120 - 130 range. Stable. - Continue NaCl 1g PO BID when able. - Fluid restriction as able, though will need to loosen with PPN. - Follow BMP (6) SIADH (syndrome of inappropriate ADH production): Plan: As above. (7) NF2 (neurofibromatosis 2): Plan: Noted. No inpatient needs (8) Hyperparathyroidism: Plan: Calcium stable. - Continue cinacalcet when able. (9) Hypertension: Plan: BP was as high as 205/90. - Restarted lisinopril on 09/24, but now stopped for NPO. - For now, monitor BP. Somewhat lower today in context of aspiration pneumonia and some dehydration from poor PO intake. Plan DVT ppx: SCDs, Lovenox 40 mg SQ daily Admission and Anticipated Discharge Date Admission Date: September 19, 2022 Subjective More pain today. Nausea and emesis again today. Also with more labored breathing. Reports no fevers/chills, chest pain. Physical Exam Constitutional: + acute distress Eyes: EOM intact bilaterally; no conjunctival abnormality ENMT: external ear and nose normal, oropharynx normal Neck: trachea midline, no thyromegaly normal visual inspection Respiratory: + labored breathing and + cough; no respiratory distress Auscultation: + rhonchi Cardiovascular: RRR, no murmur, no edema Gastrointestinal (Abdomen): Inspection/Auscultation: abdomen normal to inspection; abdomen not distended Musculoskeletal: no cyanosis or clubbing, extremities motor strength 5/5 Skin: no rashes, warm and dry Neurologic: moves all extremities and awake Psychiatric: Orientation: alert, oriented to person and cooperative Results & Data Results & Data ([facility]) Vital Signs (Past 12 Hours) Vital Signs Temp Pulse Resp BP Pulse Ox O2 Del Method O2 Flow Rate 09/25/22 10:41 89 L 09/25/22 09:58 Nasal Cannula 2 09/25/22 07:38 36.7 C 100 H 18 91/42 L 94 Nasal Cannula 2 PG Care Time/CCT Total # of Minutes Spent Total Time Spent with Patient: Total time spent is greater than 50% in coordination of care (as documented) at patient's floor/unit and/or counseling patient: Coding Level of Care Code 67948 Subseq Hosp Care Lvl 3 Diagnoses Aspiration into airway T17.908A Sacral fracture S32.10XA Nausea R11.0 Hearing loss H91.90 Acute hyponatremia E87.1 SIADH (syndrome of inappropriate ADH production) E22.2 NF2 (neurofibromatosis 2) Q85.02 Hyperparathyroidism E21.3 Hypertension I10
[2022-09-25] MEDS ORDERED: OPTIRAY 350 100ml IV ONE (15:36)
--- NOTE | 2022-09-25 15:39 | Pharmacy Report ---
Pharmacy PN Initial Consult - Date of Service September 25, 2022 - Scope Pharmacy has been consulted to manage parenteral nutrition orders and order appropriate labs. As part of the Nutrition Support Team guidelines, pharmacy will work in conjunction with dietary when determining the patients caloric needs. - Subjective The patient is a 82 year old F admitted on 09/19/22 14:15 for PELVIS FX,GENERALIZED WEAKNESS. Patient is to receive parenteral nutrition for aspiration/limited PO intake. Pertinent PMH: - Objective Height: 5 ft 3 in Weight: 46.9 kg Diet: NPO (PEG to be placed) Intake & Output (Last 24Hrs): Intake & Output 09/23/22 09/24/22 09/25/22 09/26/22 06:59 06:59 06:59 06:59 Intake Total 420 / 420 60 / 60 565 / 565 433 / 433 Output Total 600 / 600 800 / 800 800 / 800 300 / 300 Balance -180 / -180 -740 / -740 -235 / -235 133 / 133 Weight 46.9 kg 46.9 kg Laboratory Data (Last 24 Hrs):: 09/25/22 05:44 Sodium 142 Potassium 3.9 Chloride 105 Carbon Dioxide 28 BUN 36 H Creatinine 0.68 Glucose 113 H Calcium 8.9 Phosphorus 2.1 L Magnesium 2.3 Total Bilirubin 0.7 AST 32 ALT 32 Alkaline Phosphatase 192 H Albumin 3.0 L Triglycerides 89 Nutrition Assessment:: Please refer to the Notes section of the EMR for the most recent or first assist registered nurse note. - Plan For day 1 of PN administration, the following will be ordered: Macronutrients Amino acids 41 grams/day Dextrose 48 grams/day Lipids 40 grams/day Micronutrients Sodium chloride 30 mEq Sodium acetate 50 mEq Potassium phosphate 21 mMol Calcium gluconate 4.65 mEq Multivitamins 10 mL Trace Elements 10 mL Additional additives: thiamine 100 mg Total volume 1033 mL to be infused over 24 hrs will provide 756 kcal/day Final osmolarity 845 mOsm/L (maximum for PPN is 900 mOsm/L) Labs to be ordered per PN order protocol Pharmacy will follow and adjust parenteral nutrition orders on a daily basis. Thank you.
--- NOTE | 2022-09-25 15:59 | CT Scan Report ---
CT OF THE CHEST WITHOUT IV CONTRAST CLINICAL HISTORY: Aspiration. COMPARISON STUDY: Chest radiograph September 19, 2022 and September 25, 2022. CT DOSE: 182.31 mGycm TECHNIQUE: Axial images of the chest were obtained without IV contrast. Images were reviewed in the axial, sagittal, and coronal planes. IV contrast was not administered for this examination. Automat ed exposure control was utilized for the study. A dose lowering technique was utilized adhering to t he principles of ALARA. FINDINGS: No enlarged axillary, mediastinal or hilar lymph nodes are present. The size of the heart is normal. There is no significant pericardial effusion. A trace left pleural effusion is noted. Ther e is no pneumothorax. Near complete opacification of the left lower lobe is noted with consolidation, new since abdominal CT of September 19, 2022. This contains hyperdense material. Extensive secretions within the left lower lobe segmental bronchi are noted. There is also moderate right lower lobe conso lidation and airspace opacities within the deep dependent aspects of the upper lobes. The findings re present aspiration/aspiration pneumonitis. Old left-sided rib fractures are present. There is a mild compression deformity of the inferior endplate of T12 which is age indeterminate. Abdomen and pelvis CT will be reported separately. IMPRESSION: 1. Extensive bilateral lower lobe consolidation, greater on the left. Near complete opacification of the left lower lobe which contains hyperdense material and secretions within the lower lobe bronchi. The findings represent aspiration/aspiration pneumonitis which is new since CT of September 19, 2022. 2. Trace left pleural effusion. ACT 112: Negative or not required by law. Electronically signed by: Benny Jarrell M.D. 09/25/2022 3:57 PM
[2022-09-25] MEDS ORDERED: PERIPHERAL TPN IV SCH (16:00)
[2022-09-25] MEDS ORDERED: AMINO ACIDS 4.25% IV SCH (16:00)
[2022-09-25] MEDS ORDERED: CLINOLIPID 20% IV FAT EMULSION 200 ML IV SCH (16:00)
[2022-09-25] MEDS ORDERED: D5W IV SCH (16:00)
--- NOTE | 2022-09-25 16:02 | CT Scan Report ---
CT SCAN OF THE ABDOMEN AND PELVIS WITH IV CONTRAST CLINICAL HISTORY: Generalized abdominal pain. Vomiting. COMPARISON STUDY: Abdominal CT dated 09/19/2022. TECHNIQUE: Following the IV administration of 86 cc of Optiray 350, CT scan of the abdomen and pelvis is performed from the lung bases to the proximal femora. Images are reviewed in the axial, sagittal, and coronal planes. IV contrast was administered without complication. A dose lowering technique was utilized adhering to the principles of ALARA. The examination is compromised by motion artifact. The examination is degraded by motion artifact. There is streak artifact from retained barium in the col on. CT DOSE: 361.56 mGycm FINDINGS: Lung bases: The heart is normal in size noting trace pericardial effusion. There are coronary artery calcifications. A hiatal hernia is noted. There are small pleural effusions, left larger than right w ith dense dependent airspace consolidation. This is new from 09/19/2022. Liver: The contrast-enhanced liver is normal in size, contour, and attenuation. There is no intrahepa tic biliary ductal dilatation. Hepatic veins and portal veins are patent. Gallbladder: Contracted versus surgically absent. Spleen: Normal in size and attenuation. Pancreas: Moderately atrophic and grossly unremarkable. Adrenal glands: There is nonspecific thickening of the adrenal glands. Kidneys: The contrast-enhanced kidneys demonstrate mild cortical atrophy and are without hydronephros is. The kidneys enhance symmetrically. Right renal cysts measure up to 12 mm. Abdominal vasculature: There is advanced atherosclerotic calcification and mild ectasia of the abdomi nal aorta. Bowel: There is moderate sigmoid diverticulosis without CT evidence of acute diverticulitis. Retained barium is noted in the colon. No bowel obstruction is seen. The appendix is not visualized due to s ignificant streak artifact from barium in the right colon Peritoneum: There is no intraperitoneal free air or abdominal ascites. Lymphadenopathy: None. Pelvic viscera: The bladder is decompressed and a Butler catheter. The wall appears thickened and hype remic and there are foci of intraluminal gas. The uterus is surgically absent. No adnexal lesion is s een. There is a fat-containing right groin hernia. Skeletal structures: The skeletal structures are osteopenic. Again seen is a comminuted fracture of t he sacrum with surrounding hemorrhage. This is located at the level of S3. There is severe chronic de formity of the right hip joint/proximal femur, with a shallow acetabulum and advanced arthritic jones e. 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 Again seen is an acute to subacute appearing inferior endplate com pression fracture of T12. Healed bilateral rib fractures are noted. No lytic or blastic lesions are s een. IMPRESSION: 1. There are trace pleural effusions with dense dependent airspace consolidation. The appearance favo rs pneumonia/aspiration pneumonitis and clinical correlation will be required. Radiographic follow-up to resolution is recommended. 2. Again seen is a comminuted fracture of the sacrum with surrounding hemorrhage. 3. Again seen is an acute to subacute appearing inferior endplate compression deformity of T12. 4. Colonic diverticulosis without CT evidence of acute diverticulitis. 5. Additional findings as above. ACT 112: Negative or not required by law. Electronically signed by: Jan Perry M.D. 09/25/2022 4:01 PM
[2022-09-25] MEDS: ONDANSETRON INJ 2 MG/ML 2 ML VIAL IV PRN (17:19)
[2022-09-25] MEDS: PIPERACILLIN/TAZOBACTAM 3.375 GM in DEXTROSE 5% 100 ML IV SCH ×2 (17:19→23:45)
[2022-09-25] MEDS: METHYLNALTREXONE BROMIDE 12 MG/0.6 ML VIAL SQ SCH (17:22)
[2022-09-25] MEDS ORDERED: LANTUS PER UNIT CHARGE SQ SCH (21:00)
[2022-09-26] MEDS ORDERED: STOP CLINOLIPID ONE
[2022-09-26] MEDS: hydrALAZINE HCL 20 MG/ML VIAL IV PRN (01:00)
--- NOTE | 2022-09-26 05:14 | Electrocardiogram Report ---
Test Reason : Blood Pressure : / mmHG Vent. Rate : 103 BPM Atrial Rate : 103 BPM P-R Int : 114 ms QRS Dur : 078 ms QT Int : 320 ms P-R-T Axes : 078 102 143 degrees QTc Int : 419 ms Sinus tachycardia with Premature atrial complexes Rightward axis Low voltage QRS Cannot rule out Anterior infarct , age undetermined Nonspecific T wave abnormality Abnormal ECG When compared with ECG of 19-SEP-2022 10:12, Premature atrial complexes are now Present Questionable change in QRS axis T wave inversion now evident in Lateral leads Confirmed by Wesly Owens ([id number]) on 09/26/2022 5:14:09 AM Referred By: REFERRED SELF Confirmed By:Wesly Owens
[2022-09-26 06:29] LABS: Hematocrit (blood only) 32.8 % (34.1-44.9); Mean Corpuscular Hemoglobin 28.9 pg (25.0-34.0); Mean Corpuscular Hgb Conc 33.5 g/dL (32.0-36.0); Mean Corpuscular Volume 86.3 fL (80.0-100.0); Mean Platelet Volume 9.8 fL (9.4-12.3); Platelet Count 358 K/uL (130-400); RDW Coefficient of Variation 14.8 % (11.5-14.5); RDW Standard Deviation 46.8 fL (36.4-46.3); White Blood Count 14.09 K/ul (4.8-10.8)
[2022-09-26] MEDS: ACETAMINOPHEN 10MG/ML Custom 650 MG in EMPTY BAG 0 ML IV SCH ×3 (06:29→21:33)
[2022-09-26] MEDS: ONDANSETRON INJ 2 MG/ML 2 ML VIAL IV PRN (06:29)
[2022-09-26 06:48] LABS: Calcium 8.7 mg/dl (8.5-10.1); Creatinine Clr Calc Pharmacy 63.1 ml/min; Est GFR (African American) 103.7 ml/min; Est GFR (Non-African American) 89.5 ml/min; Magnesium 2.4 mg/dl (1.7-2.4); Phosphorus 2.3 mg/dl (2.5-4.9); Potassium 3.6 mmol/L (3.5-5.1)
[2022-09-26] MEDS: MULTIVITAMIN CHEWABLE TAB PO SCH (06:54)
[2022-09-26] MEDS ORDERED: PROPOFOL IV EMULSION 10 MG/ML 20 ML VIAL IV ONE (08:00)
[2022-09-26] MEDS ORDERED: fentaNYL citrate 100 MCG/2 ML VIAL ONE (08:00)
[2022-09-26] MEDS ORDERED: LIDOCAINE 2% MPF LOCAL 5 ML VIAL INFIL ONE (08:00)
[2022-09-26] MEDS ORDERED: KETAMINE 50 MG/5 ML SYRINGE ONE (08:01)
[2022-09-26] MEDS: PIPERACILLIN/TAZOBACTAM 3.375 GM in DEXTROSE 5% 100 ML IV SCH ×2 (08:31→16:55)
[2022-09-26] MEDS ORDERED: ATROPINE SULFATE 0.1 MG/ML 10ML SYR IV PRN (09:58)
[2022-09-26] MEDS ORDERED: ONDANSETRON INJ 2 MG/ML 2 ML VIAL IV PRN (09:58)
--- NOTE | 2022-09-26 09:58 | History & Physical Bridge Note ---
Date of Service September 26, 2022 History & Physical Bridge Note I have examined the patient, reviewed the History & Physical and in the interval since the performance of the History & Physical I have noted the following changes of clinical significance: no changes noted
[2022-09-26] MEDS ORDERED: LIDOCAINE 1% LOCAL 20 ML VIAL INJ ONE (10:38)
--- NOTE | 2022-09-26 10:52 | Operative Report ---
PG Post Operative Report Pre & Post Diagnosis Operation Date: 09/26/22 09:45 Pre-Op Diagnosis: Need forFeeding Tube Post-Op Diagnosis: Need forFeeding Tube; hemorrhagic gastritis; hiatal hernia I identified the patient and participated in the time-out.: Yes Procedure Operation Date: 09/26/22 09:45 Actual Procedures p Esophagogastroduodenoscopy with Gastric Biopsy - Iglesia Stovall DO s Gastric Tube Placement - Iglesia Stovall DO Surgeon Iglesia Stovall DO [employer] star [place] Estimated Blood Loss 3 Findings Consistent with Post-Op Diagnosis Specimens gastric body biopsy Description of Procedure After informed consent was obtained the patient was taken to the operating room and placed in supine position. IV sedation was administered by anesthesia and titrated to effect. After adequate sedation a bite block was placed and the patient was placed in a left lateral Gaines's position. The gastroscope was inserted into the oropharynx and the proximal esophagus without difficulty. Keeping lumen reviewed at all times scope was passed down the esophagus. There was a small to moderate sized hiatal hernia. I was able to easily pass through it into the stomach itself. There was hemorrhagic gastritis throughout the entire lining of the stomach. There was no visible acute ulceration and no fresh blood. I passed the scope through the pylorus and the first second third portion of the duodenum. There was no blood in the duodenum. The scope was withdrawn back into the distal stomach and retroflexed upon itself. There was bleeding in the proximal stomach as well. There was no evidence of ischemia from the hiatal hernia. Several cold biopsies were taken of the body of the stomach and sent to pathology. We were able to readily transilluminate through the distal stomach through the abdominal wall. This area was sterilely prepped and draped by my assistant vice president. Several cc of lidocaine were used to create a skin wheal and a small incision was made. A needle with a sheath was advanced easily into the lumen of the stomach under direct vision. The needle was removed. A guidewire was advanced through the sheath. I used a snare to pull the wire out through the oropharynx. It was connected to the feeding tube and the wire used to pull the feeding tube down into the distal stomach and out through the anterior abdominal wall. I repeated the endoscopy to ensure proper placement of the tube. It was in good position. I decompressed the stomach and withdrew the scope. The abdominal wall button was placed. The patient was awakened and transferred to recovery in stable condition. My physician assistant vice president was present for the entire case was instrumental in assistance with placing the tube. I attest to the content of the Intraoperative Record and any orders documented therein. Any exceptions are noted below.
--- NOTE | 2022-09-26 11:49 | Anesthesiology Progress Note ---
Date of Service September 26, 2022 Anesthesia Post Procedure Vital Signs Vital Signs: Temp Pulse Pulse Resp BP Pulse Ox O2 Del Method 09/26/22 11:20 92 H 21 103/54 L 96 Nasal Cannula 09/26/22 11:30 36.5 C 96 H 19 114/50 L 96 Nasal Cannula 09/26/22 11:10 91 H 20 100/47 L 98 Oxymask 09/26/22 11:01 36.5 C 99 H 16 75/42 L 95 Oxymask 09/26/22 09:20 36.7 C 88 20 170/75 H 99 Nasal Cannula 09/26/22 07:43 Nasal Cannula 09/26/22 07:37 36.4 C L 81 17 163/79 H 97 Nasal Cannula 09/26/22 02:30 158/79 H 09/25/22 23:56 Nasal Cannula 09/25/22 23:27 36.7 C 87 20 188/93 H 95 Nasal Cannula 09/25/22 16:11 36.8 C 95 H 18 162/79 H 95 Nasal Cannula O2 Flow Rate 09/26/22 11:20 4 09/26/22 11:30 4 09/26/22 11:10 6 09/26/22 11:01 6 09/26/22 09:20 4 09/26/22 07:43 4 09/26/22 07:37 2 09/26/22 02:30 09/25/22 23:56 4 09/25/22 23:27 09/25/22 16:11 4 Pain Intensity Lumbar: Pain Intensity: 7 Transfer of Care Handoff Completed per policy Notes Mental Status: alert / awake / arousable Patient Amnestic to Procedure: Yes Nausea / Vomiting: adequately controlled Pain: adequately controlled Airway Patency, RR, SpO2: stable & adequate BP & HR: stable & adequate Hydration State: stable & adequate Anesthetic Complications: no major complications apparent
--- NOTE | 2022-09-26 15:26 | Hospitalist Progress Note ---
Date of Service September 26, 2022 Assessment & Plan (1) Aspiration into airway: Plan: She appears to have bilateral aspiration pneumonia and is on Zosyn. PEG tube was placed today, September 26. Will initiate tube feedings and stop parenteral nutrition. Video swallow on 09/23 was markedly abnormal with evidence of aspiration. (2) Sacral fracture: Plan: CT a/p on 09/19 showed "Acute comminuted nondisplaced sacral fracture." Pain control PRN. Low dose oxycodone 2.5mg PO q4h PRN. PT/OT. Orthopedics consulted -> Weight-bearing as tolerated. Follow up in 2 weeks. (3) Nausea: Plan: Symptomatic treatment. Repeat CT a/p was obtained on 09/25 (4) Hearing loss: Plan: Patient hearing loss is chronic and communicates with family members using iPad dictator. (5) Acute hyponatremia: Plan: Na generally holds in high 120 - 130 range. Stable. Continue NaCl 1g PO BID when able. 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 (7) NF2 (neurofibromatosis 2): Plan: Noted. No inpatient needs (8) Hyperparathyroidism: Plan: Calcium stable. Continue cinacalcet when able. (9) Hypertension: Plan: Continue current medications. Adjust dosing as needed Plan DVT ppx: SCDs, Lovenox 40 mg SQ daily Disposition: To be determined Admission and Anticipated Discharge Date Admission Date: September 19, 2022 Subjective Appears chronically ill. She is nonverbal with me. She had PEG tube placement earlier today, September 26. Nutrition consult placed for tube feeding initiation. She remains on Zosyn for what appears to be bilateral aspiration pneumonia. Review of Systems Review of Systems: Unable to obtain review of systems at this time Physical Exam Physical Exam: General-awake. Chronically ill-appearing. Nonverbal with me today. HEENT-head atraumatic and normocephalic, pupils equal and reactive to light, extraocular muscles intact Neck-no lymphadenopathy or thyromegaly, trachea midline Chest-bilateral rhonchi noted. No wheezing Cardiac-regular rate and rhythm, normal S1 and S2 Abdomen-PEG tube in place. Insertion site is unremarkable. Bowel sounds are active. Nondistended Extremities-no cyanosis, clubbing, or edema Neuro-aphasia with mild right hemiparesis noted Psych-cannot assess at this time Results & Data Results & Data ([facility]) Vital Signs (Past 12 Hours) Vital Signs Temp Pulse Pulse Resp BP Pulse Ox O2 Del Method 09/26/22 14:40 37.1 C 96 H 18 104/63 95 Room Air 09/26/22 13:45 36.3 C L 91 H 18 110/65 96 Room Air 09/26/22 12:51 36.5 C 99 H 18 123/60 97 Nasal Cannula 09/26/22 12:17 36.3 C L 95 H 18 123/66 96 Nasal Cannula 09/26/22 11:45 36.6 C 95 H 16 117/67 93 Nasal Cannula 09/26/22 11:20 92 H 21 103/54 L 96 Nasal Cannula 09/26/22 11:30 36.5 C 96 H 19 114/50 L 96 Nasal Cannula 09/26/22 11:10 91 H 20 100/47 L 98 Oxymask 09/26/22 11:01 36.5 C 99 H 16 75/42 L 95 Oxymask 09/26/22 09:20 36.7 C 88 20 170/75 H 99 Nasal Cannula 09/26/22 07:43 Nasal Cannula 09/26/22 07:37 36.4 C L 81 17 163/79 H 97 Nasal Cannula O2 Flow Rate 09/26/22 14:40 09/26/22 13:45 09/26/22 12:51 4 09/26/22 12:17 4 09/26/22 11:45 4 09/26/22 11:20 4 09/26/22 11:30 4 09/26/22 11:10 6 09/26/22 11:01 6 09/26/22 09:20 4 09/26/22 07:43 4 09/26/22 07:37 2 Laboratory Results 09/26/22 05:38 09/26/22 05:38 PG Care Time/CCT Total # of Minutes Spent Total Time Spent with Patient: Total time spent is greater than 50% in coordination of care (as documented) at patient's floor/unit and/or counseling patient: Coding Level of Care Code 60540 Subseq Hosp Care Lvl 3 Diagnoses Aspiration into airway T17.908A Sacral fracture S32.10XA Nausea R11.0 Hearing loss H91.90 Acute hyponatremia E87.1 SIADH (syndrome of inappropriate ADH production) E22.2 NF2 (neurofibromatosis 2) Q85.02 Hyperparathyroidism E21.3 Hypertension I10
[2022-09-26] MEDS ORDERED: D5W IV SCH (16:00)
[2022-09-26] MEDS ORDERED: PERIPHERAL TPN IV SCH (16:00)
[2022-09-26] MEDS ORDERED: CLINOLIPID 20% IV FAT EMULSION 200 ML IV SCH (16:00)
[2022-09-26] MEDS ORDERED: AMINO ACIDS 4.25% IV SCH (16:00)
[2022-09-26] MEDS: D5W AND NSS 1,000 ML IV SCH (16:55)
[2022-09-26] MEDS: TUBE FEEDING WATER FLUSH PEG SCH ×2 (17:01→21:05)
[2022-09-26] MEDS: PANTOprazole 40 MG in SYRINGE 0 ML IV SCH (21:59)
[2022-09-27] MEDS ORDERED: STOP CLINOLIPID ONE
[2022-09-27] MEDS: PIPERACILLIN/TAZOBACTAM 3.375 GM in DEXTROSE 5% 100 ML IV SCH ×3 (00:24→17:05)
[2022-09-27] MEDS: TUBE FEEDING WATER FLUSH PEG SCH ×6 (00:27→21:13)
[2022-09-27] MEDS: MoRPHine SULFATE 2 MG/ML CARP IV PRN (04:15)
[2022-09-27] MEDS: D5W AND NSS 1,000 ML IV SCH ×2 (06:01→17:05)
[2022-09-27] MEDS: ACETAMINOPHEN 10MG/ML Custom 650 MG in EMPTY BAG 0 ML IV SCH ×3 (06:02→21:15)
[2022-09-27 06:50] LABS: Basophils # (auto) 0.03 K/uL (0-0.2); Basophils % (auto) 0.2 %; Eosinophils # (auto) 0.04 K/uL (0-0.50); Eosinophils % (auto) 0.3 %; Hematocrit (blood only) 26.7 % (34.1-44.9); Hemoglobin 8.7 g/dl (12.0-16.0); Immature Granulocytes # (auto) 0.59 K/uL (0.00-0.02); Immature Granulocytes % (auto) 4.4 %; Lymphocytes # (auto) 0.58 K/uL (1.2-3.4); Lymphocytes % (auto) 4.3 %; Mean Corpuscular Hemoglobin 29.3 pg (25.0-34.0); Mean Corpuscular Hgb Conc 32.6 g/dL (32.0-36.0); Mean Corpuscular Volume 89.9 fL (80.0-100.0); Mean Platelet Volume 9.8 fL (9.4-12.3); Monocytes # (auto) 0.56 K/uL (0.24-0.82); Monocytes % (auto) 4.2 %; Neutrophils # (auto) 11.54 K/uL (1.4-6.5); Neutrophils % (auto) 86.6 %; Platelet Count 328 K/uL (130-400); RDW Coefficient of Variation 14.9 % (11.5-14.5); RDW Standard Deviation 48.8 fL (36.4-46.3); Red Blood Count 2.97 M/uL (3.93-5.22); White Blood Count 13.34 K/ul (4.8-10.8)
[2022-09-27 07:11] LABS: Calcium 7.8 mg/dl (8.5-10.1); Creatinine Clr Calc Pharmacy 61.9 ml/min; Est GFR (African American) 103.1 ml/min; Est GFR (Non-African American) 88.9 ml/min; Magnesium 2.1 mg/dl (1.7-2.4); Phosphorus 2.4 mg/dl (2.5-4.9); Potassium 3.5 mmol/L (3.5-5.1)
[2022-09-27] MEDS: MULTIVITAMIN CHEWABLE TAB PO SCH (08:21)
--- NOTE | 2022-09-27 09:19 | Surgery Progress Note ---
Date of Service September 27, 2022 Assessment & Plan (1) Aspiration into airway: Plan: POD#[address] PEG in place, no issues with site noted. c/d/i G-tube okay for immediate use for meds/feeds We will sign off, please call with questions/concerns Admission and Anticipated Discharge Date Admission Date: September 19, 2022 Subjective patient resting in bed Physical Exam Gastrointestinal (Abdomen): Percussion/Palpation: abdomen soft PEG in place, currently capped. site without issues Results & Data ([facility]) Vital Signs (Past 12 Hours) Vital Signs Temp Pulse Resp BP BP Pulse Ox O2 Del Method 09/27/22 07:50 36.2 C L 71 14 109/67 94 Nasal Cannula 09/27/22 02:39 36.5 C 85 16 133/66 99 Nasal Cannula 09/26/22 22:30 36.4 C L 72 16 116/53 L 97 Nasal Cannula O2 Flow Rate 09/27/22 07:50 4 09/27/22 02:39 4 09/26/22 22:30 4 PG Care Time/CCT Total # of Minutes Spent Total Time Spent with Patient: Total time spent is greater than 50% in coordination of care (as documented) at patient's floor/unit and/or counseling patient: Coding Level of Care Code None Diagnoses Aspiration into airway T17.908A
[2022-09-27] MEDS: PANTOprazole 40 MG in SYRINGE 0 ML IV SCH ×2 (09:22→21:10)
[2022-09-27] MEDS: MULTI VIT W/MINERALS LIQUID 15 ML UDP PEG SCH (09:22)
[2022-09-27] MEDS: PEPTAMEN 1.5 CAL 1,000 ML BAG PEG SCH (10:21)
[2022-09-27] MEDS: POTASSIUM CHLORIDE 20 MEQ/15 ML UDC PEG SCH (10:21)
--- NOTE | 2022-09-27 12:30 | XRay Report ---
SINGLE VIEW CHEST CLINICAL HISTORY: Aspiration pneumonia. FINDINGS: An AP, portable, upright chest radiograph is compared to chest x-ray and chest CT dated . The cardiomediastinal silhouette is unremarkable noting atherosclerotic calcification of the thoracic aorta. Left greater than right bibasilar airspace consolidation is similar to previous. Sma ll pleural effusions are noted. No pneumothorax is seen. The skeletal structures are osteopenic. Ther e are healed left-sided rib fractures. IMPRESSION: Left greater than right bibasilar airspace consolidation and small pleural effusions is s imilar to previous. ACT 112: Negative or not required by law. Electronically signed by: Jan Perry M.D. 09/27/2022 12:29 PM
--- NOTE | 2022-09-27 14:51 | Hospitalist Progress Note ---
Date of Service September 27, 2022 Assessment & Plan (1) Aspiration into airway: Plan: She has bilateral aspiration pneumonia and is on Zosyn. PEG tube was placed on September 26. Postoperative day #1 . She is now on tube feeding. Video swallow on 09/23 was markedly abnormal with evidence of aspiration. (2) Sacral fracture: Plan: CT a/p on 09/19 showed "Acute comminuted nondisplaced sacral fracture." Pain control PRN. Low dose oxycodone 2.5mg PO q4h PRN. PT/OT. Orthopedics consulted -> Weight-bearing as tolerated. Follow up in 2 weeks. (3) Nausea: Plan: Symptomatic treatment. Repeat CT a/p was obtained on 09/25 (4) Hearing loss: Plan: Patient hearing loss is chronic and communicates with family members using iPad dictator. (5) Acute hyponatremia: Plan: Na generally holds in high 120 - 130 range. Stable. Continue NaCl 1g PO BID when able. 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 Fluid restriction if it becomes necessary. (7) NF2 (neurofibromatosis 2): Plan: Noted. No inpatient needs (8) Hyperparathyroidism: Plan: Calcium stable. Continue cinacalcet when able. (9) Hypertension: Plan: Continue current medications. Adjust dosing as needed (10) Aspiration pneumonia: Plan: Continue intravenous Zosyn. Serial chest x-rays until clear. Plan DVT ppx: SCDs, Lovenox 40 mg SQ daily Disposition: To be determined Admission and Anticipated Discharge Date Admission Date: September 19, 2022 Subjective No significant change in clinical status. Her daughter is at the bedside. est x-ray obtained today, September 27, reviewed reveals no significant changes. She is receiving tube feedings per the recently placed PEG tube. Postoperative day #1 after PEG tube placement. She remains on intravenous Zosyn for the bilateral aspiration pneumonia. She continues to require 4 L of oxygen. Review of Systems Review of Systems: Unable to obtain review of systems at this time Physical Exam Physical Exam: General-awake. Chronically ill-appearing. Nonverbal with me today. HEENT-head atraumatic and normocephalic, pupils equal and reactive to light, extraocular muscles intact Neck-no lymphadenopathy or thyromegaly, trachea midline Chest-bilateral rhonchi noted. No wheezing Cardiac-regular rate and rhythm, normal S1 and S2 Abdomen-PEG tube in place. Insertion site is unremarkable. Bowel sounds are active. Nondistended Extremities-no cyanosis, clubbing, or edema Neuro-aphasia with mild right hemiparesis noted Psych-cannot assess at this time Results & Data Results & Data ([facility]) Vital Signs (Past 12 Hours) Vital Signs Temp Pulse Resp BP Pulse Ox O2 Del Method O2 Flow Rate 09/27/22 11:10 36.3 C L 81 16 131/62 100 Nasal Cannula 4 09/27/22 08:15 Nasal Cannula 4 09/27/22 07:50 36.2 C L 71 14 109/67 94 Nasal Cannula 4 Laboratory Results 09/27/22 06:14 09/27/22 06:14 PG Care Time/CCT Total # of Minutes Spent Total Time Spent with Patient: Total time spent is greater than 50% in coordination of care (as documented) at patient's floor/unit and/or counseling patient: Coding Level of Care Code 17238 Subseq Hosp Care Lvl 3 Diagnoses Aspiration into airway T17.908A Sacral fracture S32.10XA Nausea R11.0 Hearing loss H91.90 Acute hyponatremia E87.1 SIADH (syndrome of inappropriate ADH production) E22.2 NF2 (neurofibromatosis 2) Q85.02 Hyperparathyroidism E21.3 Hypertension I10 Aspiration pneumonia J69.0
[2022-09-28] MEDS: PIPERACILLIN/TAZOBACTAM 3.375 GM in DEXTROSE 5% 100 ML IV SCH ×3 (01:04→19:18)
[2022-09-28] MEDS: TUBE FEEDING WATER FLUSH PEG SCH ×6 (01:42→19:51)
[2022-09-28] MEDS: D5W AND NSS 1,000 ML IV SCH ×2 (05:25→18:26)
[2022-09-28] MEDS: ACETAMINOPHEN 10MG/ML Custom 650 MG in EMPTY BAG 0 ML IV SCH ×2 (05:34→15:51)
[2022-09-28 07:43] LABS: Hematocrit (blood only) 26.8 % (34.1-44.9); Hemoglobin 8.7 g/dl (12.0-16.0); Mean Corpuscular Hgb Conc 32.5 g/dL (32.0-36.0); Mean Corpuscular Volume 89.3 fL (80.0-100.0); Mean Platelet Volume 9.8 fL (9.4-12.3); Platelet Count 340 K/uL (130-400); RDW Coefficient of Variation 14.8 % (11.5-14.5); RDW Standard Deviation 47.6 fL (36.4-46.3); White Blood Count 15.73 K/ul (4.8-10.8)
[2022-09-28 08:14] LABS: BUN Creatinine Ratio 37.5 (10-20); Calcium 8.1 mg/dl (8.5-10.1); Creatinine Clr Calc Pharmacy 78.9 ml/min; Est GFR (African American) 111.6 ml/min; Est GFR (Non-African American) 96.3 ml/min; Potassium 3.6 mmol/L (3.5-5.1)
[2022-09-28] MEDS: POTASSIUM CHLORIDE 20 MEQ/15 ML UDC PEG SCH (08:18)
[2022-09-28] MEDS: MULTIVITAMIN CHEWABLE TAB PO SCH (08:18)
[2022-09-28] MEDS: MULTI VIT W/MINERALS LIQUID 15 ML UDP PEG SCH (08:18)
[2022-09-28 08:19] LABS: Basophils # (auto) 0.04 K/uL (0-0.2); Basophils % (auto) 0.3 %; Eosinophils # (auto) 0.11 K/uL (0-0.50); Eosinophils % (auto) 0.7 %; Immature Granulocytes % (auto) 2.5 %; Lymphocytes # (auto) 0.45 K/uL (1.2-3.4); Lymphocytes % (auto) 2.9 %; Monocytes # (auto) 0.49 K/uL (0.24-0.82); Monocytes % (auto) 3.1 %; Neutrophils # (auto) 14.24 K/uL (1.4-6.5); Neutrophils % (auto) 90.5 %
[2022-09-28] MEDS: PANTOprazole 40 MG in SYRINGE 0 ML IV SCH ×2 (08:19→21:19)
--- NOTE | 2022-09-28 16:30 | Hospitalist Progress Note ---
Date of Service September 28, 2022 Assessment & Plan (1) Aspiration pneumonia: Plan: b/l lower lobe pneumonia - extensive. Continue intravenous Zosyn. Day #4 of such. MRSA swab checked due to ongoing leukocytosis - negative; defer on MRSA coverage for now. repeat CBC in am. Head of bed up at 30 degrees if possible. Pulmonary toilet. Consider vibration vest - has weak cough. (2) Aspiration into airway: Plan: Video swallow on 09/23 was markedly abnormal with evidence of aspiration with all consistencies. Thus, s/p g-tube placement on 09/26. (3) Sacral fracture: Plan: nondisplaced sacral fracture on admission imaging. Pain control PRN. Appreciate Orthopedics consult - WBAT. Sacral donut? (4) Nausea: Plan: resolved 2nd to gastritis as seen on EGD during g-tube placement? (5) Hearing loss: Plan: Patient hearing loss is chronic and communicates with family members using iPad dictator. 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 2nd SIADH. Na levels very stable of late even with NaCl on hold. BMP in am. Caution with IV fluids. (7) SIADH (syndrome of inappropriate ADH production): Plan: repeat BMP in am Na today wnl NaCL is on hold cut back IV fluid rate today to 50cc/hr (8) NF2 (neurofibromatosis 2): Plan: long-standing dx reason for aspiration/dysphagia?? (9) Hyperparathyroidism: Plan: Calcium stable. Resume cinacalcet via G-tube. (10) Hypertension: Plan: BPs mildly elevated without her usual meds Follow for now (11) Gastritis with hemorrhage: Plan: as seen on EGD during g-tube placement. cont PPI bid. serial CBC. hold asa and any NSAIDs. (12) Acute blood loss anemia: Plan: 2nd to #11 repeat CBC in am H/H low but acceptable Plan due to #11, #12 hold on chemical DVT proph for now resume when able SCDs in meantime updated at bedside Admission and Anticipated Discharge Date Admission Date: September 19, 2022 Subjective patient lying flat in bed comfortably at bedside we used her iPad device to communicate she denied any specific complaints denied feeling short of breath denied abd pain tube feedings were at 30cc/hr and she was tolerating such mild cough at times she stated her pain in her back and sacral area was relatively controlled Review of Systems Review of Systems: gen - weak cv - no cp pulm - no dyspnea GI - denied nausea or vomiting Physical Exam Physical Exam: gen - looks chronically ill, thin, but NAD mouth - MM pasty but no lesions neck - no JVD heart - RRR, s1 s2 lungs - decreased BS bases, CTA apices, occasional cough, no wheezes abd - soft NT ND BS+; g-tube insertion site clean, no cellulitis, no drainage ext - no edema, pulses 2+ b/l psych - awake/alert HENT - severe hearing impairment Results & Data Results [facility]) Vital Signs (Past 12 Hours) Vital Signs Temp Pulse Resp BP BP Pulse Ox O2 Del Method 09/28/22 15:07 37.1 C 94 H 22 129/67 93 Nasal Cannula 09/28/22 07:40 Nasal Cannula 09/28/22 07:34 36.5 C 78 20 154/75 H 97 Nasal Cannula O2 Flow Rate 09/28/22 15:07 2.5 09/28/22 07:40 3 09/28/22 07:34 4 Laboratory Results Laboratory Results - last 24 hr 09/28/22 09/28/22 09/28/22 06:57 06:57 15:00 WBC 15.73 H RBC 3.00 L Hgb 8.7 L Hct 26.8 L MCV 89.3 MCH 29.0 MCHC 32.5 RDW Std Deviation 47.6 H RDW Coeff of Missy 14.8 H Plt Count 340 MPV 9.8 Immature Gran % (Auto) 2.5 Neut % (Auto) 90.5 Lymph % (Auto) 2.9 Gray % (Auto) 3.1 Eos % (Auto) 0.7 Baso % (Auto) 0.3 Neut # (Auto) 14.24 H Lymph # (Auto) 0.45 L Gray # (Auto) 0.49 Eos # (Auto) 0.11 Baso # (Auto) 0.04 Immature Gran # (Auto) 0.40 H Sodium 141 Potassium 3.6 Chloride 109 H Carbon Dioxide 29 Anion Gap 3 BUN 15 Creatinine 0.40 L Est Cr Clr Drug Dosing 78.9 Est GFR ( Amer) 111.6 Est GFR (Non-Af Amer) 96.3 BUN/Creatinine Ratio 37.5 H Glucose 129 H Calcium 8.1 L Nasal Screen MRSA (PCR) Negative PG Care Time/CCT Total # of Minutes Spent Total Time Spent with Patient: Total time spent is greater than 50% in coordination of care (as documented) at patient's floor/unit and/or counseling patient: Coding Level of Care Code 67071 Subseq Hosp Care Lvl 3 Diagnoses Aspiration pneumonia J69.0 Aspiration into airway T17.908A Sacral fracture S32.10XA Nausea R11.0 Hearing loss H91.90 Acute hyponatremia E87.1 SIADH (syndrome of inappropriate ADH production) E22.2 NF2 (neurofibromatosis 2) Q85.02 Hyperparathyroidism E21.3 Hypertension I10 Gastritis with hemorrhage K29.71 Acute blood loss anemia D62
[2022-09-28] MEDS: ACETAMINOPHEN 500 MG TAB PO SCH (21:18)
[2022-09-28] MEDS: ESCITALOPRAM OXALATE 10 MG TAB PO SCH (21:18)
[2022-09-29] MEDS: TUBE FEEDING WATER FLUSH PEG SCH ×6 (00:15→20:12)
[2022-09-29] MEDS: PIPERACILLIN/TAZOBACTAM 3.375 GM in DEXTROSE 5% 100 ML IV SCH ×3 (00:52→17:11)
[2022-09-29 07:09] LABS: Hematocrit (blood only) 26.5 % (34.1-44.9); Hemoglobin 8.7 g/dl (12.0-16.0); Mean Corpuscular Hemoglobin 29.2 pg (25.0-34.0); Mean Corpuscular Hgb Conc 32.8 g/dL (32.0-36.0); Mean Corpuscular Volume 88.9 fL (80.0-100.0); Platelet Count 394 K/uL (130-400); RDW Coefficient of Variation 14.8 % (11.5-14.5); RDW Standard Deviation 47.8 fL (36.4-46.3); Red Blood Count 2.98 M/uL (3.93-5.22); White Blood Count 16.57 K/ul (4.8-10.8)
[2022-09-29 07:39] LABS: Basophils # (auto) 0.02 K/uL (0-0.2); Basophils % (auto) 0.1 %; Eosinophils # (auto) 0.09 K/uL (0-0.50); Eosinophils % (auto) 0.5 %; Immature Granulocytes % (auto) 1.8 %; Lymphocytes # (auto) 0.51 K/uL (1.2-3.4); Lymphocytes % (auto) 3.1 %; Monocytes # (auto) 0.55 K/uL (0.24-0.82); Monocytes % (auto) 3.3 %; Neutrophils % (auto) 91.2 %
[2022-09-29 07:43] LABS: BUN Creatinine Ratio 32.6 (10-20); Calcium 8.6 mg/dl (8.5-10.1); Creatinine Clr Calc Pharmacy 73.4 ml/min; Est GFR (Non-African American) 94.1 ml/min; Potassium 3.6 mmol/L (3.5-5.1)
[2022-09-29] MEDS: ACETAMINOPHEN 500 MG TAB PO SCH ×3 (09:26→20:56)
[2022-09-29] MEDS: PANTOprazole 40 MG in SYRINGE 0 ML IV SCH ×2 (09:27→20:55)
[2022-09-29] MEDS: MULTI VIT W/MINERALS LIQUID 15 ML UDP PEG SCH (09:27)
[2022-09-29] MEDS: MULTIVITAMIN CHEWABLE TAB PO SCH (09:27)
[2022-09-29] MEDS: POTASSIUM CHLORIDE 20 MEQ/15 ML UDC PEG SCH (09:27)
[2022-09-29] MEDS: CINACALCET HCL 30 MG TAB PO SCH (11:03)
[2022-09-29] MEDS: D5W AND NSS 1,000 ML IV SCH (14:10)
[2022-09-29] MEDS ORDERED: FUROSEMIDE 20 MG TAB PO ONE (16:22)
[2022-09-29] MEDS ORDERED: POTASSIUM CHLORIDE 20 MEQ/15 ML UDC GT STA (16:22)
[2022-09-29] MEDS ORDERED: lisinopril 5 MG TAB PO ONE (18:11)
--- NOTE | 2022-09-29 19:53 | Hospitalist Progress Note ---
Date of Service September 29, 2022 Assessment & Plan (1) Aspiration pneumonia: Plan: b/l lower lobe pneumonia - extensive. Continue intravenous Zosyn. Day #5 of such. Plan 7 days in total. MRSA swab negative; defer on MRSA coverage. Head of bed up at 30 degrees if possible. Pulmonary toilet. Wean NC O2 as tolerated. (2) Aspiration into airway: Plan: Video swallow on 09/23 was markedly abnormal with evidence of aspiration with all consistencies. Thus, s/p g-tube placement on 09/26. dysphagia 2nd to prior nerve damage from treatment for acoustic neuroma? other cause? (3) Sacral fracture: Plan: nondisplaced sacral fracture on admission imaging. Pain control PRN. Appreciate Orthopedics consult - WBAT. (4) Nausea: Plan: resolved 2nd to gastritis as seen on EGD during g-tube placement? (5) Hearing loss: Plan: Patient hearing loss is chronic and communicates with family members using iPad dictator. 2nd to acoustic neuroma s/p surgery on right has another acoustic neuroma on left (per ) (6) Acute hyponatremia: Plan: Na generally holds in high 120 - 130 range. 2nd SIADH. Na levels very stable of late even with NaCl on hold. BMP in am. STOP IV fluids today. Will give lasix 20mg x 1 via g-tube today to keep I/O balance even or net negative. 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 (9) Hyperparathyroidism: Plan: Calcium stable. Resumed cinacalcet via G-tube. (10) Hypertension: Plan: BPs elevated today. stop fluids. lasix. resume lisinopril. (11) Gastritis with hemorrhage: Plan: as seen on EGD during g-tube placement. cont PPI bid. serial CBC stable since her G-tube placement. hold asa and any NSAIDs. (12) Acute blood loss anemia: Plan: 2nd to #11 H/H low but acceptable again today Plan updated at bedside order melatonin for sleep resume heparin SC for DVT proph tomorrow if H/H stable Admission and Anticipated Discharge Date Admission Date: September 19, 2022 Subjective patient resting comfortably in bed was at bedside like yesterday I used an iPad to communicate with her she denied any abd pain related to recent g-tube placement denied any dyspnea some cough occasional sputum production she is tolerating her g-tube feedings at goal of 40cc/hr Review of Systems Review of Systems: cv - no cp, no orthopnea pulm - no dyspnea GI - no nausea/emesis psych - poor sleep at night Physical Exam Physical Exam: gen - looks chronically ill, thin, but NAD mouth - MM slightly dry neck - no JVD heart - RRR, s1 s2, no murmur lungs - decreased BS bases, CTA apices abd - soft NT ND BS+; g-tube insertion site clean, no cellulitis, no drainage ext - no edema, pulses 2+ b/l psych - awake/alert, oriented HENT - severe hearing impairment speech - phonation is abnormal, likely due to chronic hearing loss Results & Data Results & Data ([facility]) Vital Signs (Past 12 Hours) Vital Signs Temp Pulse Resp BP Pulse Ox O2 Del Method O2 Flow Rate 09/29/22 15:38 36.8 C 91 H 16 180/75 H 96 Nasal Cannula 2 09/29/22 08:20 36.6 C 88 17 144/76 H 94 Nasal Cannula 2 09/29/22 08:00 36.8 C 90 18 166/75 H 94 Nasal Cannula 2 Laboratory Results Laboratory Results - last 24 hr 09/29/22 09/29/22 05:33 05:33 WBC 16.57 H RBC 2.98 L Hgb 8.7 L Hct 26.5 L MCV 88.9 MCH 29.2 MCHC 32.8 RDW Std Deviation 47.8 H RDW Coeff of Missy 14.8 H Plt Count 394 MPV 10.0 Immature Gran % (Auto) 1.8 Neut % (Auto) 91.2 Lymph % (Auto) 3.1 [place] % (Auto) 3.3 Eos % (Auto) 0.5 Baso % (Auto) 0.1 Neut # (Auto) 15.10 H Lymph # (Auto) 0.51 L [place] # (Auto) 0.55 Eos # (Auto) 0.09 Baso # (Auto) 0.02 Immature Gran # (Auto) 0.30 H Sodium 138 Potassium 3.6 Chloride 105 Carbon Dioxide 27 Anion Gap 6 BUN 14 Creatinine 0.43 L Est Cr Clr Drug Dosing 73.4 Est GFR ( Amer) 109.0 Est GFR (Non-Af Amer) 94.1 BUN/Creatinine Ratio 32.6 H Glucose 121 H Calcium 8.6 PG Care Time/CCT Total # of Minutes Spent Total Time Spent with Patient: Total time spent is greater than 50% in coordination of care (as documented) at patient's floor/unit and/or counseling patient: Coding Level of Care Code 37667 Subseq Hosp Care Lvl 3 Diagnoses Aspiration pneumonia J69.0 Aspiration into airway T17.908A Sacral fracture S32.10XA Nausea R11.0 Hearing loss H91.90 Acute hyponatremia E87.1 SIADH (syndrome of inappropriate ADH production) E22.2 NF2 (neurofibromatosis 2) Q85.02 Hyperparathyroidism E21.3 Hypertension I10 Gastritis with hemorrhage K29.71 Acute blood loss anemia D62
[2022-09-29] MEDS: ESCITALOPRAM OXALATE 10 MG TAB PO SCH (20:56)
[2022-09-29] MEDS: MELATONIN 3 MG TAB PO SCH (20:56)
[2022-09-30] MEDS: TUBE FEEDING WATER FLUSH PEG SCH ×6 (00:56→20:20)
[2022-09-30] MEDS: PIPERACILLIN/TAZOBACTAM 3.375 GM in DEXTROSE 5% 100 ML IV SCH ×3 (00:56→18:15)
[2022-09-30 07:17] LABS: Hematocrit (blood only) 25.5 % (34.1-44.9); Hemoglobin 8.6 g/dl (12.0-16.0); Mean Corpuscular Hgb Conc 33.7 g/dL (32.0-36.0); Mean Corpuscular Volume 85.9 fL (80.0-100.0); Mean Platelet Volume 10.3 fL (9.4-12.3); Platelet Count 400 K/uL (130-400); RDW Coefficient of Variation 14.6 % (11.5-14.5); RDW Standard Deviation 45.3 fL (36.4-46.3); Red Blood Count 2.97 M/uL (3.93-5.22); White Blood Count 17.74 K/ul (4.8-10.8)
[2022-09-30 08:23] LABS: BUN Creatinine Ratio 43.8 (10-20); Calcium 8.6 mg/dl (8.5-10.1); Creatinine Clr Calc Pharmacy 98.6 ml/min; Est GFR (African American) 120.1 ml/min; Est GFR (Non-African American) 103.7 ml/min; Potassium 4.3 mmol/L (3.5-5.1)
[2022-09-30] MEDS: POTASSIUM CHLORIDE 20 MEQ/15 ML UDC PEG SCH (08:32)
[2022-09-30] MEDS: PANTOprazole 40 MG in SYRINGE 0 ML IV SCH ×2 (08:32→20:18)
[2022-09-30] MEDS: MULTIVITAMIN CHEWABLE TAB PO SCH (08:33)
[2022-09-30] MEDS: MULTI VIT W/MINERALS LIQUID 15 ML UDP PEG SCH (08:33)
[2022-09-30] MEDS: ACETAMINOPHEN 500 MG TAB PO SCH ×3 (08:34→20:20)
[2022-09-30] MEDS: CINACALCET HCL 30 MG TAB PO SCH (08:34)
[2022-09-30] MEDS: lisinopril 5 MG TAB PO SCH (08:45)
[2022-09-30] MEDS ORDERED: SODIUM CHLORIDE 1 GM TABLET PO ONE (09:30)
[2022-09-30] MEDS: HEPARIN SOD 5,000 UNIT/0.5 ML VIAL SQ SCH ×2 (10:51→20:20)
[2022-09-30] MEDS: MoRPHine SULFATE 2 MG/ML CARP IV PRN (10:52)
[2022-09-30] MEDS: PEPTAMEN 1.5 CAL 1,000 ML BAG PEG SCH (12:13)
--- NOTE | 2022-09-30 13:14 | Hospitalist Progress Note ---
Date of Service September 30, 2022 Assessment & Plan (1) Aspiration pneumonia: Plan: b/l lower lobe pneumonia - extensive. CLINICALLY WORSE TODAY with pleuritic pain on left. This is despite 6 days continuous of IV zosyn. She continues with failure to thrive and leukocytosis. MRSA swab negative; thus has not received MRSA coverage. Clinically worsening -- due to relative adrenal insufficiency (cortisol level returned at 12 only)? Due to resistant pathogen that zosyn is not covering? Due to ongoing aspiration and inability to clear secretions (highly suspected)? combination of factors? No PE seen on CT today. The pleuritic pain, however, is likely due to the extensive LLL pneumonia with parapneumonic effusion. Empyema is possible but unlikely. Plan - * start stress dose steroids - dexamethasone 4mg IV BID, first dose now * gave fluid bolus of 500cc of LR (BPs were low-normal mid-afternoon) * add NaCL nebs BID * duoneb x 1 now; consider ongoing use * robitussin 100mg via g-tube q6h * chest PT (vibration vest) BID * strongly consider pulmonary consultation - therapeutic/diagnostic bronch? other avenues of Rx? I am very concerned about her overall well-being. If she fails to improve may need to consider palliative care consultation. Family (, 2 children) extensively updated at bedside. (2) Aspiration into airway: Plan: Video swallow on 09/23 was markedly abnormal with evidence of aspiration with all consistencies. Thus, s/p g-tube placement on 09/26. dysphagia 2nd to prior nerve damage from treatment for acoustic neuroma? other cause? see #1 above. (3) Sacral fracture: Plan: nondisplaced sacral fracture on admission imaging. Pain control PRN. Appreciate Orthopedics consult - WBAT, but has essentially been bed-bound since admission. (4) Nausea: Plan: resolved 2nd to gastritis as seen on EGD during g-tube placement? (5) Hearing loss: Plan: Patient hearing loss is chronic and communicates with family members using iPad dictator. 2nd to acoustic neuroma s/p surgery on right has another acoustic neuroma on left (per ) (6) Acute hyponatremia: Plan: Na generally holds in high 120 - 130 range. 2nd SIADH. Na levels had been very stable until tube feedings with free water flushes were started. Na level starting to drop again. NaCL tabs resumed (1gm BID via g-tube). Decrease free water flushes by 300cc/day. BMP am. Caution with IV fluids. 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 (9) Hyperparathyroidism: Plan: Calcium stable. Resumed cinacalcet via G-tube. (10) Hypertension: Plan: BPs low-normal today, likely due to #1 and relative adrenal insufficiency starting stress-dose steroids today follow BPs following such (11) Gastritis with hemorrhage: Plan: as seen on EGD during g-tube placement. cont PPI bid. serial CBC stable since her G-tube placement. hold asa and any NSAIDs. (12) Acute blood loss anemia: Plan: 2nd to #11 H/H low but acceptable again today Plan updated at bedside 2 daughters updated at bedside heparin 5000 BID for DVT proph CTA chest today without PEs fortunately prognosis is guarded total time today over 2 bedside visits, counseling the pt and family, ordering/reviewing tests, etc -- 75 minutes Admission and Anticipated Discharge Date Admission Date: September 19, 2022 Subjective during AM rounds the pt's was at bedside patient was resting comfortably in bed her stated "I don't think she looks good today" using dry erase board to communicate I asked her how she felt and she said "not so good" she reported that sometime earlier in the morning she had left sided chest discomfort she pointed to the left breast region I asked her to take a deep breath and this caused pain for her she felt a little more short of breath today she continues to cough staff reports she can only get a small amount of sputum up tolerating tube feedings at goal of 40cc/hr without significant residuals no vomiting Review of Systems Review of Systems: gen - feels poorly, weak cv - left sided chest pain, pleuritic; no right-sided pain pulm - cough, short of breath GI - no abd pain; no nausea Physical Exam Physical Exam: gen - looks chronically ill; cachectic; not WD or WN; color today is ashen, looks worse than yesterday mouth - no lesions, no thrush neck - no JVD heart - RRR, s1 s2, no murmur lungs - very poor airation today, decreased BS bases, scattered end-exp wheeze b/l, course BS b/l abd - soft NT ND BS+; g-tube insertion site clean, no drainage ext - no edema, pulses 2+ b/l but extremities cool today psych - awake/alert, oriented, but weak HENT - severe hearing impairment speech - phonation is abnormal, likely due to chronic hearing loss Results & Data Results & Data ([facility]) Vital Signs (Past 12 Hours) Vital Signs Temp Pulse Resp BP Pulse Ox O2 Del Method 09/30/22 08:06 36.9 C 91 H 18 157/75 H 91 Room Air Laboratory Results Laboratory Results - last 24 hr 09/30/22 09/30/22 06:13 06:13 WBC 17.74 H RBC 2.97 L Hgb 8.6 L Hct 25.5 L MCV 85.9 MCH 29.0 MCHC 33.7 RDW Std Deviation 45.3 RDW Coeff of Missy 14.6 H Plt Count 400 MPV 10.3 Sodium 129 L D Potassium 4.3 Chloride 96 L Carbon Dioxide 29 Anion Gap 4 BUN 14 Creatinine 0.32 L Est Cr Clr Drug Dosing 98.6 Est GFR ( Amer) 120.1 Est GFR (Non-Af Amer) 103.7 BUN/Creatinine Ratio 43.8 H Glucose 100 H Calcium 8.6 Diagnostic Findings Chest X-Ray 09/30/22 13:12 XR chest 1V portable CLINICAL HISTORY: aspiration pneumonia, L sided CP COMPARISON STUDY: Chest CT September 25, 2022. Chest radiograph September 27, 2022. FINDINGS: There is no pneumothorax. Small bilateral pleural effusions have slightly increased. Perihilar and bibasilar airspace opacities have progressed. Cardiomediastinal silhouette is stable. IMPRESSION: 1. Bibasilar and perihilar opacities which have mildly progressed. The findings favor pneumonia or aspiration pneumonitis. Superimposed pulmonary edema would be difficult to exclude. 2. Small bilateral pleural effusions, slightly increased in size. ACT 112: Negative or not required by law. Electronically signed by: Benny Jarrell M.D. 09/30/2022 1:40 PM Chest CTA 09/30/22 14:24 CHEST CTA for PULMONARY ARTERIES CT DOSE: 235.23 mGy.cm HISTORY: aspiration pneumonia, L pleuritic chest pain TECHNIQUE: Multiaxial CT images of the chest were performed following the intravenous administration of contrast to evaluate the pulmonary arteries. Maximal intensity projection images were also obtained. A dose lowering technique was utilized adhering to the principles of ALARA. COMPARISON STUDY: Chest CT 09/25/2022. FINDINGS: Normal caliber thoracic aorta with no evidence for a dissection. The heart remains mildly enlarged. Respiratory motion artifact results in nondiagnostic evaluation of the majority segmental and subsegmental pulmonary arteries. The main and lobar pulmonary arteries appear patent. There are old, healed left anterior rib fractures. No suspicious lytic or blastic osseous lesions. Small to moderate bilateral pleural effusions, left greater than right. These have progressed in the interval. There is a partially loculated component of the left pleural fluid near the left lung apex. Limited views of the upper abdomen demonstrate normal liver and spleen. No mediastinal or hilar lymphadenopathy. There is gas within the mildly distended esophagus. No pericardial effusion. There is complete consolidation of the bilateral lower lobes which has progressed. No pneumothorax. Mucoid material seen within the trachea with near complete opacification of the bilateral lower lobe bronchi. This has also progressed in the interval. There are additional small areas consolidation within the bilateral upper lobes posteriorly, unchanged. Scattered small hyperdense foci within the bilateral lower lobes persist. IMPRESSION: 1. No evidence for central pulmonary embolus. 2. Complete consolidation of the bilateral lower lobes with near complete opacification of the bilateral lower lobe bronchi. This has progressed in the interval. This is likely due to a combination of the suspected aspiration pneumonia and increase in size in the small to moderate bilateral pleural effusions. 3. Additional findings as described above. ACT 112: Negative or not required by law. Electronically signed by: Dipesh Aguayo M.D. 09/30/2022 3:54 PM EKG - my reading - NSR, no ST Changes PG Care Time/CCT Total # of Minutes Spent Total Time Spent with Patient: Total time spent is greater than 50% in coordination of care (as documented) at patient's floor/unit and/or counseling patient: Prolonged Care Time Prolonged Care Time: Yes Total Prolonged Care Time: 75 Coding Level of Care Code 26592 Subseq Hosp Care Lvl 3 (25 - SIGNIFICANT, SEPARATELY IDENTIFIABLE ) Diagnoses Aspiration pneumonia J69.0 Aspiration into airway T17.908A Sacral fracture S32.10XA Nausea R11.0 Hearing loss H91.90 Acute hyponatremia E87.1 SIADH (syndrome of inappropriate ADH production) E22.2 NF2 (neurofibromatosis 2) Q85.02 Hyperparathyroidism E21.3 Hypertension I10 Gastritis with hemorrhage K29.71 Acute blood loss anemia D62 Additional Codes Prolonged Care Time - Prolonged Care Time: Yes ([id number])
[2022-09-30] MEDS ORDERED: ALBUT/IPRATROP 3MG/0.5MG NEB 3 ML VIAL NEB STA (13:17)
--- NOTE | 2022-09-30 13:41 | XRay Report ---
XR chest 1V portable CLINICAL HISTORY: aspiration pneumonia, L sided CP COMPARISON STUDY: Chest CT September 25, 2022. Chest radiograph September 27, 2022. FINDINGS: There is no pneumothorax. Small bilateral pleural effusions have slightly increased. Perihi lar and bibasilar airspace opacities have progressed. Cardiomediastinal silhouette is stable. IMPRESSION: 1. Bibasilar and perihilar opacities which have mildly progressed. The findings favor pneumonia or as piration pneumonitis. Superimposed pulmonary edema would be difficult to exclude. 2. Small bilateral pleural effusions, slightly increased in size. ACT 112: Negative or not required by law. Electronically signed by: Benny Jarrell M.D. 09/30/2022 1:40 PM
[2022-09-30] MEDS ORDERED: OPTIRAY 320 500ml IV ONE (15:25)
--- NOTE | 2022-09-30 15:55 | CT Scan Report ---
CHEST CTA for PULMONARY ARTERIES CT DOSE: 235.23 mGy.cm HISTORY: aspiration pneumonia, L pleuritic chest pain TECHNIQUE: Multiaxial CT images of the chest were performed following the intravenous administration of contrast to evaluate the pulmonary arteries. Maximal intensity projection images were also obtaine d. A dose lowering technique was utilized adhering to the principles of ALARA. COMPARISON STUDY: Chest CT 09/25/2022. FINDINGS: Normal caliber thoracic aorta with no evidence for a dissection. The heart remains mildly e nlarged. Respiratory motion artifact results in nondiagnostic evaluation of the majority segmental an d subsegmental pulmonary arteries. The main and lobar pulmonary arteries appear patent. There are old , healed left anterior rib fractures. No suspicious lytic or blastic osseous lesions. Small to modera te bilateral pleural effusions, left greater than right. These have progressed in the interval. There is a partially loculated component of the left pleural fluid near the left lung apex. Limited views of the upper abdomen demonstrate normal liver and spleen. No mediastinal or hilar lymphadenopathy. Th ere is gas within the mildly distended esophagus. No pericardial effusion. There is complete consolid ation of the bilateral lower lobes which has progressed. No pneumothorax. Mucoid material seen within the trachea with near complete opacification of the bilateral lower lobe bronchi. This has also prog ressed in the interval. There are additional small areas consolidation within the bilateral upper lob es posteriorly, unchanged. Scattered small hyperdense foci within the bilateral lower lobes persist. IMPRESSION: 1. No evidence for central pulmonary embolus. 2. Complete consolidation of the bilateral lower lobes with near complete opacification of the bilate ral lower lobe bronchi. This has progressed in the interval. This is likely due to a combination of t he suspected aspiration pneumonia and increase in size in the small to moderate bilateral pleural eff usions. 3. Additional findings as described above. ACT 112: Negative or not required by law. Electronically signed by: Dipesh Aguayo M.D. 09/30/2022 3:54 PM
[2022-09-30] MEDS ORDERED: LACTATED RINGER'S 500 ML IV ONE (16:29)
[2022-09-30 17:35] LABS: BUN Creatinine Ratio 36.6 (10-20); Calcium 8.5 mg/dl (8.5-10.1); Est GFR (African American) 110.7 ml/min; Est GFR (Non-African American) 95.5 ml/min; Potassium 4.4 mmol/L (3.5-5.1)
--- NOTE | 2022-09-30 17:49 | Electrocardiogram Report ---
Test Reason : Blood Pressure : / mmHG Vent. Rate : 084 BPM Atrial Rate : 084 BPM P-R Int : 118 ms QRS Dur : 068 ms QT Int : 358 ms P-R-T Axes : 035 012 043 degrees QTc Int : 423 ms Sinus rhythm with Premature atrial complexes Otherwise normal ECG When compared with ECG of 24-SEP-2022 21:13, Questionable change in QRS axis Confirmed by Boy Cruz ([id number] on 09/30/2022 5:49:08 PM Referred By: REFERRED SELF Confirmed By:Ramsey Cruz
[2022-09-30] MEDS: SODIUM CHLOR 7% 4 ML NEB NEB SCH (17:54)
[2022-09-30] MEDS: guaiFENesin SUGAR FREE 100 MG/5 ML UDC GT SCH (18:32)
[2022-09-30] MEDS: dexAMETHasone 4 MG in SYRINGE 0 ML IV SCH (20:18)
[2022-09-30] MEDS: SODIUM CHLORIDE 1 GM TABLET PO SCH (20:19)
[2022-09-30] MEDS: ESCITALOPRAM OXALATE 10 MG TAB PO SCH (20:19)
[2022-09-30] MEDS: MELATONIN 3 MG TAB PO SCH (20:20)
[2022-10-01] MEDS: PIPERACILLIN/TAZOBACTAM 3.375 GM in DEXTROSE 5% 100 ML IV SCH ×2 (00:25→08:45)
[2022-10-01] MEDS: guaiFENesin SUGAR FREE 100 MG/5 ML UDC GT SCH ×4 (00:25→18:00)
[2022-10-01] MEDS: TUBE FEEDING WATER FLUSH PEG SCH ×3 (06:00→18:00)
[2022-10-01] MEDS: SODIUM CHLOR 7% 4 ML NEB NEB SCH ×2 (08:07→19:21)
[2022-10-01] MEDS: lisinopril 5 MG TAB PO SCH (08:35)
[2022-10-01] MEDS: CINACALCET HCL 30 MG TAB PO SCH (08:35)
[2022-10-01] MEDS: ACETAMINOPHEN 500 MG TAB PO SCH ×3 (08:35→20:30)
[2022-10-01] MEDS: dexAMETHasone 4 MG in SYRINGE 0 ML IV SCH (08:36)
[2022-10-01] MEDS: HEPARIN SOD 5,000 UNIT/0.5 ML VIAL SQ SCH ×2 (08:36→20:30)
[2022-10-01] MEDS: SODIUM CHLORIDE 1 GM TABLET PO SCH ×2 (08:36→20:30)
[2022-10-01] MEDS: POTASSIUM CHLORIDE 20 MEQ/15 ML UDC PEG SCH (08:37)
[2022-10-01] MEDS: PANTOprazole 40 MG in SYRINGE 0 ML IV SCH ×2 (08:37→20:29)
[2022-10-01] MEDS: MULTI VIT W/MINERALS LIQUID 15 ML UDP PEG SCH (08:37)
[2022-10-01 09:47] LABS: Hematocrit (blood only) 25.6 % (34.1-44.9); Hemoglobin 8.7 g/dl (12.0-16.0); Mean Corpuscular Hemoglobin 30.1 pg (25.0-34.0); Mean Corpuscular Volume 88.6 fL (80.0-100.0); Mean Platelet Volume 10.3 fL (9.4-12.3); Platelet Count 460 K/uL (130-400); RDW Coefficient of Variation 14.6 % (11.5-14.5); RDW Standard Deviation 46.7 fL (36.4-46.3); Red Blood Count 2.89 M/uL (3.93-5.22); White Blood Count 15.56 K/ul (4.8-10.8)
[2022-10-01 10:13] LABS: BUN Creatinine Ratio 38.1 (10-20); Calcium 8.9 mg/dl (8.5-10.1); Creatinine Clr Calc Pharmacy 75.1 ml/min; Est GFR (African American) 109.9 ml/min; Est GFR (Non-African American) 94.8 ml/min; Potassium 4.7 mmol/L (3.5-5.1)
[2022-10-01] MEDS: PEPTAMEN 1.5 CAL 1,000 ML BAG PEG SCH (11:27)
--- NOTE | 2022-10-01 14:54 | Pulmonary Consultation ---
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 While the PEG tube does provide access to enable the patient to receive nutrition and medications, it does not prevent aspiration of oropharyngeal secretions which is likely an ongoing issue for the patient. With a negative procalcitonin, negative cultures, and absence of fever, I am not convinced the patient has an active ongoing infection and Zosyn for 7 days should have been adequate to treat any underlying infectious process. There is no role for steroids at this point in time. A low random cortisol is only helpful in the setting of hypotensive patient's and would not apply to this patient. Recommendations: 1. Recurrent aspiration: Unfortunately this is not an easily fixable solution. The patient will continue to aspirate despite the PEG tube. The only solution to prevent long-term aspiration would be consideration of a spit fistula formation which is a fairly advanced procedure and would significantly alter the quality of life of this patient. She will continue to aspirate oropharyngeal secretions and focusing on symptom therapy is going to be a more effective long- term strategy. 2. Continue hypertonic saline, and chest physiotherapy. We will add flutter valve to see if the patient can perform this. 3. Seems appropriate to consider goals of therapy with palliative care given the patient's advanced age and comorbid conditions. I am not sure that intubation mechanical ventilation and potential tracheostomy would be in the patient's long-term best interest or if she would want to proceed with these interventions. We will enter a palliative care consult to assist in discussion of goals of therapy with the patient and family. 4. We will discontinue antibiotics and steroids at this point time. 5. Could consider bronchoscopy for lavage of secretions however this would be a temporizing measure at best as I would expect the secretions to reaccumulate in relatively short order if the patient is not able to perform adequate pulmonary toilet and keep her airways cleared. We will see how she responds History of Present Illness Attending Physician: Radha Dle Cid MD History of Present Illness Asked by hospitalist to evaluate this patient with mucous plugging and potential pneumonia. History is obtained from review of the electronic medical record. Discussion with the patient is significantly impaired due to history of acoustic neuroma and difficulty hearing. This 82-year-old female with a history of acoustic neuroma status postresection was admitted to the facility 09/19/2022 after a fall with generalized weakness. She had prior hospitalizations in August and early August for similar complaints. She has issues with chronic aspiration and on presentation was found to have a sacral fracture. This was managed conservatively with orthopedics. Unfortunately the patient's swallowing issues continued to be progressive with recurrent episodes of aspiration and it was recommended that the patient undergo a PEG tube placement which was accomplished by surgery 09/26/2022. The patient has been treated with Zosyn (currently day #7) with no positive cultures. She has been treated with hypertonic saline and chest physiotherapy in an effort to try and improve the mucous plugging which she has not been particularly beneficial either. Despite this, the patient is maintaining oxygen saturations with only 2 L supplemental oxygen and has respiratory rate in the mid teens. She has not Hao tested fevers. Patient was started on steroids yesterday for reasons that are not entirely clear. Allergies Allergy/AdvReac Type Severity Reaction Status Date / Time Cephalosporins Allergy Intermediate RASH Verified 09/19/22 14:57 cefazolin Allergy Unknown UNKNOWN Verified 09/19/22 14:57 donepezil [From Aricept] Allergy Unknown Unknown Verified 09/19/22 14:57 adhesive tape Allergy Unknown Verified 09/19/22 14:57 amlodipine [From Norvasc] Allergy Edema Verified 09/19/22 14:57 Sulfa (Sulfonamide Allergy Unknown Verified 09/19/22 14:57 Antibiotics) Home Medications Medication Instructions Recorded Confirmed Type aspirin 81 mg tablet,delayed 81 mg PO DAILY 10/21/18 09/19/22 History release (Aspir-) pediatric multivitamin no.7-folic 1 tab PO DAILY 10/21/18 09/19/22 History acid 100 mcg chewable tablet (Flintstones Tab Chew) acetaminophen 500 mg tablet 500 mg PO Q6H PRN Pain 09/05/20 09/19/22 History (Tylenol Extra Strength) lisinopril 5 mg tablet 5 mg PO DAILY #90 tabs 07/11/22 09/19/22 Rx cinacalcet 30 mg tablet 30 mg PO DAILY #30 tabs 08/27/22 09/19/22 Rx sodium chloride 1 gram tablet 1 g PO BID 30 days #60 tabs 09/02/22 09/19/22 Rx escitalopram oxalate 5 mg tablet 5 mg PO HS 09/19/22 09/19/22 History Patient History Medical History (Updated 10/01/22 @ 14:50 by Fredy Mcclain MD) Acoustic neuroma Anemia Depression Gait disturbance Hearing loss Hx of cataract Hypercalciuria Hypertension Hypertensive urgency Hypokalemia Osteoporosis SIADH (syndrome of inappropriate ADH production) Vitamin D deficiency Surgical History (Updated 09/26/22 @ 12:01 by Randi Ware RN) Feeding by G-tube (09/26/22) p Esophagogastroduodenoscopy with Gastric Biopsy - Iglesia Stovall DO s Gastric Tube Placement - Iglesia Stovall DO History of craniotomy excision of acoustic neuroma Hx of cataract surgery Hx of cholecystectomy Hx of hysterectomy Hx of total knee replacement Family History Aunt Breast cancer Brother Colorectal cancer Heart problem Mother Heart problem Father Heart problem Sister Multiple sclerosis Other Family history non-contributory Denies family history of Ovarian cancer Prostate cancer Myocardial infarction Social History Smoking Status: Never smoker Second Hand Exposure: No; Hx Alcohol Use: No Hx Substance Use: No Preferred Language: Portuguese Communication Ability: Effective Visual Impairment: No Limitations Hearing Ability: Hard of Hearing 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 No significant additions or deletions Physical Exam Physical Exam: gen - looks chronically ill, thin, but NAD mouth - MM slightly dry neck - no JVD heart - RRR, s1 s2, no murmur lungs - decreased BS bases, CTA apices abd - soft NT ND BS+; g-tube insertion site clean, no cellulitis, no drainage ext - no edema, pulses 2+ b/l psych - awake/alert, oriented HENT - severe hearing impairment speech - phonation is abnormal, likely due to chronic hearing loss Results & Data Results & Data ([facility]) Vital Signs (Past 12 Hours) Vital Signs Temp Pulse Resp BP Pulse Ox O2 Del Method O2 Flow Rate 10/01/22 10:58 Nasal Cannula 2 10/01/22 08:10 78 18 94 Nasal Cannula 3 10/01/22 06:57 36.2 C L 85 22 148/80 H 95 Nasal Cannula 3 Laboratory Results No respiratory cultures have been obtained throughout the patient's hospitalization. Blood cultures from 09/24 have shown no growth to date Procalcitonin of 0.21 which is normal. Random cortisol of 12.7. Critical Care Results & Data Vital Signs (Past 12 Hours) Vital Signs Temp Pulse Resp BP Pulse Ox O2 Del Method O2 Flow Rate 10/01/22 10:58 Nasal Cannula 2 10/01/22 08:10 78 18 94 Nasal Cannula 3 10/01/22 06:57 36.2 C L 85 22 148/80 H 95 Nasal Cannula 3 Lab & Micro Results (Past 24 Hours) RBC 2.89 M/uL (3.93-5.22) L 10/01/22 WBC 15.56 K/ul (4.8-10.8) H 10/01/22 Hgb 8.7 g/dl (12.0-16.0) L 10/01/22 Hct 25.6 % (34.1-44.9) L 10/01/22 MCV 88.6 fL (80.0-100.0) 10/01/22 MCH 30.1 pg (25.0-34.0) 10/01/22 MCHC 34.0 g/dL (32.0-36.0) 10/01/22 RDW Standard Deviation 46.7 fL (36.4-46.3) H 10/01/22 RDW Coefficient of Variation 14.6 % (11.5-14.5) H 10/01/22 Plt Count 460 K/uL (130-400) H 10/01/22 MPV 10.3 fL (9.4-12.3) 10/01/22 Na 131 mmol/L (136-145) L 10/01/22 K 4.7 mmol/L (3.5-5.1) 10/01/22 Cl 96 mmol/L (98-107) L 10/01/22 CO2 29 mmol/L (21-32) 10/01/22 Anion Gap 6 (3-11) 10/01/22 BUN 16 mg/dl (6-23) 10/01/22 Creatinine 0.42 mg/dl (0.6-1.2) L 10/01/22 Estimated GFR ( Amer) 109.9 ml/min 10/01/22 Estimated GFR (Non-Af Amer) 94.8 ml/min 10/01/22 BUN/Creatinine Ratio 38.1 (10-20) H 10/01/22 Glu 181 mg/dl (70-99(Fasting)) H 10/01/22 Ca 8.9 mg/dl (8.5-10.1) 10/01/22 Calcium Level 8.9 mg/dl (8.5-10.1) 10/01/22 09:05 Diagnostic Findings (Past 24 Hours) Chest CTA 09/30/22 14:24 CHEST CTA for PULMONARY ARTERIES CT DOSE: 235.23 mGy.cm HISTORY: aspiration pneumonia, L pleuritic chest pain TECHNIQUE: Multiaxial CT images of the chest were performed following the intravenous administration of contrast to evaluate the pulmonary arteries. Maximal intensity projection images were also obtained. A dose lowering technique was utilized adhering to the principles of ALARA. COMPARISON STUDY: Chest CT 09/25/2022. FINDINGS: Normal caliber thoracic aorta with no evidence for a dissection. The heart remains mildly enlarged. Respiratory motion artifact results in nondiagnostic evaluation of the majority segmental and subsegmental pulmonary arteries. The main and lobar pulmonary arteries appear patent. There are old, healed left anterior rib fractures. No suspicious lytic or blastic osseous lesions. Small to moderate bilateral pleural effusions, left greater than right. These have progressed in the interval. There is a partially loculated component of the left pleural fluid near the left lung apex. Limited views of the upper abdomen demonstrate normal liver and spleen. No mediastinal or hilar lymphadenopathy. There is gas within the mildly distended esophagus. No pericardial effusion. There is complete consolidation of the bilateral lower lobes which has progressed. No pneumothorax. Mucoid material seen within the trachea with near complete opacification of the bilateral lower lobe bronchi. This has also progressed in the interval. There are additional small areas consolidation within the bilateral upper lobes posteriorly, unchanged. Scattered small hyperdense foci within the bilateral lower lobes persist. IMPRESSION: 1. No evidence for central pulmonary embolus. 2. Complete consolidation of the bilateral lower lobes with near complete opacification of the bilateral lower lobe bronchi. This has progressed in the interval. This is likely due to a combination of the suspected aspiration pneumonia and increase in size in the small to moderate bilateral pleural effusions. 3. Additional findings as described above. ACT 112: Negative or not required by law. Electronically signed by: Dipesh Aguayo M.D. 09/30/2022 3:54 PM I & O Totals 24 Hours 09/30/22 10/01/22 10/02/22 06:59 06:59 06:59 Intake Total 2588.334 / 2588.334 845 / 845 115 / 115 Output Total 2225 / 2225 1700 / 1700 Balance 363.334 / 363.334 -855 / -855 115 / 115 Cumulative 09/19/22 09:23 thru 10/01/22 12:40 Intake Total 46305.762 Output Total 68546 Balance 4243.762 RT Ventilator Mngmt (Last Documented) Ventilator Ordered Settings Respiratory Rate 18 10/01/22 08:10 Ventilator - PT Measurements Respiratory Rate 18 PG Care Time/CCT Total # of Minutes Spent Total Time Spent with Patient: Total time spent is greater than 50% in coordination of care (as documented) at patient's floor/unit and/or counseling patient: Coding Level of Care Code 78400 Initial Inpt Care Lvl 3 Diagnoses Aspiration into airway T17.908A
--- NOTE | 2022-10-01 16:19 | Palliative Care Consultation ---
Date of Consultation October 01, 2022 Assessment & Plan (1) Dyspnea: With chronic aspiration and bilateral pneumonia. She denies feeling short of breath at rest. Her O2sat is 94% on room air. She has been on nasal cannula through most of her stay and required oxymask five days ago. (2) Palliative care encounter: I used the white board to explain my role as palliative care physician. I asked Rubi about her understanding of her illness but she was not really able to answer that. We talked about whether she felt there would be limits to the care that she would want if she were seriously ill. She is currently a full code. She initially told me that there were no limits. When I asked her if there were any interventions that she would not want, she replied "life support". She was unable to answer yes or no to that question. She told me to talk with her . I called twice but was not able to reach him. I was subsequently able to reach Mr. Arzate on the phone. He tells me that he and Rubi have never really discussed what her wishes would be but that she has talked about this a little bit with her daughters. He tells me that he would not want us "to just let her lay there and ". He feels that she would want to be treated if she "had a heart attack". He tells me that he had two heart attacks and that he knows that she can be saved. We did discuss that Rubi's situation is different than having a heart attack. We discussed possibility of needing intubation and ventilator support if she had progression of her pneumonia. He tells me that he is sure that won't happen if she gets the medication that she needs. We discussed hope that her condition will improve and worry about whether she would want intubation if she her breathing status declined. He is quite certain that she would want intubation and full code if needed. He does say that she wouldn't want to be on life support "for two or three months". He is agreeable to further discussion about goals of care. Palliative care will follow. History of Present Illness Reason for Consultation: goals of care Requesting Physician: Dr. Mcclain Attending Physician: Radha Del Cid MD History of Present Illness 82 yo lady who was admitted with weakness and a fall at home. She has a comminuted pelvic fracture. She is deaf and able to communicate by writing on a white board. She denies pain or shortness of breath and tells me that she's comfortable. She feels that she is feeling a little better than she had been, but "not good". She has chronic aspiration and had PEG tube placement during this admission. She was hypoxic on admission and is being treated for aspiration pneumonia. Unfortunately, she has worsening bibasilar and perihilar opacities on chest xray despite 7 days of zosyn. She had a repeat chest CT due to disease progression which was negative for PE and showed complete consolidation of bilateral lower lobes with near complete opacification of bilateral lower lobe bronchi. She is resting comfortably and easily arousable. Allergies Allergy/AdvReac Type Severity Reaction Status Date / Time Cephalosporins Allergy Intermediate RASH Verified 09/19/22 14:57 cefazolin Allergy Unknown UNKNOWN Verified 09/19/22 14:57 donepezil [From Aricept] Allergy Unknown Unknown Verified 09/19/22 14:57 adhesive tape Allergy Unknown Verified 09/19/22 14:57 amlodipine [From Norvasc] Allergy Edema Verified 09/19/22 14:57 Sulfa (Sulfonamide Allergy Unknown Verified 09/19/22 14:57 Antibiotics) Home Medications Medication Instructions Recorded Confirmed Type aspirin 81 mg tablet,delayed 81 mg PO DAILY 10/21/18 09/19/22 History release (Aspir-) pediatric multivitamin no.7-folic 1 tab PO DAILY 10/21/18 09/19/22 History acid 100 mcg chewable tablet (Flintstones Tab Chew) acetaminophen 500 mg tablet 500 mg PO Q6H PRN Pain 09/05/20 09/19/22 History (Tylenol Extra Strength) lisinopril 5 mg tablet 5 mg PO DAILY #90 tabs 07/11/22 09/19/22 Rx cinacalcet 30 mg tablet 30 mg PO DAILY #30 tabs 08/27/22 09/19/22 Rx sodium chloride 1 gram tablet 1 g PO BID 30 days #60 tabs 09/02/22 09/19/22 Rx escitalopram oxalate 5 mg tablet 5 mg PO HS 09/19/22 09/19/22 History Patient History Medical History Acoustic neuroma Anemia Depression Gait disturbance Hearing loss Hx of cataract Hypercalciuria Hypertension Hypertensive urgency Hypokalemia Osteoporosis SIADH (syndrome of inappropriate ADH production) Vitamin D deficiency Surgical History Feeding by G-tube (09/26/22) p Esophagogastroduodenoscopy with Gastric Biopsy - Iglesia Stovall DO s Gastric Tube Placement - Iglesia Stovall DO History of craniotomy excision of acoustic neuroma Hx of cataract surgery Hx of cholecystectomy Hx of hysterectomy Hx of total knee replacement Family History Aunt Breast cancer Brother Colorectal cancer Heart problem Mother Heart problem Father Heart problem Sister Multiple sclerosis Other Family history non-contributory Denies family history of Ovarian cancer Prostate cancer Myocardial infarction Social History Smoking Status: Never smoker Second Hand Exposure: No; Hx Alcohol Use: No Hx Substance Use: No Preferred Language: Citizen Of [place] Communication Ability: Effective Visual Impairment: No Limitations Hearing Ability: Hard of Hearing Rehabilitation Therapy Technician Required: No Beliefs That Will Affect Care: None marital status: Current Living Situation: Spouse current occupational status: retired How many Children do You have: 2 Feels Safe at Home: Yes Childhood Exposure to Second-Hand Smoke: No caffeine: Yes Dental Care, Regularly: Yes Physical Activity Frequency: Does not Exercise Seatbelt Use: always Sunscreen Use: No Assistive Devices: Walker Review of Systems Review of Systems: ESAS Pain 0/3 Dyspnea 0/3 Nausea 0/3 Drowsiness 1/3 Anxiety 1/3 PPS 30% She had been ambulating with a walker at home prior to admission Physical Exam Constitutional: no acute distress ENMT: Mouth: + dry oral mucous membranes Respiratory: normal respiratory effort; no labored breathing Cardiovascular: Rate/Rhythm: regular rate and regular rhythm Musculoskeletal: Extremities: + muscle atrophy Skin: warm and dry Neurologic: Speech / Cognition: normal cognition Results & Data ([facility]) Vital Signs (Past 12 Hours) Vital Signs Temp Pulse Resp BP BP Pulse Ox O2 Del Method 10/01/22 15:08 97.7 F 85 18 92/48 L 94 Room Air 10/01/22 10:58 Nasal Cannula 10/01/22 08:10 78 18 94 Nasal Cannula 10/01/22 06:57 97.2 F L 85 22 148/80 H 95 Nasal Cannula O2 Flow Rate 10/01/22 15:08 10/01/22 10:58 2 10/01/22 08:10 3 10/01/22 06:57 3 PG Care Time/CCT Total # of Minutes Spent Total Time Spent: 57 Total Time Spent with Patient: Total time spent is greater than 50% in coordination of care (as documented) at patient's floor/unit and/or counseling patient: goals of care, code status, family education and support Coding Level of Care Code 34127 Initial Inpt Care Lvl 2 Diagnoses Dyspnea R06.00 Palliative care encounter Z51.5
[2022-10-01] MEDS: MELATONIN 3 MG TAB PO SCH (20:30)
[2022-10-01] MEDS: ESCITALOPRAM OXALATE 10 MG TAB PO SCH (20:30)
--- NOTE | 2022-10-01 20:35 | Hospitalist Progress Note ---
Date of Service October 01, 2022 Assessment & Plan (1) Aspiration pneumonia: Plan: b/l lower lobe pneumonia - extensive. Has now completed 7 days of ZOsyn, looks improved compared to previous description She continues with failure to thrive and leukocytosis but WNC down a bit today MRSA swab negative; thus has not received MRSA coverage. Clinically worsening -- due to relative adrenal insufficiency (cortisol level returned at 12 only)? Was given some steroids but then stopped by PULM Due to ongoing aspiration and inability to clear secretions Appreciate PULM consult PEG tube does not prevent aspiration Continue pulm toilet, flutter valve, saline nebs, chest PT No PE seen on CTA chest The pleuritic pain, however, is likely due to the extensive LLL pneumonia with parapneumonic effusion. Empyema is possible but unlikely. Palliative care consultation appreciated (2) Aspiration into airway: Plan: Video swallow on 09/23 was markedly abnormal with evidence of aspiration with all consistencies. Thus, s/p g-tube placement on 09/26. dysphagia 2nd to prior nerve damage from treatment for acoustic neuroma? other cause? (3) Sacral fracture: Plan: nondisplaced sacral fracture on admission imaging. Pain control PRN. Appreciate Orthopedics consult - WBAT, but has essentially been bed-bound since admission. (4) Nausea: Plan: resolved 2nd to gastritis as seen on EGD during g-tube placement? (5) Hearing loss: Plan: Patient hearing loss is chronic and communicates with family members using iPad dictator. 2nd to acoustic neuroma s/p surgery on right has another acoustic neuroma on left (per ) (6) Acute hyponatremia: Plan: Na generally holds in high 120 - 130 range. 2nd SIADH. Na levels had been very stable until tube feedings with free water flushes were started. 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 likely also the reson for her acoustic neuromas (9) Hyperparathyroidism: Plan: Calcium stable. Resumed cinacalcet via G-tube. (10) Hypertension: Plan: received one dose decadron on 11/1 but now stopped BPs still low normal some due to anemia likely follow (11) Gastritis with hemorrhage: Plan: as seen on EGD during g-tube placement. cont PPI bid. serial CBC stable since her G-tube placement. hold asa and any NSAIDs. (12) Acute blood loss anemia: Plan: 2nd to #11 H/H low but acceptable again today at 8.7 Plan DVT proph- heparin 5000 BID Dispo-continued stay, Palliative consult appreciated. Plan for family meeting for goals of care discussion on Plan for discharge to [facility] when medically stable-possibly ? Admission and Anticipated Discharge Date Admission Date: September 19, 2022 Subjective Pt reports some cough, no pain. Used white board to communicate. Wants to know how she got pneumonia. We discussed aspiration. She is using her flutter valve. Review of Systems 2 Review of Systems: All systems reviewed & are unremarkable except as noted in HPI & below Physical Exam Physical Exam: gen - alert and awake, NAD, thin heart - RRR, s1 s2, no murmur lungs - very poor aeration today, decreased BS bases,no wheezes abd - soft NT ND BS+; g-tube insertion site clean, no drainage ext - no edema HENT - severe hearing impairment speech - phonation is abnormal, likely due to chronic hearing loss Results & Data Results & Data ([facility]) Vital Signs (Past 12 Hours) Vital Signs Temp Pulse Resp BP Pulse Ox O2 Del Method O2 Flow Rate 10/01/22 19:23 87 20 94 Nasal Cannula 2 10/01/22 15:08 36.5 C 85 18 92/48 L 94 Room Air 10/01/22 10:58 Nasal Cannula 2 Laboratory Results 10/01/22 10/01/22 Range/Units 09:05 09:05 WBC 15.56 H (4.8-10.8) K/ul RBC 2.89 L (3.93-5.22) M/uL Hgb 8.7 L (12.0-16.0) g/dl Hct 25.6 L (34.1-44.9) % MCV 88.6 (80.0-100.0) fL MCH 30.1 (25.0-34.0) pg MCHC 34.0 (32.0-36.0) g/dL RDW Std Deviation 46.7 H (36.4-46.3) fL RDW Coeff of Missy 14.6 H (11.5-14.5) % Plt Count 460 H (130-400) K/uL MPV 10.3 (9.4-12.3) fL Sodium 131 L (136-145) mmol/L Potassium 4.7 (3.5-5.1) mmol/L Chloride 96 L (98-107) mmol/L Carbon Dioxide 29 (21-32) mmol/L Anion Gap 6 (3-11) BUN 16 (6-23) mg/dl Creatinine 0.42 L (0.6-1.2) mg/dl Est Cr Clr Drug Dosing 75.1 ml/min Est GFR ( Amer) 109.9 ml/min Est GFR (Non-Af Amer) 94.8 ml/min BUN/Creatinine Ratio 38.1 H (10-20) Glucose 181 H (70-99(Fasting)) mg/dl Calcium 8.9 (8.5-10.1) mg/dl PG Care Time/CCT Total # of Minutes Spent Total Time Spent with Patient: Total time spent is greater than 50% in coordination of care (as documented) at patient's floor/unit and/or counseling patient: Coding Level of Care Code 81905 Subseq Hosp Care Lvl 2 Diagnoses Aspiration pneumonia J69.0 Aspiration into airway T17.908A Sacral fracture S32.10XA Nausea R11.0 Hearing loss H91.90 Acute hyponatremia E87.1 SIADH (syndrome of inappropriate ADH production) E22.2 NF2 (neurofibromatosis 2) Q85.02 Hyperparathyroidism E21.3 Hypertension I10 Gastritis with hemorrhage K29.71 Acute blood loss anemia D62
[2022-10-01] MEDS: SENNOSIDES 8.8 MG/5 ML UDC PO SCH (20:55)
[2022-10-02] MEDS: guaiFENesin SUGAR FREE 100 MG/5 ML UDC GT SCH ×4 (00:02→18:25)
[2022-10-02] MEDS: TUBE FEEDING WATER FLUSH PEG SCH ×4 (06:00→19:19)
[2022-10-02] MEDS: SODIUM CHLOR 7% 4 ML NEB NEB SCH ×2 (07:23→19:51)
[2022-10-02] MEDS: PANTOprazole 40 MG in SYRINGE 0 ML IV SCH ×2 (08:35→21:56)
[2022-10-02] MEDS: ACETAMINOPHEN 500 MG TAB PO SCH ×3 (08:42→21:15)
[2022-10-02] MEDS: lisinopril 5 MG TAB PO SCH (08:43)
[2022-10-02] MEDS: CINACALCET HCL 30 MG TAB PO SCH (08:45)
[2022-10-02] MEDS: MULTI VIT W/MINERALS LIQUID 15 ML UDP PEG SCH (08:52)
[2022-10-02] MEDS: POTASSIUM CHLORIDE 20 MEQ/15 ML UDC PEG SCH (08:55)
[2022-10-02] MEDS: SODIUM CHLORIDE 1 GM TABLET PO SCH ×2 (08:57→21:17)
[2022-10-02] MEDS: SENNOSIDES 8.8 MG/5 ML UDC PO SCH (08:57)
[2022-10-02] MEDS: HEPARIN SOD 5,000 UNIT/0.5 ML VIAL SQ SCH ×2 (08:58→21:16)
[2022-10-02 12:00] LABS: Basophils # (auto) 0.01 K/uL (0-0.2); Basophils % (auto) 0.1 %; Eosinophils # (auto) 0.02 K/uL (0-0.50); Eosinophils % (auto) 0.1 %; Hematocrit (blood only) 25.7 % (34.1-44.9); Hemoglobin 8.4 g/dl (12.0-16.0); Immature Granulocytes # (auto) 0.25 K/uL (0.00-0.02); Immature Granulocytes % (auto) 1.7 %; Lymphocytes # (auto) 0.63 K/uL (1.2-3.4); Lymphocytes % (auto) 4.2 %; Mean Corpuscular Hemoglobin 29.1 pg (25.0-34.0); Mean Corpuscular Hgb Conc 32.7 g/dL (32.0-36.0); Mean Corpuscular Volume 88.9 fL (80.0-100.0); Mean Platelet Volume 10.4 fL (9.4-12.3); Monocytes # (auto) 0.94 K/uL (0.24-0.82); Monocytes % (auto) 6.3 %; Neutrophils % (auto) 87.6 %; Platelet Count 588 K/uL (130-400); RDW Coefficient of Variation 15.2 % (11.5-14.5); RDW Standard Deviation 48.1 fL (36.4-46.3); Red Blood Count 2.89 M/uL (3.93-5.22); White Blood Count 14.95 K/ul (4.8-10.8)
[2022-10-02 12:23] LABS: BUN Creatinine Ratio 42.9 (10-20); Calcium 8.9 mg/dl (8.5-10.1); Creatinine Clr Calc Pharmacy 75.1 ml/min; Est GFR (African American) 109.9 ml/min; Est GFR (Non-African American) 94.8 ml/min; Potassium 4.8 mmol/L (3.5-5.1)
--- NOTE | 2022-10-02 14:57 | Hospitalist Progress Note ---
Date of Service October 02, 2022 Assessment & Plan (1) Aspiration pneumonia: Plan: b/l lower lobe pneumonia - extensive. Has now completed 7 days of ZOsyn, looks improved compared to previous description She continues with failure to thrive and leukocytosis but WBC down from previous MRSA swab negative; thus has not received MRSA coverage. Steroids discontinued by PULM after 2 doses Due to ongoing aspiration and inability to clear secretions Appreciate PULM consult PEG tube does not prevent aspiration Continue pulm toilet, flutter valve, saline nebs, chest PT No PE seen on CTA chest The pleuritic pain, however, is likely due to the extensive LLL pneumonia with parapneumonic effusion. Empyema is possible but unlikely. Palliative care consultation appreciated Family aware of possibility of recurrent aspiration Brain MRI IACs from 08/2021 reviewed from [facility] shows chronic cystic changes from previous cranial surgeries and stable size of left acoustic Schwanomma Very well could have a neurologic cause of her dysphagia (2) Aspiration into airway: Plan: Video swallow on 09/23 was markedly abnormal with evidence of aspiration with all consistencies. Thus, s/p g-tube placement on 09/26. dysphagia 2nd to prior nerve damage from treatment for acoustic neuroma? other cause? (3) Sacral fracture: Plan: nondisplaced sacral fracture on admission imaging. Pain control PRN. Appreciate Orthopedics consult - WBAT, but has essentially been bed-bound since admission. (4) Nausea: Plan: resolved 2nd to gastritis as seen on EGD during g-tube placement? (5) Hearing loss: Plan: Patient hearing loss is chronic and communicates with family members using iPad dictator. 2nd to acoustic neuroma s/p surgery on right has another acoustic neuroma on left (per ) (6) Acute hyponatremia: Plan: Na generally holds in high 120 - 130 range. 2nd SIADH. Na levels had been very stable until tube feedings with free water flushes were started. 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 likely also the reson for her acoustic neuromas (9) Hyperparathyroidism: Plan: Calcium stable. continue cinacalcet via G-tube. (10) Hypertension: Plan: received 2 doses decadron but now stopped BPs still low normal some due to anemia likely follow (11) Gastritis with hemorrhage: Plan: as seen on EGD during g-tube placement. cont PPI bid. serial CBC stable since her G-tube placement. hold asa and any NSAIDs. (12) Acute blood loss anemia: Plan: 2nd to #11 H/H low but acceptable again today at 8.4 Plan DVT proph- heparin 5000 BID Dispo-continued stay, Palliative consult appreciated. Plan for family meeting for goals of care discussion on Plan for discharge to [facility] when medically stable-possibly ? Discussed her care at length with and daughter at bedside on 10/02 Admission and Anticipated Discharge Date Admission Date: September 19, 2022 Subjective Pt reports productive cough, denies SOB, no pain anywhere. Does not yet feel ready for discharge. She had an extensive conversation today with MARIA E Walsh regarding Palliative issues and changed her code status to DNR/DNI. Physical Exam Physical Exam: gen - alert and awake, NAD, thin heart - RRR, s1 s2, no murmur lungs - very poor aeration today, decreased BS bases,no wheezes abd - soft NT ND BS+; g-tube insertion site clean, no drainage ext - no edema HENT - severe hearing impairment speech - phonation is abnormal, likely due to chronic hearing loss Results & Data Results & Data ([facility]) Vital Signs (Past 12 Hours) Vital Signs Temp Pulse Resp BP Pulse Ox O2 Del Method O2 Flow Rate 10/02/22 14:25 36.3 C L 81 16 104/54 L 95 Nasal Cannula 3 10/02/22 08:16 Nasal Cannula 2 10/02/22 07:59 36.5 C 63 16 130/64 98 Nasal Cannula 2 10/02/22 07:24 80 18 93 Nasal Cannula 2 Laboratory Results labs reviewed PG Care Time/CCT Total # of Minutes Spent Total Time Spent with Patient: Total time spent is greater than 50% in coordination of care (as documented) at patient's floor/unit and/or counseling patient: Coding Level of Care Code 35333 Subseq Hosp Care Lvl 2 Diagnoses Aspiration pneumonia J69.0 Aspiration into airway T17.908A Sacral fracture S32.10XA Nausea R11.0 Hearing loss H91.90 Acute hyponatremia E87.1 SIADH (syndrome of inappropriate ADH production) E22.2 NF2 (neurofibromatosis 2) Q85.02 Hyperparathyroidism E21.3 Hypertension I10 Gastritis with hemorrhage K29.71 Acute blood loss anemia D62
--- NOTE | 2022-10-02 16:31 | Pulmonology Progress Note ---
Date of Service October 02, 2022 Assessment & Plan (1) Aspiration into airway: Plan Attending: Dr. Mcclain Impression: 82-year-old female with aspiration event secondary to complications from her acoustic neuroma now status post PEG tube placement. While the PEG tube does provide access to enable the patient to receive nutrition and medications, it does not prevent aspiration of oropharyngeal secretions which is likely an ongoing issue for the patient. This was explained in detail to the patient and her including graphics. Negative procalcitonin, negative cultures, and absence of fever, it is unlikely that this the patient has an active ongoing infection and Zosyn for 7 days should have been adequate to treat any underlying infectious process. There is no role for steroids at this point in time. A low random cortisol is only helpful in the setting of hypotensive patient's and would not apply to this patient. Recommendations: 1. Recurrent aspiration: Unfortunately this is not an easily fixable solution. The patient will continue to aspirate despite the PEG tube. The patient and are aware that the only solution is surgical and is not guaranteed to solve her problems. She most likely will continue to aspirate oropharyngeal secretions and focusing on symptom therapy is going to be a more effective long-term strategy. The agree with this and consequently, we will change patient to DNR/DNI status and not escalate care should the patient have further pulmonary complications. Dr. Walter from palliative care was notified of the code change and will have meeting with family tomorrow and complete POLST form versus help with advanced directive as needed. Patient's daughter, Gretchen Bacon, is an SHOT PACKER at [employer]. I have agreed to discuss the patient detail with the daughter when she arrives. as well as nurse are aware to [employer] text me or call and if I am not in the hospital I will talk to her by phone. 2. Continue hypertonic saline, and chest physiotherapy. Continue with flutter valve to see if the patient can perform this. Patient was also educated on aspiration precautions including elevation of bed while getting tube feeds. We talked about physiology with tube feeds traveling back up the esophagus past the epiglottis into the trachea causing pneumonia. Patient has been resistant to sit upright as she is uncomfortable and does prefer to recline. This was reinforced with her as well as her . 3. Palliative care was consulted yesterday and the patient was seen by Dr. Katarzyna Walter. I contacted Dr. Walter by [employer] text and updated her on the status of care for the patient. She will meet with family tomorrow to define care plan and provide any further follow-up regarding disposition. 4. Antibiotics and steroids discontinued yesterday. 5. Bronchoscopy for lavage of secretions discussed at length. They are aware that this would be a temporizing measure at best and that the risk of the procedure would most likely outweigh the benefit as she would have recurrent secretions reaccumulate with minimal improvement for a substantial amount of time. I discussed this case at length with Dr. Del Cid and at this time, the pulmonary service will sign off. Please feel free to reconsult of contact us if we can be of further service or answer any additional questions. Admission and Anticipated Discharge Date Admission Date: September 19, 2022 Subjective Attending: Dr. Mcclain Patient seen and examined in room 385. Her is present. Patient is only able to communicate with iPad. I spent approximately 60 minutes with the patient and her talking about aspirations and the consequences of neurological dysfunction of the esophagus. At this time, patient states that she does not have any nausea or vomiting. She does have some discomfort at the PEG tube site but no erythema or discharge. She has no fever or chills. She denies any shortness of breath. She has a somewhat mild cough with some sputum with yellow sputum color. No hemoptysis. No hematemesis. Patient has no acute pulmonary complaints at this time. Review of Systems Review of Systems: A total of 10 systems was reviewed and is negative other than as listed in the HPI Physical Exam Physical Exam: GENERAL : No acute distress. Patient is able to use an iPad for communication. I was able to type out questions and responses. Patient could do a combination of head shake head nod replying iPad and communication. EYES: No icterus, gaze conjugate. Pupils equal round and reactive to light NOSE: No evidence of epistaxis MOUTH: No lesions or candidiasis. Tongue is midline NECK: Supple LUNGS: CTA B/L, no wheezes, rales or rhonchi. Good inspirational effort HEART: Regular, rate controlled ABDOMEN: Soft, NT, ND, BS Present. PEG tube is secure with the bumper in place. She does have some tenderness with any kind of movement of the PEG tube. There is no erythema or discharge from around the os. EXTREMITIES: No LE edema, pedal pulses intact NEURO: A&OX3 Results & Data Results & Data ([facility]) Vital Signs (Past 12 Hours) Vital Signs Temp Pulse Resp BP Pulse Ox O2 Del Method O2 Flow Rate 10/02/22 14:25 36.3 C L 81 16 104/54 L 95 Nasal Cannula 3 10/02/22 08:16 Nasal Cannula 2 10/02/22 07:59 36.5 C 63 16 130/64 98 Nasal Cannula 2 10/02/22 07:24 80 18 93 Nasal Cannula 2 Critical Care Results & Data Vital Signs (Past 12 Hours) Vital Signs Temp Pulse Resp BP Pulse Ox O2 Del Method O2 Flow Rate 10/02/22 14:25 36.3 C L 81 16 104/54 L 95 Nasal Cannula 3 10/02/22 08:16 Nasal Cannula 2 10/02/22 07:59 36.5 C 63 16 130/64 98 Nasal Cannula 2 10/02/22 07:24 80 18 93 Nasal Cannula 2 Lab & Micro Results (Past 24 Hours) RBC 2.89 M/uL (3.93-5.22) L 10/02/22 WBC 14.95 K/ul (4.8-10.8) H 10/02/22 Hgb 8.4 g/dl (12.0-16.0) L 10/02/22 Hct 25.7 % (34.1-44.9) L 10/02/22 MCV 88.9 fL (80.0-100.0) 10/02/22 MCH 29.1 pg (25.0-34.0) 10/02/22 MCHC 32.7 g/dL (32.0-36.0) 10/02/22 RDW Standard Deviation 48.1 fL (36.4-46.3) H 10/02/22 RDW Coefficient of Variation 15.2 % (11.5-14.5) H 10/02/22 Plt Count 588 K/uL (130-400) H 10/02/22 MPV 10.4 fL (9.4-12.3) 10/02/22 Neutrophils (%) (Auto) 87.6 % 10/02/22 Lymphocytes (%) (Auto) 4.2 % 10/02/22 Monocytes # (Auto) 0.94 K/uL (0.24-0.82) H 10/02/22 Eosinophils # (Auto) 0.02 K/uL (0-0.50) 10/02/22 Immature Granulocyte % (Auto) 1.7 % 10/02/22 Neutrophils # (Auto) 13.10 K/uL (1.4-6.5) H 10/02/22 Lymphocytes # (Auto) 0.63 K/uL (1.2-3.4) L 10/02/22 Monocytes # (Auto) 0.94 K/uL (0.24-0.82) H 10/02/22 Eosinophils # (Auto) 0.02 K/uL (0-0.50) 10/02/22 Basophils # (Auto) 0.01 K/uL (0-0.2) 10/02/22 Immature Granulocyte # (Auto) 0.25 K/uL (0.00-0.02) H 10/02 Na 131 mmol/L (136-145) L 10/02/22 K 4.8 mmol/L (3.5-5.1) 10/02/22 Cl 97 mmol/L (98-107) L 10/02/22 CO2 30 mmol/L (21-32) 10/02/22 Anion Gap 4 (3-11) 10/02/22 BUN 18 mg/dl (6-23) 10/02/22 Creatinine 0.42 mg/dl (0.6-1.2) L 10/02/22 Estimated GFR ( Amer) 109.9 ml/min 10/02/22 Estimated GFR (Non-Af Amer) 94.8 ml/min 10/02/22 BUN/Creatinine Ratio 42.9 (10-20) H 10/02/22 Glu 112 mg/dl (70-99(Fasting)) H 10/02/22 Ca 8.9 mg/dl (8.5-10.1) 10/02/22 Calcium Level 8.9 mg/dl (8.5-10.1) 10/02/22 11:20 I & O Totals 24 Hours 10/01/22 10/02/22 10/03/22 06:59 06:59 06:59 Intake Total 845 / 845 115 / 115 Output Total 1700 / 1700 1600 / 1600 750 / 750 Balance -855 / -855 -1485 / -1485 -750 / -750 Cumulative 09/19/22 09:23 thru 10/02/22 14:25 Intake Total 29228.762 Output Total 79034 Balance 1893.762 RT Ventilator Mngmt (Last Documented) Ventilator Ordered Settings Respiratory Rate 16 10/02/22 14:25 Ventilator - PT Measurements Respiratory Rate 16 PG Care Time/CCT Total # of Minutes Spent Total Time Spent with Patient: Total time spent is greater than 50% in coordination of care (as documented) at patient's floor/unit and/or counseling patient:60 minutes of face to face time with the patient and the in her room Coding Level of Care Code 41465 Subseq Hosp Care Lvl 3 (25 - SIGNIFICANT, SEPARATELY IDENTIFIABLE ) Diagnoses Aspiration into airway T17.908A Time Spent (min) 60
[2022-10-02] MEDS: ESCITALOPRAM OXALATE 10 MG TAB PO SCH (21:16)
[2022-10-02] MEDS: MELATONIN 3 MG TAB PO SCH (21:16)
[2022-10-02] MEDS: SENNOSIDES 8.8 MG/5 ML UDC PEG SCH (21:18)
[2022-10-02] MEDS: ONDANSETRON INJ 2 MG/ML 2 ML VIAL IV PRN (22:46)
[2022-10-02] MEDS: MoRPHine SULFATE 2 MG/ML CARP IV PRN (22:51)
[2022-10-03] MEDS: guaiFENesin SUGAR FREE 100 MG/5 ML UDC GT SCH ×4 (00:25→18:42)
[2022-10-03] MEDS: TUBE FEEDING WATER FLUSH PEG SCH ×5 (00:25→21:10)
[2022-10-03] MEDS: MoRPHine SULFATE 2 MG/ML CARP IV PRN (05:52)
[2022-10-03] MEDS: ONDANSETRON INJ 2 MG/ML 2 ML VIAL IV PRN (05:52)
[2022-10-03] MEDS: SODIUM CHLOR 7% 4 ML NEB NEB SCH ×2 (07:18→19:42)
[2022-10-03] MEDS: ACETAMINOPHEN 500 MG TAB PO SCH ×3 (10:08→21:19)
[2022-10-03] MEDS: CINACALCET HCL 30 MG TAB PO SCH (10:08)
[2022-10-03] MEDS: MULTI VIT W/MINERALS LIQUID 15 ML UDP PEG SCH (10:10)
[2022-10-03] MEDS: PANTOprazole 40 MG in SYRINGE 0 ML IV SCH ×2 (10:10→21:18)
[2022-10-03] MEDS: POTASSIUM CHLORIDE 20 MEQ/15 ML UDC PEG SCH (10:11)
[2022-10-03] MEDS: SODIUM CHLORIDE 1 GM TABLET PO SCH ×2 (10:12→21:20)
[2022-10-03] MEDS: SENNOSIDES 8.8 MG/5 ML UDC PEG SCH ×2 (10:12→21:20)
[2022-10-03] MEDS: HEPARIN SOD 5,000 UNIT/0.5 ML VIAL SQ SCH ×2 (10:39→21:17)
[2022-10-03] MEDS: lisinopril 5 MG TAB PO SCH (13:49)
--- NOTE | 2022-10-03 17:02 | Palliative Care Progress Note ---
Date of Service October 03, 2022 Assessment & Plan (1) Dyspnea: Plan: With aspiration pneumonia, improved (2) Leg weakness, bilateral: Plan: Plan for discharge to [facility] or [facility] for rehab We discussed more intense rehab schedule at [facility] and I asked her if she was up for that, she nodded. Family goal is for her to be able to return home. (3) Palliative care encounter: Plan: I met with Mr. Arzate and daughters, Gretchen and Bryanna. Rubi had deferred further discussion about goals of care to them. Mr. Arzate tells me that he and Rubi have indeed talked about this and that Rubi's mother had a living will which they still have at home. He tells me that Rubi said that is exactly what she would want for her care. In general, family agrees that she would not want resuscitation, intubation or ventilator support if she were seriously ill. She would not want dialysis or other life prolonging measures if she were not able to recover. We discussed rehospitalization and family feels that she would want that, including treatment for treatable illness such as infection. Mr. Arzate will bring in advance directive for review. Will complete POLST form for discharge. Admission and Anticipated Discharge Date Admission Date: September 19, 2022 Subjective Complains of feeling tired. Denies pain or shortness of breath. Answers yes when asked if comfortable. Review of Systems Review of Systems: ESAS Pain 0/3 Dyspnea 0/3 Nausea 0/3 Drowsiness 1/3 PPS 40% Physical Exam Constitutional: + frail appearing; no acute distress drowsy, easily arousable ENMT: Ears: + hearing impairment Mouth: oral mucous membranes not dry Respiratory: normal respiratory effort; no labored breathing Gastrointestinal (Abdomen): PEG tube Musculoskeletal: Extremities: + muscle atrophy Skin: warm and dry Neurologic: awake; not confused Results & Data ([facility]) Vital Signs (Past 12 Hours) Vital Signs Temp Pulse Resp BP Pulse Ox O2 Del Method O2 Flow Rate 10/03/22 13:47 74 18 136/69 Nasal Cannula 2 10/03/22 07:41 98.6 F 74 20 114/54 L 99 Nasal Cannula 2 10/03/22 07:20 67 20 98 Nasal Cannula 2 PG Care Time/CCT Total # of Minutes Spent Total Time Spent: 30 Total Time Spent with Patient: Total time spent is greater than 50% in coordination of care (as documented) at patient's floor/unit and/or counseling patient: goals of care, family education and support Coding Level of Care Code 96426 Subseq Hosp Care Lvl 2 Diagnoses Dyspnea R06.00 Leg weakness, bilateral R29.898 Palliative care encounter Z51.5
--- NOTE | 2022-10-03 20:18 | Hospitalist Progress Note ---
Date of Service October 03, 2022 Assessment & Plan (1) Aspiration pneumonia: Plan: b/l lower lobe pneumonia - extensive. Has now completed 7 days of Zosyn, is improved MRSA swab negative; thus has not received MRSA coverage. Steroids discontinued by PULM after 2 doses Due to ongoing aspiration and inability to clear secretions Appreciate PULM consult PEG tube does not prevent aspiration Continue pulm toilet, flutter valve, saline nebs, chest PT No PE seen on CTA chest The pleuritic pain was likely due to the extensive LLL pneumonia with parapneumonic effusion. Empyema is possible but unlikely. Pain now resolved Palliative care consultation appreciated Family aware of possibility of recurrent aspiration Brain MRI IACs from 08/2021 reviewed from [facility] shows chronic cystic changes from previous cranial surgeries and stable size of left acoustic Schwanomma Very well could have a neurologic cause of her dysphagia -continue supplemental O2 as needed to keep POx> 92% (2) Aspiration into airway: Plan: Video swallow on 09/23 was markedly abnormal with evidence of aspiration with all consistencies. Thus, s/p g-tube placement on 09/26. dysphagia 2nd to prior nerve damage from treatment for acoustic neuroma? other cause? (3) Sacral fracture: Plan: nondisplaced sacral fracture on admission imaging. Pain control PRN. Appreciate Orthopedics consult - WBAT, but has essentially been bed-bound since admission. (4) Nausea: Plan: resolved 2nd to gastritis as seen on EGD during g-tube placement? (5) Hearing loss: Plan: Patient hearing loss is chronic and communicates with family members using iPad dictator. 2nd to acoustic neuroma s/p surgery on right has another acoustic neuroma on left (per ) (6) Acute hyponatremia: Plan: Na generally holds in high 120 - 130 range. 2nd SIADH. Na levels had been very stable until tube feedings with free water flushes were started. 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 likely also the reson for her acoustic neuromas (9) Hyperparathyroidism: Plan: Calcium stable. continue cinacalcet via G-tube. (10) Hypertension: Plan: received 2 doses decadron but now stopped BPs still low normal some due to anemia likely follow (11) Gastritis with hemorrhage: Plan: as seen on EGD during g-tube placement. cont PPI bid. serial CBC stable since her G-tube placement. hold asa and any NSAIDs. (12) Acute blood loss anemia: Plan: 2nd to #11 H/H low but acceptable at 8.4 check folate, Fe studies in AM recent B12 normal a few weeks ago Plan DVT proph- heparin 5000 BID Dispo-continued stay, Palliative consult appreciated-had family meeting for goals of care discussion -POLST to be filled out prior to discharge to rehab tomorrow Plan for discharge to [facility] hopefully Friday Admission and Anticipated Discharge Date Admission Date: September 19, 2022 Subjective Pt sleeping in the evening when I saw her, wakes up easily to touch. Denies problems. Palliative Care met with her and her family today. Review of Systems Review of Systems: All systems reviewed & are unremarkable except as noted in HPI & below Physical Exam Physical Exam: gen - alert and awake, NAD, thin heart - RRR, s1 s2, no murmur lungs - CTAB no wcr abd - soft NT ND BS+; g-tube insertion site clean, no drainage ext - no edema HENT - severe hearing impairment speech - phonation is abnormal, likely due to chronic hearing loss Results & Data Results & Data ([facility]) Vital Signs (Past 12 Hours) Vital Signs Pulse Resp BP Pulse Ox O2 Del Method O2 Flow Rate 10/03/22 19:42 81 18 95 Nasal Cannula 2 10/03/22 13:47 74 18 136/69 Nasal Cannula 2 PG Care Time/CCT Total # of Minutes Spent Total Time Spent with Patient: Total time spent is greater than 50% in coordination of care (as documented) at patient's floor/unit and/or counseling patient: Coding Level of Care Code 53285 Subseq Hosp Care Lvl 2 Diagnoses Aspiration pneumonia J69.0 Aspiration into airway T17.908A Sacral fracture S32.10XA Nausea R11.0 Hearing loss H91.90 Acute hyponatremia E87.1 SIADH (syndrome of inappropriate ADH production) E22.2 NF2 (neurofibromatosis 2) Q85.02 Hyperparathyroidism E21.3 Hypertension I10 Gastritis with hemorrhage K29.71 Acute blood loss anemia D62
[2022-10-03] MEDS: ESCITALOPRAM OXALATE 10 MG TAB PO SCH (21:17)
[2022-10-03] MEDS: MELATONIN 3 MG TAB PO SCH (21:21)
[2022-10-04] MEDS: guaiFENesin SUGAR FREE 100 MG/5 ML UDC GT SCH ×5 (01:21→18:31)
[2022-10-04] MEDS: TUBE FEEDING WATER FLUSH PEG SCH ×4 (02:34→18:31)
[2022-10-04] MEDS: MoRPHine SULFATE 2 MG/ML CARP IV PRN (04:19)
[2022-10-04] MEDS: ONDANSETRON INJ 2 MG/ML 2 ML VIAL IV PRN (04:19)
[2022-10-04] MEDS: SODIUM CHLOR 7% 4 ML NEB NEB SCH ×2 (07:23→19:23)
[2022-10-04 08:45] LABS: Basophils # (auto) 0.01 K/uL (0-0.2); Basophils % (auto) 0.1 %; Eosinophils # (auto) 0.08 K/uL (0-0.50); Eosinophils % (auto) 0.8 %; Hematocrit (blood only) 24.1 % (34.1-44.9); Hemoglobin 7.8 g/dl (12.0-16.0); Immature Granulocytes # (auto) 0.12 K/uL (0.00-0.02); Immature Granulocytes % (auto) 1.3 %; Lymphocytes # (auto) 0.49 K/uL (1.2-3.4); Lymphocytes % (auto) 5.2 %; Mean Corpuscular Hemoglobin 29.2 pg (25.0-34.0); Mean Corpuscular Hgb Conc 32.4 g/dL (32.0-36.0); Mean Corpuscular Volume 90.3 fL (80.0-100.0); Mean Platelet Volume 10.2 fL (9.4-12.3); Monocytes # (auto) 0.63 K/uL (0.24-0.82); Monocytes % (auto) 6.7 %; Neutrophils % (auto) 85.9 %; Platelet Count 522 K/uL (130-400); RDW Coefficient of Variation 15.6 % (11.5-14.5); RDW Standard Deviation 49.8 fL (36.4-46.3); Red Blood Count 2.67 M/uL (3.93-5.22); White Blood Count 9.43 K/ul (4.8-10.8)
[2022-10-04 09:05] LABS: Albumin Globulin Ratio 0.7 (0.9-2); Albumin Level 2.4 gm/dl (3.4-5.0); BUN Creatinine Ratio 47.7 (10-20); Bilirubin,Total 0.3 mg/dl (0.2-1.0); Calcium 8.1 mg/dl (8.5-10.1); Creatinine Clr Calc Pharmacy 71.7 ml/min; Est GFR (African American) 108.2 ml/min; Est GFR (Non-African American) 93.3 ml/min; Globulin 3.4 gm/dl (2.5-4.0); Magnesium 1.9 mg/dl (1.7-2.4); Phosphorus 3.2 mg/dl (2.5-4.9); Potassium 4.8 mmol/L (3.5-5.1); Total Protein 5.8 gm/dl (6.0-8.3)
[2022-10-04 09:12] LABS: RBC Morphology Unremarkable
[2022-10-04 09:23] LABS: Ferritin 348.8 ng/ml (8-388)
[2022-10-04] MEDS: SODIUM CHLORIDE 1 GM TABLET PO SCH ×2 (09:45→20:13)
[2022-10-04] MEDS: POTASSIUM CHLORIDE 20 MEQ/15 ML UDC PEG SCH (09:45)
[2022-10-04] MEDS: lisinopril 5 MG TAB PO SCH (09:45)
[2022-10-04] MEDS: ACETAMINOPHEN 500 MG TAB PO SCH ×2 (09:46→14:50)
[2022-10-04] MEDS: CINACALCET HCL 30 MG TAB PO SCH (09:46)
[2022-10-04] MEDS: HEPARIN SOD 5,000 UNIT/0.5 ML VIAL SQ SCH ×2 (09:46→20:13)
[2022-10-04] MEDS: MULTI VIT W/MINERALS LIQUID 15 ML UDP PEG SCH (09:47)
[2022-10-04] MEDS: PANTOprazole 40 MG in SYRINGE 0 ML IV SCH ×2 (09:47→20:12)
[2022-10-04] MEDS: SENNOSIDES 8.8 MG/5 ML UDC PEG SCH ×2 (09:47→20:11)
[2022-10-04] MEDS: IRON SUCROSE 300 MG in SODIUM CHLORIDE 0.9% 250 ML IV SCH (11:33)
--- NOTE | 2022-10-04 13:36 | Palliative Care Progress Note ---
Date of Service October 04, 2022 Assessment & Plan (1) Palliative care encounter: Plan: She has told her that she does not think that she is going to get better and he is tearful discussing this. He showed me a copy of Rubi's mother's living will. It specifies that she would not want resuscitation or treatment if she were not likely to get better. Per Mr. Arzate, Rubi has said that she would want the same for herself. Family is all in agreement with trial of rehab with the hope that she is able to get stronger and be able to come home. I reviewed our discussion yesterday with Mr. 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 Form is signed and on chart. Admission and Anticipated Discharge Date Admission Date: September 19, 2022 Subjective Complains of feeling tired. Hemoglobin has been stable since transfusion Review of Systems Review of Systems: ESAS Pain 1/3 Dyspnea 0/3 Nausea 0/3 Fatigue 2/3 Drowsiness 1/3 PPS 40% Physical Exam Constitutional: + frail appearing; no acute distress ENMT: Ears: + hearing impairment Mouth: oral mucous membranes not dry Respiratory: normal respiratory effort; no labored breathing Cardiovascular: Rate/Rhythm: regular rate and regular rhythm Neurologic: Speech / Cognition: normal cognition Results & Data ([facility]) Vital Signs (Past 12 Hours) Vital Signs Temp Pulse Resp BP Pulse Ox O2 Del Method O2 Flow Rate 10/04/22 11:35 97.9 F 84 16 118/63 95 Nasal Cannula 10/04/22 07:43 97.3 F L 78 18 103/55 L 95 Room Air 10/04/22 07:23 82 19 95 Nasal Cannula 2 PG Care Time/CCT Total # of Minutes Spent Total Time Spent: 23 Total Time Spent with Patient: Total time spent is greater than 50% in coordination of care (as documented) at patient's floor/unit and/or counseling patient: goals of care, code status, POLST Coding Level of Care Code 61349 Subseq Hosp Care Lvl 2 Diagnoses Palliative care encounter Z51.5
--- NOTE | 2022-10-04 14:03 | Hospitalist Progress Note ---
Date of Service October 04, 2022 Assessment & Plan (1) Aspiration pneumonia: Plan: b/l lower lobe pneumonia - extensive. Has now completed 7 days of Zosyn, is improved MRSA swab negative; thus has not received MRSA coverage. Steroids discontinued by PULM after 2 doses Due to ongoing aspiration and inability to clear secretions Appreciate PULM consult PEG tube does not prevent aspiration Continue pulm toilet, flutter valve, saline nebs, chest PT add on Duonbes tid scheduled along with the saline nebs given diffuse rhonchi today No PE seen on CTA chest The pleuritic pain was likely due to the extensive LLL pneumonia with parapneumo mikaela effusion. Empyema is possible but unlikely. Pain now resolved Palliative care consultation appreciated Family aware of possibility of recurrent aspiration Brain MRI IACs from 08/2021 reviewed from [facility] system shows chronic cystic changes from previous cranial surgeries and stable size of left acoustic [place] Very well could have a neurologic cause of her dysphagia -continue supplemental O2 as needed to keep POx> 92% (2) Aspiration into airway: Plan: Video swallow on 09/23 was markedly abnormal with evidence of aspiration with all consistencies. Thus, s/p g-tube placement on 09/26. dysphagia 2nd to prior nerve damage from treatment for acoustic neuroma? other cause? (3) Sacral fracture: Plan: nondisplaced sacral fracture on admission imaging. Pain control PRN. Appreciate Orthopedics consult - WBAT, but has essentially been bed-bound since admission. (4) Acute hyponatremia: Plan: Na generally holds in high 120 - 130 range. 2nd SIADH. Na levels had been very stable until tube feedings with free water flushes were started. 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 cont PPI bid. hold asa and any NSAIDs. -Fe studies show transferrin sat 15% give Venofer 300mg IV daily -follow CBC (7) Hypertension: Plan: received 2 doses decadron but now stopped BPs still low normal some due to anemia likely follow (8) Hearing loss: Plan: Patient hearing loss is chronic and communicates with family members using iPad dictator. 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 likely also the reson for her acoustic neuromas (12) Hyperparathyroidism: Plan: Calcium stable. continue cinacalcet via G-tube. Plan DVT proph- heparin 5000 BID Dispo-continued stay, Palliative consult appreciated-had family meeting for goals of care discussion -POLST to be filled out prior to discharge to rehab Plan for discharge to [facility] hopefully Sat if sodium improved and after receives 2nd dose of venofer Admission and Anticipated Discharge Date Admission Date: September 19, 2022 Subjective Pt reports feeling very tired, has a productive cough. Denies pain or SOB. Had a small BM yesterday. Is reluctant to get out of bed. Discussed her care with her at the bedside Review of Systems Review of Systems: All systems reviewed & are unremarkable except as noted in HPI & below Physical Exam Physical Exam: gen - alert and awake, NAD, thin heart - RRR, s1 s2, no murmur lungs - +diffuse rhonchi, no wheezes or crackles abd - soft NT ND BS+; g-tube insertion site clean, no drainage ext - no edema HENT - severe hearing impairment speech - phonation is abnormal, likely due to chronic hearing loss Results & Data Results & Data ([facility]) Vital Signs (Past 12 Hours) Vital Signs Temp Pulse Resp BP Pulse Ox O2 Del Method O2 Flow Rate 10/04/22 13:34 86 15 137/59 L 94 Nasal Cannula 10/04/22 11:35 36.6 C 84 16 118/63 95 Nasal Cannula 10/04/22 07:43 36.3 C L 78 18 103/55 L 95 Room Air 11/04/22 07:23 82 19 95 Nasal Cannula 2 Laboratory Results 10/04/22 10/04/22 10/04/22 Range/Units 08:19 08:19 08:19 WBC 9.43 (4.8-10.8) K/ul RBC 2.67 L (3.93-5.22) M/uL Hgb 7.8 L (12.0-16.0) g/dl Hct 24.1 L (34.1-44.9) % MCV 90.3 (80.0-100.0) fL MCH 29.2 (25.0-34.0) pg MCHC 32.4 (32.0-36.0) g/dL RDW Std Deviation 49.8 H (36.4-46.3) fL RDW Coeff of Missy 15.6 H (11.5-14.5) % Plt Count 522 H (130-400) K/uL MPV 10.2 (9.4-12.3) fL Immature Gran % (Auto) 1.3 % Neut % (Auto) 85.9 % Lymph % (Auto) 5.2 % [place] % (Auto) 6.7 % Eos % (Auto) 0.8 % Baso % (Auto) 0.1 % Neut # (Auto) 8.10 H (1.4-6.5) K/uL Lymph # (Auto) 0.49 L (1.2-3.4) K/uL [place] # (Auto) 0.63 (0.24-0.82) K/uL Eos # (Auto) 0.08 (0-0.50) K/uL Baso # (Auto) 0.01 (0-0.2) K/uL Immature Gran # (Auto) 0.12 H (0.00-0.02) K/uL RBC Morphology Unremarkable Sodium 129 L (136-145) mmol/L Potassium 4.8 (3.5-5.1) mmol/L Chloride 97 L (98-107) mmol/L Carbon Dioxide 29 (21-32) mmol/L Anion Gap 3 (3-11) BUN 21 (6-23) mg/dl Creatinine 0.44 L (0.6-1.2) mg/dl Est Cr Clr Drug Dosing 71.7 ml/min Est GFR ( Amer) 108.2 ml/min Est GFR (Non-Af Amer) 93.3 ml/min BUN/Creatinine Ratio 47.7 H (10-20) Glucose 125 H (70-99(Fasting)) mg/dl Calcium 8.1 L (8.5-10.1) mg/dl Phosphorus 3.2 (2.5-4.9) mg/dl Magnesium 1.9 (1.7-2.4) mg/dl Iron 32 L (35-150) mcg/dl TIBC 215 L (250-450) mcg/dl Unsaturated IBC 183 (155-355) mcg/dl Transferrin % Sat 15 (15-50) % Ferritin 348.8 (8-388) ng/ml Total Bilirubin 0.3 (0.2-1.0) mg/dl AST 33 (13-39) U/L ALT 54 H (7-52) U/L Alkaline Phosphatase 250 H (34-104) U/L Total Protein 5.8 L (6.0-8.3) gm/dl Albumin 2.4 L (3.4-5.0) gm/dl Globulin 3.4 (2.5-4.0) gm/dl Albumin/Globulin Ratio 0.7 L (0.9-2) Folate 12.68 (>5.38) ng/ml PG Care Time/CCT Total # of Minutes Spent Total Time Spent with Patient: Total time spent is greater than 50% in coordination of care (as documented) at patient's floor/unit and/or counseling patient: Coding Level of Care Code 83496 Subseq Hosp Care Lvl 2 Diagnoses Aspiration pneumonia J69.0 Aspiration into airway T17.908A Sacral fracture S32.10XA Acute hyponatremia E87.1 SIADH (syndrome of inappropriate ADH production) E22.2 Gastritis with hemorrhage K29.71 Hypertension I10 Hearing loss H91.90 Acute blood loss anemia D62 Nausea R11.0 NF2 (neurofibromatosis 2) Q85.02 Hyperparathyroidism E21.3
[2022-10-04] MEDS ORDERED: ALBUT/IPRATROP 3MG/0.5MG NEB 3 ML VIAL NEB PRN (14:12)
[2022-10-04] MEDS: ALBUT/IPRATROP 3MG/0.5MG NEB 3 ML VIAL NEB SCH ×2 (14:48→19:22)
[2022-10-04] MEDS ORDERED: Nursing to Pharmacy Communication SCH (15:15)
[2022-10-04] MEDS: ACETAMINOPHEN SUSP 325 MG/10.15 ML UDC PO SCH (20:10)
[2022-10-04] MEDS: ESCITALOPRAM OXALATE 10 MG TAB PO SCH (20:11)
[2022-10-04] MEDS: MELATONIN 3 MG TAB PO SCH (20:12)
[2022-10-05] MEDS: TUBE FEEDING WATER FLUSH PEG SCH ×3 (02:52→20:20)
[2022-10-05] MEDS: guaiFENesin SUGAR FREE 100 MG/5 ML UDC GT SCH ×5 (02:52→22:39)
[2022-10-05] MEDS: MoRPHine SULFATE 2 MG/ML CARP IV PRN (05:37)
[2022-10-05] MEDS: ONDANSETRON INJ 2 MG/ML 2 ML VIAL IV PRN ×2 (05:37→22:39)
[2022-10-05] MEDS: SODIUM CHLOR 7% 4 ML NEB NEB SCH ×2 (07:14→19:42)
[2022-10-05] MEDS: ALBUT/IPRATROP 3MG/0.5MG NEB 3 ML VIAL NEB SCH ×3 (07:14→19:42)
[2022-10-05 07:37] LABS: Basophils # (auto) 0.02 K/uL (0-0.2); Basophils % (auto) 0.2 %; Eosinophils # (auto) 0.07 K/uL (0-0.50); Eosinophils % (auto) 0.7 %; Hematocrit (blood only) 23.1 % (34.1-44.9); Hemoglobin 7.5 g/dl (12.0-16.0); Immature Granulocytes # (auto) 0.15 K/uL (0.00-0.02); Immature Granulocytes % (auto) 1.5 %; Lymphocytes # (auto) 0.46 K/uL (1.2-3.4); Lymphocytes % (auto) 4.6 %; Mean Corpuscular Hemoglobin 28.7 pg (25.0-34.0); Mean Corpuscular Hgb Conc 32.5 g/dL (32.0-36.0); Mean Corpuscular Volume 88.5 fL (80.0-100.0); Monocytes # (auto) 0.82 K/uL (0.24-0.82); Monocytes % (auto) 8.3 %; Neutrophils # (auto) 8.38 K/uL (1.4-6.5); Neutrophils % (auto) 84.7 %; Platelet Count 484 K/uL (130-400); RDW Coefficient of Variation 15.9 % (11.5-14.5); RDW Standard Deviation 49.4 fL (36.4-46.3); Red Blood Count 2.61 M/uL (3.93-5.22)
[2022-10-05 08:05] LABS: Polychromasia 1+
[2022-10-05 08:31] LABS: BUN Creatinine Ratio 48.6 (10-20); Calcium 7.9 mg/dl (8.5-10.1); Creatinine Clr Calc Pharmacy 85.3 ml/min; Est GFR (African American) 114.5 ml/min; Est GFR (Non-African American) 98.8 ml/min; Potassium 4.6 mmol/L (3.5-5.1)
[2022-10-05] MEDS: PANTOprazole 40 MG in SYRINGE 0 ML IV SCH ×2 (08:32→20:19)
[2022-10-05] MEDS: HEPARIN SOD 5,000 UNIT/0.5 ML VIAL SQ SCH ×2 (08:32→20:20)
[2022-10-05] MEDS: lisinopril 5 MG TAB PO SCH (08:33)
[2022-10-05] MEDS: SODIUM CHLORIDE 1 GM TABLET PO SCH ×2 (08:33→20:19)
[2022-10-05] MEDS: MULTI VIT W/MINERALS LIQUID 15 ML UDP PEG SCH (08:33)
[2022-10-05] MEDS: CINACALCET HCL 30 MG TAB PO SCH (08:33)
[2022-10-05] MEDS: IRON SUCROSE 300 MG in SODIUM CHLORIDE 0.9% 250 ML IV SCH (08:34)
[2022-10-05] MEDS: POTASSIUM CHLORIDE 20 MEQ/15 ML UDC PEG SCH (08:34)
[2022-10-05] MEDS: SENNOSIDES 8.8 MG/5 ML UDC PEG SCH ×2 (08:34→20:18)
[2022-10-05] MEDS: ACETAMINOPHEN SUSP 325 MG/10.15 ML UDC PO SCH ×3 (08:34→20:17)
[2022-10-05] MEDS: PEPTAMEN 1.5 CAL 1,000 ML BAG PEG SCH (18:25)
[2022-10-05] MEDS: MELATONIN 3 MG TAB PO SCH (20:18)
[2022-10-05] MEDS: ESCITALOPRAM OXALATE 10 MG TAB PO SCH (20:18)
--- NOTE | 2022-10-05 20:34 | Hospitalist Progress Note ---
Date of Service October 05, 2022 Assessment & Plan (1) Aspiration pneumonia: Plan: b/l lower lobe pneumonia - extensive. Has now completed 7 days of Zosyn, is improved MRSA swab negative; thus has not received MRSA coverage. Steroids discontinued by PULM after 2 doses Due to ongoing aspiration and inability to clear secretions Appreciate PULM consult PEG tube does not prevent aspiration Continue pulm toilet, flutter valve, saline nebs, chest PT continue Duonebs tid scheduled along with the saline nebs given diffuse rhonchi today -now improved No PE seen on CTA chest The pleuritic pain was likely due to the extensive LLL pneumonia with parapneumonic effusion. Empyema is possible but unlikely. Pain now resolved Palliative care consultation appreciated Family aware of possibility of recurrent aspiration Brain MRI IACs from 08/2021 reviewed from [facility] shows chronic cystic changes from previous cranial surgeries and stable size of left acoustic Schwannoma Very well could have a neurologic cause of her dysphagia -continue supplemental O2 as needed to keep POx> 92% (2) Aspiration into airway: Plan: Video swallow on 09/23 was markedly abnormal with evidence of aspiration with all consistencies. Thus, s/p g-tube placement on 09/26. dysphagia 2nd to prior nerve damage from treatment for acoustic neuroma? other cause? (3) Sacral fracture: Plan: nondisplaced sacral fracture on admission imaging. Pain control PRN. Using morphine prn IV but need to switch to liquid roxanol prn continue scheduled tylenol tid Appreciate Orthopedics consult - WBAT, but has essentially been bed-bound since admission. Did get out of bed to chair with PT on 10/04 (4) Acute hyponatremia: Plan: Na generally holds in high 120 - 130 range. 2nd SIADH. Na levels had been very stable until tube feedings with free water flushes were started. Na levels then dropped to 129 and free water flush reduced again 10/04 -continue NaCl tabs Now Na+ up to 131 -continue free water flushes to 100 mL q8h -follow BMP here tomorrow and then periodically at rehab (5) SIADH (syndrome of inappropriate ADH production): Plan: as above (6) Gastritis with hemorrhage: Plan: With anemia hgb was stable at 8 and now down again to 7.8 and then 7.5 gastritis as seen on EGD during g-tube placement. cont PPI bid but change from Protonix IV to Prevacid 15mg per GT bid. hold asa and any NSAIDs. -Fe studies show transferrin sat 15% give Venofer 300mg IV daily x 3 doses -no need for transfusion today -follow CBC (7) Hypertension: Plan: received 2 doses decadron but now stopped BPs still low normal some due to anemia likely follow (8) Hearing loss: Plan: Patient hearing loss is chronic and communicates with family members using iPad dictator. 2nd to acoustic neuroma s/p surgery on right has another acoustic neuroma on left (per ) (9) Acute blood loss anemia: Plan: 2nd to gastritis, GT placement folate and B12 normal Fe studies low as above giving Venofer transfuse if < 7 (10) Nausea: Plan: resolved 2nd to gastritis as seen on EGD during g-tube placement? 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 likely also the reson for her acoustic neuromas (12) Hyperparathyroidism: Plan: Calcium stable. continue cinacalcet via G-tube. Plan DVT proph- heparin 5000 BID Dispo-continued stay, Palliative consult appreciated-had family meeting for goals of care discussion -POLST to be filled out prior to discharge to rehab Plan for discharge to [facility] hopefully 1-2 days if sodium improved and hgb remains stable Admission and Anticipated Discharge Date Admission Date: September 19, 2022 Subjective Pt reports feeling a little better, some cough, lungs seem clearer, bringing up small amount of phlegm. Still tired but reports she did get out of bed yesterday. No pain in sacral region. No BM today. Review of Systems Review of Systems: All systems reviewed & are unremarkable except as noted in HPI & below Physical Exam Physical Exam: gen - alert and awake, NAD, thin heart - RRR, s1 s2, no murmur lungs - no CTAB, no wheezes,crackles, or rhonchi, much improved abd - soft NT ND BS+; g-tube insertion site clean, no drainage ext - no edema HENT - severe hearing impairment speech - phonation is abnormal, likely due to chronic hearing loss Results & Data Results & Data ([facility]) Vital Signs (Past 12 Hours) Vital Signs Temp Pulse Resp BP Pulse Ox O2 Del Method O2 Flow Rate 10/05/22 19:44 82 16 96 Nasal Cannula 2 10/05/22 15:40 36.9 C 82 16 127/66 96 Nasal Cannula 2 10/05/22 13:19 84 18 94 Nasal Cannula 2 10/05/22 08:40 Nasal Cannula 2 Laboratory Results 10/05/22 10/05/22 Range/Units 06:46 06:46 WBC 9.90 (4.8-10.8) K/ul RBC 2.61 L (3.93-5.22) M/uL Hgb 7.5 L (12.0-16.0) g/dl Hct 23.1 L (34.1-44.9) % MCV 88.5 (80.0-100.0) fL MCH 28.7 (25.0-34.0) pg MCHC 32.5 (32.0-36.0) g/dL RDW Std Deviation 49.4 H (36.4-46.3) fL RDW Coeff of Missy 15.9 H (11.5-14.5) % Plt Count 484 H (130-400) K/uL MPV 10.0 (9.4-12.3) fL Immature Gran % (Auto) 1.5 % Neut % (Auto) 84.7 % Lymph % (Auto) 4.6 % [place] % (Auto) 8.3 % Eos % (Auto) 0.7 % Baso % (Auto) 0.2 % Neut # (Auto) 8.38 H (1.4-6.5) K/uL Lymph # (Auto) 0.46 L (1.2-3.4) K/uL [place] # (Auto) 0.82 (0.24-0.82) K/uL Eos # (Auto) 0.07 (0-0.50) K/uL Baso # (Auto) 0.02 (0-0.2) K/uL Immature Gran # (Auto) 0.15 H (0.00-0.02) K/uL Polychromasia 1+ Sodium 131 L (136-145) mmol/L Potassium 4.6 (3.5-5.1) mmol/L Chloride 99 (98-107) mmol/L Carbon Dioxide 30 (21-32) mmol/L Anion Gap 2 L (3-11) BUN 18 (6-23) mg/dl Creatinine 0.37 L (0.6-1.2) mg/dl Est Cr Clr Drug Dosing 85.3 ml/min Est GFR ( Amer) 114.5 ml/min Est GFR (Non-Af Amer) 98.8 ml/min BUN/Creatinine Ratio 48.6 H (10-20) Glucose 118 H (70-99(Fasting)) mg/dl Calcium 7.9 L (8.5-10.1) mg/dl PG Care Time/CCT Total # of Minutes Spent Total Time Spent with Patient: Total time spent is greater than 50% in coordination of care (as documented) at patient's floor/unit and/or counseling patient: Coding Level of Care Code 33538 Subseq Hosp Care Lvl 2 Diagnoses Aspiration pneumonia J69.0 Aspiration into airway T17.908A Sacral fracture S32.10XA Acute hyponatremia E87.1 SIADH (syndrome of inappropriate ADH production) E22.2 Gastritis with hemorrhage K29.71 Hypertension I10 Hearing loss H91.90 Acute blood loss anemia D62 Nausea R11.0 NF2 (neurofibromatosis 2) Q85.02 Hyperparathyroidism E21.3
[2022-10-06] MEDS: MoRPHine SULFATE 2 MG/ML CARP IV PRN ×2 (01:46→09:33)
[2022-10-06] MEDS: TUBE FEEDING WATER FLUSH PEG SCH ×2 (01:47→12:39)
[2022-10-06] MEDS: ONDANSETRON INJ 2 MG/ML 2 ML VIAL IV PRN (05:08)
[2022-10-06] MEDS: guaiFENesin SUGAR FREE 100 MG/5 ML UDC GT SCH ×2 (05:08→13:30)
[2022-10-06 06:55] LABS: Basophils # (auto) 0.02 K/uL (0-0.2); Basophils % (auto) 0.2 %; Eosinophils # (auto) 0.13 K/uL (0-0.50); Eosinophils % (auto) 1.3 %; Hematocrit (blood only) 24.7 % (34.1-44.9); Hemoglobin 7.9 g/dl (12.0-16.0); Immature Granulocytes # (auto) 0.16 K/uL (0.00-0.02); Immature Granulocytes % (auto) 1.6 %; Lymphocytes # (auto) 0.48 K/uL (1.2-3.4); Lymphocytes % (auto) 4.8 %; Mean Corpuscular Hemoglobin 29.3 pg (25.0-34.0); Mean Corpuscular Volume 91.5 fL (80.0-100.0); Mean Platelet Volume 9.8 fL (9.4-12.3); Monocytes # (auto) 0.77 K/uL (0.24-0.82); Monocytes % (auto) 7.8 %; Neutrophils # (auto) 8.36 K/uL (1.4-6.5); Neutrophils % (auto) 84.3 %; Platelet Count 509 K/uL (130-400); RDW Coefficient of Variation 16.1 % (11.5-14.5); RDW Standard Deviation 52.1 fL (36.4-46.3); White Blood Count 9.92 K/ul (4.8-10.8)
[2022-10-06] MEDS: ALBUT/IPRATROP 3MG/0.5MG NEB 3 ML VIAL NEB SCH ×2 (07:16→13:02)
[2022-10-06] MEDS: SODIUM CHLOR 7% 4 ML NEB NEB SCH (07:16)
[2022-10-06 07:24] LABS: Polychromasia 1+
[2022-10-06 07:29] LABS: Albumin Level 2.5 gm/dl (3.4-5.0); BUN Creatinine Ratio 45.5 (10-20); Bilirubin,Total 0.3 mg/dl (0.2-1.0); Calcium 7.9 mg/dl (8.5-10.1); Creatinine Clr Calc Pharmacy 96.2 ml/min; Est GFR (African American) 118.9 ml/min; Est GFR (Non-African American) 102.6 ml/min; Magnesium 1.9 mg/dl (1.7-2.4); Phosphorus 2.6 mg/dl (2.5-4.9); Potassium 4.5 mmol/L (3.5-5.1); Total Protein 5.9 gm/dl (6.0-8.3)
[2022-10-06] MEDS ORDERED: LANSOPRAZOLE 15 MG SOLTAB GT SCH (09:00)
[2022-10-06] MEDS: CINACALCET HCL 30 MG TAB PO SCH (09:38)
[2022-10-06] MEDS: ACETAMINOPHEN SUSP 325 MG/10.15 ML UDC PO SCH ×2 (09:38→13:30)
[2022-10-06] MEDS: lisinopril 5 MG TAB PO SCH (09:38)
[2022-10-06] MEDS: MULTI VIT W/MINERALS LIQUID 15 ML UDP PEG SCH (09:39)
[2022-10-06] MEDS: SODIUM CHLORIDE 1 GM TABLET PO SCH (09:39)
[2022-10-06] MEDS: SENNOSIDES 8.8 MG/5 ML UDC PEG SCH (09:39)
[2022-10-06] MEDS: HEPARIN SOD 5,000 UNIT/0.5 ML VIAL SQ SCH (10:11)
[2022-10-06] MEDS: IRON SUCROSE 300 MG in SODIUM CHLORIDE 0.9% 250 ML IV SCH (10:17)
[2022-10-06] MEDS ORDERED: bisacodyL 10 MG SUPP PR STA (11:17)
--- NOTE | 2022-10-06 11:50 | Discharge Summary ---
Date of Service October 06, 2022 Admission HPI Per Admitting Provider Rubi Arzate is an 82 year old female who presents to the ER with a fall and generalized weakness. Patient is deaf and communication difficult but she uses an ipad to dictate what I am saying to her. She was recently admitted for generalized weakness from August 30 - September 02, 2022 due to generalized weakness and presyncope. Suspected due to acute on chronic hyponatremia. On this occasion she was so weak her had to help her up in bed. She managed to stand with the walker and finally got to the bathroom. She left the walker along the vanity and made her way around to get on the commode when she fell back wards. Reportedly did not hit her head or lose consciousness. Although presyncope was mentioned in EMS notes the patient denies any prodromal symptoms. She does note having a headache yesterday with nasal congestion but that has completely cleared up. She has a chronic cough. She has had significant back pain since the fall and was reportedly hypoxic en route to the hospital with O2 sats 68 % on room air. No head, neck, upper extremity or thoracic back pain. Reportedly the patient was presyncopal by EMS. No hitting her head or loss of consciousness. Back pain since the fall. O2 sats 68% on room air en route. In the ER CT abdo/pelvis showed comminuted fracture of the sacrum which is likely acute. She was referred to medicine for admission and ongoing mangement of this. Principal Diagnosis Sacral fracture, ambulatory dysfunction, Aspiration PNA, s/p PEG tube Hyponatremia, Anemia Constipation Discharge Exam gen - alert and awake, NAD, thin heart - RRR, s1 s2, no murmur lungs - no CTAB, no wheezes,crackles, or rhonchi, much improved abd - soft NT ND BS+; g-tube insertion site clean, no drainage ext - no edema HENT - severe hearing impairment speech - phonation is abnormal, likely due to chronic hearing loss Discharge Data Allergies Allergy/AdvReac Type Severity Reaction Status Date / Time Cephalosporins Allergy Intermediate RASH Verified 09/19/22 14:57 cefazolin Allergy Unknown UNKNOWN Verified 09/19/22 14:57 donepezil [From Aricept] Allergy Unknown Unknown Verified 09/19/22 14:57 adhesive tape Allergy Unknown Verified 09/19/22 14:57 amlodipine [From Norvasc] Allergy Edema Verified 09/19/22 14:57 Sulfa (Sulfonamide Allergy Unknown Verified 09/19/22 14:57 Antibiotics) Consultations 09/19/22 14:32 ED Decision to Admit Stat 09/21/22 17:51 Consult Orthopedic Surgery Routine 09/24/22 14:34 Consult General Surgery Routine 10/01/22 13:51 Consult Pulmonology Routine 10/01/22 15:26 Consult Palliative Care Routine Procedures Performed Operation Date: 09/26/22 09:45 Actual Procedures p Esophagogastroduodenoscopy with Gastric Biopsy - Iglesia Stovall DO s Gastric Tube Placement - Iglesia Stovall DO Ordered Studies 09/19/22 10:54 CT abd pelvis wo con Stat CT lumbar spine wo con Stat 09/23/22 08:30 FL video swallow Routine 09/25/22 14:37 CT abd pelvis IV con only Routine CT chest diagnostic wo con Routine 09/30/22 14:24 CT angio chest PE protocol Stat Hospital Course (1) Aspiration pneumonia: b/l lower lobe pneumonia - extensive. Has now completed 7 days of Zosyn, is improved MRSA swab negative; thus has not received MRSA coverage. Steroids discontinued by PULM after 2 doses Due to ongoing aspiration and inability to clear secretions Appreciate PULM consult PEG tube does not prevent aspiration Continue pulm toilet, flutter valve, saline nebs, chest PT received Duonebs tid scheduled along with the saline nebs given diffuse rhonchi -now improved. Continue on DUonebs bid scheduled No PE seen on CTA chest The pleuritic pain was likely due to the extensive LLL pneumonia with parapneumonic effusion. Empyema is possible but unlikely. Pain now resolved Palliative care consultation appreciated Family aware of possibility of recurrent aspiration Brain MRI IACs from 08/2021 reviewed from [facility] shows chronic cystic changes from previous cranial surgeries and stable size of left acoustic Schwannoma Very well could have a neurologic cause of her dysphagia -continue supplemental O2 as needed to keep POx> 92% (2) Aspiration into airway: Video swallow on 09/23 was markedly abnormal with evidence of aspiration with all consistencies. Thus, s/p g-tube placement on 09/26. dysphagia 2nd to prior nerve damage from treatment for acoustic neuroma? other cause? (3) Sacral fracture: nondisplaced sacral fracture on admission imaging. Pain control PRN. Using morphine prn IV but need to switch to liquid oxycodone prn continue scheduled tylenol tid Appreciate Orthopedics consult - WBAT, but has essentially been bed-bound since admission. Did get out of bed to chair with PT on 10/04. f/u with Ortho (4) Acute hyponatremia: Na generally holds in high 120 - 130 range. 2nd SIADH. Na levels had been very stable until tube feedings with free water flushes were started. 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 Now up to 7.9 after 3 doses Venofer IV gastritis as seen on EGD during g-tube placement. cont PPI Prevacid 15mg per GT bid. dcd asa and any NSAIDs. -Fe studies show transferrin sat 15% -follow CBC (7) Hypertension: BPs normal continue lisinopril follow (8) Hearing loss: Patient hearing loss is chronic and communicates with family members using iPad dictator. 2nd to acoustic neuroma s/p surgery on right has another acoustic neuroma on left (per ) (9) Acute blood loss anemia: 2nd to gastritis, GT placement folate and B12 normal Fe studies low as above giving Venofer transfuse if < 7 but stable for many days (10) Nausea: resolved 2nd to gastritis as seen on EGD during g-tube placement? 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 likely also the reson for her acoustic neuromas (12) Hyperparathyroidism: Calcium stable. continue cinacalcet via G-tube. (13) Constipation: had a BM on 09/21 then was either NPO or on liquids diet and then eventually on tube feeds since 09/26 Had a BM twice in the last 10 days Bisacodyl suppository given on day of discharge and would continue daily ND as needed continue senna syrup bid -once weaned off opioids for pain, constipation should improve Plan DVT proph- heparin 5000 BID Dispo-dc to rehab today Palliative consult appreciated-had family meeting for goals of care discussion - POLST to be filled out prior to discharge to rehab Total Time Total Time Spent Total Time Spent (In Minutes): 45 min Discharge Plan Discharge Items Patient Disposition: Transfer Inpatient Rehab Fac Reason For Visit: PELVIS FX,GENERALIZED WEAKNESS Discharge Diagnosis: sacral fracture Aspiration pneumonia, now s/p PEG tube Anemia, gastritis Hyponatremia Constipation Condition on Discharge: Fair Activity: As commented below Bathing: No limitations Bathing Comment: do not soak in tub with PEG tube Exercise/Sports: As tolerated Exercise Comment: with assistance Weightbearing: Full weightbearing Weightbearing Comment: with walker Non-emergency contact: Primary Care Provider and Surgeon Call non-emergency contact if: you have any medication questions, your symptoms worsen, your pain is not controlled and you have a fever Follow-up/Referrals: Page Dunn CRNP [Primary Care Provider] - Osito Fernandes MD [Surgeon] - 10/09/22 1:30 pm Diet: Nothing by Mouth Fluids: 1200ml (5 cups) Addtl Attending Provider Instructions: You were admitted with a sacral fracture and were found to have issues with aspiration. You eventually had a PEG tube placed surgically for tube feeds. You did have some gastritis and GI bleeding after tube placement and are anemic. You received IV iron treatments and your blood count remains low at 7.9 but stable. You will need to have labs to include CBC, BMP, Magnesium, phosphorus checked every 3-5 days for now until your electrolytes continue to remain stable (sodium still slightly low at 130 and adjusting free water). You completed antibiotics for your aspiration pneumonia and should continue albuterol nebulizer treatments as well as pulmonary toilet and aspiration precautions, good oral hygiene etc to prevent future pneumonia. You were dealing with constipation and should remain on a bowel regimen to include senna syrup and bisacodyl ND suppositories as needed. This is likely worsened by taking opioid pain medications for your sacral fracture pain. You can take liquid oxycodone as needed through the PEG tube for severe pain and remain on scheduled tylenol for pain. Follow up with Orthopedics as scheduled on 10/09. Addtl Signal [employer]er Provider Instructions: Range of motion and movement of lower extremities as tolerated Weight bear as tolerated with walker assistance Ice PRN pain/swelling. Sacral donut pillow when seating as needed for comfort. Recommend follow up with Dr. Fernandes in 10-14 days. Call [phone] with any questions or concerns and to schedule appointment. Pending Studies at Discharge: No Stand-Alone Forms: My [facility] Skilled Items Patient informed of condition?: Yes DNR: Yes Discharge Level of Care: Acute rehab Communicable Disease: No Discharge Prognosis: Improving Lines: None Urinary Catheter: Yes (trial of void once more mobile) Medications and DC Order Prescriptions: New ipratropium-albuterol 0.5 mg-3 mg(2.5 mg base)/3 mL Solution For Nebulization 3 ml NEB TIDR Qty: 90 0RF acetaminophen 325 mg/10.15 mL Suspension 975 mg feeding tube TID Qty: 304.5 0RF Peptamen 1.5 0.068 gram- 1.5 kcal/mL Liquid See Rx Instructions .ROUTE .COMPLEX Qty: 6000 0RF Rx Instructions: 1,000 mL via peg tube ;40mL/hr continuous feed sennosides [senna] 8.8 mg/5 mL Syrup 8.8 mg PEG BID Qty: 236 0RF lansoprazole [Prevacid SoluTab] 15 mg Tablet,Disintegrat, Delay Rel 15 mg G-tube BID Qty: 60 0RF melatonin 3 mg Tablet 3 mg PO HS Qty: 30 0RF guaifenesin 100 mg/5 mL Liquid 100 mg G-tube Q6H Qty: 473 0RF Centrum 9 mg iron/15 mL Liquid 15 ml PEG QAM Qty: 236 0RF Tube Feeding Water Flush 75 ml PEG Q8H Qty: 1000 0RF bisacodyl 10 mg suppository 10 mg ND DAILY PRN (Reason: constipation) Qty: 12 0RF oxycodone 5 mg/5 mL solution 5 mg PO BID PRN (Reason: pain) Qty: 473 0RF Continued cinacalcet 30 mg tablet 30 mg PO DAILY Qty: 30 0RF Rx Instructions: per PEG tube Changed lisinopril 5 mg tablet 5 mg feeding tube DAILY Qty: 90 3RF sodium chloride 1 gram Tablet 1 g feeding tube BID 30 Days Qty: 60 0RF escitalopram oxalate 5 mg tablet 5 mg feeding tube HS Qty: 30 0RF Discontinued acetaminophen [Tylenol Extra Strength] 500 mg tablet 500 mg PO Q6H PRN (Reason: Pain) aspirin [Aspir-81] 81 mg Tablet,Delayed Release (Dr/Ec) 81 mg PO DAILY Flintstones Tab Chew 100 mcg Tablet,Chewable 1 tab PO DAILY Discharge Orders: Discharge Order (Routine); Ordered 10/06/22 Ordered By: Radha Del Cid Admission Data Admit Date/Time: 09/19/22 14:15 Attending Provider: Radha Del Cid Admit Provider: Richie Cha Primary Care Provider: Page Dunn Other Providers: [facility] ; Richie Cha ; Esvin Degroot ; Fredy Mcclain ; Katarzyna Walter ; Osito Fernandes Coding Level of Care Code D/C DAY MANAGEMENT >30 MINS Diagnoses Aspiration pneumonia J69.0 Aspiration into airway T17.908A Sacral fracture S32.10XA Acute hyponatremia E87.1 SIADH (syndrome of inappropriate ADH production) E22.2 Gastritis with hemorrhage K29.71 Hypertension I10 Hearing loss H91.90 Acute blood loss anemia D62 Nausea R11.0 NF2 (neurofibromatosis 2) Q85.02 Hyperparathyroidism E21.3 Constipation K59.00
== END 2022-10-06 14:50 | DRG 551 ==
LOC: ED 09:32 → SUATTDRO 14:15 → 3N 14:15